=== PATIENT | female | born 1980 | race Caucasian/White ===

== ENCOUNTER 2024-12-02 13:37 | Emergency (ER) | payer MEDICARE, MEDICAID, SELFPAY ==
--- OUTSIDE RECORDS SUMMARY | 2023-08-17 04:15 | XMS_ITS ---
Author Organization [facility] vices Address [address] [place], [place] [id number] Care Team Providers Care Sales Office Administrator Name Role Phone Shi King Primary Care Provider [phone] Cezar Ayoub Unavailable [phone] REASON FOR VISIT labs / surgical referral Social History Sex Assigned At : Social History Observation Description Sex Assigned At Female Encounters Encounter Location Date Provider Diagnosis Main [address] [place], [place] [id number] 08/17/2023 Cezar Ayoub Plan Of Treatment No Information Progress Notes * Truong RIVEARelle LDOB: [birth year] (44 yo F)Acc No.[id number]:08/17/2023 Medical Note Patient: Ida CHILEL :?LEILA Eddy-CDOB:1980???Age:42 Y???Sex: FemaleDate:4Phone:[phone]:[address] [facility], [address], [id number]:Shi King Subjective: * Chief Complaints: * 1 . Labs / surgical referral. * Medical History: Objective: * Vitals: Assessment: Plan: * Treatment: * Billing Information: * Visit Code: * Procedure Codes: * Electronic signature of LEILA Eddy on 12/02/2024 at 02:39 PM EDTSign off status: Pending * Provider: Rekha Ayoub PA-C Date: 0 08/17/2023 Generated for Printing/Faxing/eTransmitting on:?12/02/2024 02:39 PM EDT
--- OUTSIDE RECORDS SUMMARY | 2023-08-19 12:00 | XMS_ITS ---
Author Organization [facility] vices Address [address] [place], [place] [id number] Care Team Providers Care Customer Engineering Specialist Name Role Phone Shi King Primary Care Provider [phone] Meli Tao Unavailable [phone] REASON FOR VISIT f/u Rash -Feet Social History Sex Assigned At : Social History Observation Description Sex Assigned At Female Encounters Encounter Location Date Provider Diagnosis Main [address] [place] [id number] 08/19/2023 Meli Tao Plan Of Treatment No Information Progress Notes * MIGUEL Ida LDOB: [birth year] (44 yo F)Acc No.[id number]:08/19/2023 Medical Note Patient: Ida CHILEL :?Meli So, MSN, INSTRUMENT REPAIRER HELPER, MANAGER IMPLEMENTATION-CDOB: 1980???Age:42 Y???Sex:FemaleDate:08/19/2023hone:[phone]:[address], [address], [place], [id number]:Shi King Subjective: * Chief Complaints: * 1 . f/u Rash -Feet. * Medical History: Objective: * Vitals: Assessment: Plan: * Treatment: * Billing Information: * Visit Code: * Procedure Codes: * Electronic signature of NAOMI Borja on 12/02/2024 at 02:38 PM EDTSign off status: Pending * Provider: Pawel So, MSN, INSTRUMENT REPAIRER HELPER, MANAGER IMPLEMENTATION-C Date: 0 08/19/2023 Generated for Printing/Faxing/eTransmitting on:?12/02/2024 02:38 PM EDT
--- OUTSIDE RECORDS SUMMARY | 2024-11-28 11:02 | XMS_ITS | Encounter Summary ---
Author Organization [facility] Address [address] [place] [address] Care Team Providers Care Internet Sourcer Name Role Phone Unavailable Primary Care Provider Unavailabl e Source Comments In the event this information is protected by the Federal Confidentiality of Alcohol and Drug AbusePatient Records regulations: The Federal rules restrict any use of the information to criminally investigate or prosecute any alcohol or drug abuse patient.[facility] Reason for Visit * Auth/Cert (Routine)SpecialtyDiagnoses / ProceduresReferred By ContactReferred To ContactHOSP INPATIENT Diagnoses Epilepsy, unspecified, not intractable, without status epilepticus (HCC) Procedures EEG PHYS/QHP EA INCR>12HR<26HR AFTER 24HR W/VEEG HOSP MAIN [address] [place] [address] Phone: tel: Referral IDStatusReasonStart DateExpiration DateVisits RequestedVisits [id number] Encounter Details DateTypeDepartmentCare Team (Latest Contact Info)Wgujbnpyrbs59/20/2025 11:02 AM EDT - 12/01/2024 4:17 PM EDTHospital Encounter HOSP MAIN [address] [place] [id number] Jesus Alberto Uriostegui V, MD [address] [place] [address] Erica Morrison MD [address] [place] [address] Epilepsy, unspecified, not intractable, without status epilepticus (HCC) [G40.909] Discharge Disposition: Home Social History Tobacco UseTypesPacks/DayYears UsedDateSmoking Tobacco: NeverSmokeless Tobacco: NeverAlcohol UseStandard Drinks/WeekCommentsNot Currently0 (1 standard drink = 0.6 oz pure alcohol)PHQ-2AnswerDate RecordedPHQ-2 upmnd717Hunger Vital SignAnswerDate RecordedWithin the past 12 months, you worried that your food would run out before you got the money to buymore.Never true11/29/2024Within the past 12 months, the food you bought just didn't last and you didn't have money to get more.Never true11/29/2024PRAPARE - TransportationAnswerDate RecordedIn the past 12 months, has lack of transportation kept you from medical appointments or from getting medications?No11/29/2024In the past 12 months, has lack of transportation kept you from meetings, work, or from getting things needed for daily living?No11/29/2024Housing Stability Vital SignAnswerDate RecordedIn the last 12 months, was there a time when you were not able to pay the mortgage or rent on time?No11/29/2024In the past 12 months, how many times have you moved where you were living?t any time in the past 12 months, were you homeless or living in a penitentiary (including now)?No11/29/2024HC UtilitiesAnswerDate RecordedIn the past 12 months has the electric, gas, oil, or water [employer] threatened to shut off services in your home?No11/29/2024rea Deprivation IndexAnswerDate RecordedNational Score (1-100), lower number is lower rpdx912107/02/2023State Score (1-10), lower number is lower elbd95907/02/2023 Data from: https://www.neighborhoodatlas.[facility].edu/. Last address used for [address]lette MEHTA07/02/[birth year]23CommentsNoSex and Gender InformationValueDate RecordedSex Assigned at BirthNot on fileLegal SexFemale 01/11/2012 8:35 AM ESTGender CyzycxgxYgdqdocng52/20/2025 11:41 AM EDTSexual OrientationLesbian or Gay09/14/2023 10:48 AM EDTdocumented as of this encounter Last Filed Vital Signs Vital SignReadingTime TakenCommentsBlood Oxhpzzdh653/7910 11:29 AM EDT Gguhl0638/23/2025 11:29 AM FSJPuudneqbwkd81.7 ??C (98.1 ??F)12/01/2024 11:29 AM EDTRespiratory Rpcm8306 11:29 AM EDTOxygen Nhsmfcdezq659%12/01/2024 11:29 AM EDTInhaled Oxygen Concentration--Utnvby36.2 kg (148 lb 2.4 oz) 11/28/2024 11:18 AM MGWQlndca397.6 cm (5' 4 )11/28/2024 11:23 AM EDTBody Mass Index25.431 11:18 AM EDTdocumented in this encounter Functional Status * Are you deaf or do you have serious difficulty hearing?AnswerDate of FmeljkiciaRarbwdQo46/01/2024 11:06 AM Angelica Gibson RN * Are you blind or do you have serious difficulty seeing, even when wearing glasses?AnswerDate of IrgdriepnkXwxnvrNs18/01/2024 11:06 AM Angelica Gibson RN * Do you have serious difficulty walking or climbing stairs?AnswerDate of TosiwtgdchNfrkbaPy33/01/2024 11:06 AM Angelica Gibson RN * Because of a physical, mental, or emotional condition, do you have difficulty doing errands alone such as visiting a doctor's office or shopping?AnswerDate of LbqhujoqzfHmfzdvCb58/01/2024 11:06 AM Angelica Gibson RN documented as of this encounter Mental Status * Because of a physical, mental, or emotional condition, do you have serious difficulty concentrating, remembering, or making decisions?AnswerEntry Date ImrqrcGa43/01/2024 11:06 AM Angelica Gibson RN documented in this encounter Discharge Summaries * Lesli Gasca PA-C - 12/01/2024 11:44 AM EDT Images from the original note were not included. DISCHARGE SUMMARY PATIENT NAME: Ida Jacome ADMISSION DATE: 11/28/2024 DISCHARGE DATE: 12/01/2024 ADMITTING SERVICE: Epilepsy ATTENDING PHYSICIAN: Erica Morrison MD Code Status: Not on file Referring/Secondary Physician: NA Highest Readmission Risk Score: 5 The 30 day readmissions risk score is derived from an internally validated risk model which evaluates patient level characteristics, utilization history, medication orders and lab results up until the day of discharge. Patients with a score of 39 or above are considered highest risk for readmission. Specific patient level drivers will be listed at the bottom of the summary. The 30 day readmissions risk score is derived from an internally validated risk model which evaluates patient level characteristics, utilization history, medication orders and lab results up until the day of discharge. Patients with a score of 40 or above are considered highest risk for readmission. Specific patient level drivers will be listed at the bottom of the summary. REASON FOR HOSPITALIZATION: Breakthrough Seizures IMPORTANT TESTS AND PROCEDURES: Continuous Video EEG and EKG HOSPITAL COURSE: This is 43 yo RH nonbinary patient (female at , they/them) with history of focal epilepsy who presented for continued auras/seizures multiple times per week despite up titration of anti-seizure medication. Current events of concern started around 3 years ago, however also had prior different events of passing out/LOC dating back to 19 yo. EEG in June 2023 captured one seizure characterized asarousal from sleep with tachycardia and feeling hot, EEG onset from left temporal region, and completed MRI Brain that was non-focal. They were started on Oxcarbazepine 450 mg BID, has since been increased to total of 1500 mg/day. Despite increase patient has continued to have auras/seizures multiple times per week, sometimes in clusters up to 20 per day. Now admitted for seizure burden assessment. Of note, patient also expressed other medical concerns on admission including vision changes, episodes of right facial droop, ear ringing, and concern about possible thyroid dysfunction. They were monitored on continuous video-EEG from 11/28-12/01/2024, Oxcarbazepine was continued at home dose. Patient had ten epileptic seizures on medications, semiology consistent with home description and seizure captured in June 2023, feeling hot, palpitations, nausea, and can progress to unresponsiveness (occurred from sleep and wakefulness). See separate EEG report for further details. Duringadmission patient required Midazolam IV for seizure cluster, and then was loaded with Lacosamide 200 mg IV. EKG completed before LCM load, VT interval WNL. Then started on Lacosamide 100 mg BID PO, with plan to increase to 150 mg BID in one week. Will continue Oxcarbazepine at dose of 600 mg BID x1 week then STOP. Patient also given Clonazepam 0.5 mg ODT for seizure clusters. Seizure precautions advised. Lab form provided to go to local lab to check trough Lacosamide level after being on goal dose x1 week. FINAL DIAGNOSIS: Active Hospital Problems Diagnosis POA Focal epilepsy (HCC) Yes Hyponatremia Yes Adult ADHD Yes Anxiety Yes PTSD (post-traumatic stress disorder) Yes GERD (gastroesophageal reflux disease) Yes Interstitial cystitis Yes Resolved Hospital Problems No resolved problems to display. Transitions of Care Critical Issues: SPECIALIST FOLLOW-UP: Epilepsy BAKER MEDICATION CHANGES: Oxcarbazepine 600 mg BID x1 week then STOP START Lacosamide 100 mg BID, then increase to 150 mg BID in one week LABS AND PROCEDURES PENDING AT DISCHARGE: Finalized Video EEG Report CONSULTING TEAMS DURING HOSPITALIZATION: None Treatment Team: Attending Provider: Erica Morrison MD Physician Records Analysis Manager: Lesli Gasca PA-C PATIENT CONDITION AT DISCHARGE: Stable DISCHARGE DISPOSITION: Home with Self Care Discharge Physical Exam: VITAL SIGNS: BP 130/79 Pulse 90 Temp 36.7 ??C (98.1 ??F) (Oral) Resp 16 Ht 162.6 cm (5' 4 ) Wt 67.2 kg (148 lb 2.4 oz) SpO2 100% BMI 25.43 kg/m?? GENERAL: Alert, no distress, cooperative LUNGS: Lungs clear to auscultation, Good diaphragmatic excursion CARDIAC: Normal S1 and S2; no rubs, murmurs, or gallops NEURO: A&Ox3, able to follow 1 and 2 step commands, fluent speech Facial movements symmetric, EOMI, no nystagmus Moves all extremities equally, no focal weakness INFORMATION PROVIDED TO PATIENT: Rescue medication Seizure first aid Seizure tracking- DIET: Resume your pre-hospital diet ACTIVITY: Seizure Precautions: no bathing or swimming unsupervised, no driving, no use of heavy machinery, no use of sharp moving objects (i.e. power tools), avoid heights. If active epilepsy, driving will need to be cleared by an Epileptologist. Driving laws vary state to state, refer to state lawfor restrictions. ALLERGIES Allergen Reactions Bactrim [Sulfametho* Shortness of Breath swelling Codeine Shortness of Breath swelling Compazine [Prochlor* Shortness of Breath swelling Imitrex [Sumatripta* Shortness of Breath swelling Penicillins Shortness of Breath swelling Zomig [Zolmitriptan] Shortness of Breath swelling DISCHARGE MEDICATION: Medication List START taking these medications * lacosamide 100 mg Tab Commonly known as: VIMPAT Take 1 tablet by mouth two times a day for 7 days. * lacosamide 150 mg Tab Commonly known as: VIMPAT Take 1 tablet by mouth two times a day for 180 days. Patient should start on December 05, 2024. Start taking on: December 05, 2024 * This list has 2 medication(s) that are the same as other medications prescribed for you. Read thedirections carefully, and ask your doctor or other care provider to review them with you. CHANGE how you take these medications clonazePAM orally disintegrating 0.5 mg disintegrating tablet Commonly known as: KlonoPIN WAFER Take one tablet as needed for 3 or more seizure/auras in 8 hours. Do not exceed 2 tablets in 24 hours. What changed: additional instructions CONTINUE taking these medications AdderalL 10 mg tablet Generic drug: dextroamphetamine-amphetamine busPIRone 5 mg tablet Commonly known as: BUSPAR guanFACINE 1 mg tablet Commonly known as: TENEX LINZESS 145 mcg capsule Generic drug: linaclotide loratadine 10 mg tablet Commonly known as: CLARITIN melatonin 10 mg Cap MYRBETRIQ 50 mg Tb24 Generic drug: mirabegron omeprazole 40 mg capsule Commonly known as: PriLOSEC PRELIEF PO tiZANidine 4 mg tablet Commonly known as: ZANAFLEX STOP taking these medications albuterol HFA 90 mcg/actuation inhaler Commonly known as: PROVENTIL HFA, VENTOLIN HFA ondansetron 4 mg tablet Commonly known as: ZOFRAN OXcarbazepine 600 mg tablet Commonly known as: TRILEPTAL VITAMIN D3 PO Where to Get Your Medications These medications were sent to [facility] [address] Hours: Thursday-Thursday, 8am-6pm lacosamide 100 mg Tab These medications were sent to [facility] #[id number] [place] [address] - [address] [facility] [phone] [place] [id number] [address] [facility] [address] clonazePAM orally disintegrating 0.5 mg disintegrating tablet lacosamide 150 mg Tab PLAN OF CARE: Plan of care discussed with Provider, RN, Patient FUTURE APPOINTMENTS: Future Appointments Date Time Provider Department Center 12/14/2024 3:00 PM Monse Johnson APRN.DOCK CLERK [facility]50[facility] Main S Bld Please follow up with your Epileptologist. Dr. [place] [address] The patient's risk for 30-day readmission is determined using the following contributing factors: The patient's risk for 30-day readmission is determined using the following contributing factors: Predictive Model Details 5% (Low) Factor Value Calculated 2024 05:20 -72% Hospital Unit HOSP MAIN M[facility] READMISSION RISK Model -16% Admission Provider Speciality NEUROLOGY -11% Zip Code [address] -9% ED visits (365d) 0 -6% Facility [facility] 6% Joanne Penny 27 -5% Admissions (365d) 1 -5% Length of Stay (d) 2 -5% Observations (365d) 0 5% Current Age 44 I have performed the tubj-fw-pdic and relevant services for a total of >30 minutes. SIGNATURE: Lesli Gasca PA-C DATE: December 01, 2024 TIME: 11:45 AM Cosigned by Erica Morrison MD at 12/01/2024 1:04 PM EDT Associated attestation - Erica Morrison MD - 12/01/2024 1:04 PM EDT EPILEPSY CENTER STAFF NOTE [facility] STAFF PHYSICIAN NOTE OF PERSONAL INVOLVEMENT IN CARE I have reviewed the discharge instructions and discharge summary obtained and documented by the nurse practitioner and I personally participated in the baker components. I have discussed the case and management of the patient's care. Erica Frank M.D documented in this encounter Discharge Instructions * Discharge Instr - Other Orders* Lesli Gasca PA-C - 2024 12:15 PM EDT My Hospital Stay and Summary This is a summary of your hospital stay. Please read it carefully and share it with your family andhealthcare providers. Date of Admission: 11/28/2024 Date of Discharge: 12/01/2024 Where I Will be Going after Discharge: Home with Self Care My Condition at Discharge: Stable My Doctors and Medical Team: My Main Hospital Doctor: Erica Morrison MD My Primary Care Physician (Family Doctor): No primary care provider on file. Other Medical Team Members: None The Reason I was in the Hospital/Main Diagnosis: Breakthrough Seizures Other Problem(s)/Diagnosis: Principal Problem: Focal epilepsy (HCC) Active Problems: GERD (gastroesophageal reflux disease) Interstitial cystitis PTSD (post-traumatic stress disorder) Anxiety Adult ADHD Hyponatremia Resolved Problems: * No resolved hospital problems. * Summary of What Happened When in the Hospital: You were admitted to the Epilepsy Monitoring Unit (EMU) on 11/28/2024 and were monitored with continuous video EEG. We captured 5 of your typical seizures, with discharges coming from left temporal. This was consistent with your prior evaluation and supports diagnosis of focal epilepsy. A couple ofthese seizures occurred out of sleep, concern you may be having more seizures at home that you are not aware of as well. To treat your epilepsy, medication changes were made as follows: Week 1: - Take Oxcarbazepine (Trileptal) to ONE tablets (600 mg) twice daily - START Lacosamide (Vimpat) 100 mg twice daily. Week 2 (and moving forward) - STOP Oxcarbazepine (Trileptal) - INCREASE Lacosamide (Vimpat) to 150 mg twice daily, prescription sent to your local pharmacy for 150 mg strength tablets so you will take one tablet twice daily Week 3: Please go to local lab and check Lacosamide level, best to go in lead press operator before you take your AM dose or in the alter afternoon. Lab form was provided to you to bring with you We have also sent new rescue medication prescription to your local pharmacy, taking Clonazepam 0.5 mg oral disintegrating tablets as needed for 3 or more seizures/auras in 8 hours. Max TWO doses in 24 hours. If you have any questions about your stay in the Epilepsy Monitoring Unit (EMU), please contact theoffice of: Dr. Erica Frank at . Please see appointment dates and times below. Operations Performed While in the Hospital: None Important Tests/Procedures: Continuous Video EEG and EKG Instructions for My Care at Home or Healthcare Facility These instructions explain what you or your childcare administrator need to do to continue your care at home or at another healthcare facility Please go over these instructions with your nurse and childcare administrator. If you are not sure about something, please ask. Additional Health Information I Need to Know After I Leave the Hospital: RESCUE MEDICATION A new seizure rescue medication was provided. Your family or close friends should know where you keep the rescue medication, and how to adminiser this during or after a seizure. They should never tryto give the medication if there is risk of harm to you or your family (ex. fingers bit). Please usethis medication as follows: Clonazepam 0.5 mg oral disintegrating tablets (ODT), take 1 tablet as needed for 3 or more seizures/auras in 8 hours. Max TWO tablets in 24 hours GENERAL SEIZURE PRECAUTIONS AND DRIVING SAFETY Please continue to practice seizure precautions and first aid. Please do not climb to high places, such as rooftops, up trees or mountain climbing. When near water, you should be supervised by an adult or person who is aware of risk of seizures, for example during tub baths, swimming, boating or fishing. A helmet should be worn when riding a bike. Driving laws vary state to state, so please referto your state law for restrictions. You must be cleared to drive by your seizure doctor. First Aid for a Grand Mal Seizure Time the seizure from start to finish so you know how long it lasted (most grand mal seizures are no more than 1 or 2 minutes long). Remain calm and do not panic, call for assistance if needed. Lower the person safely to the ground and loosen any tight clothing. Place the person in a side-lying position so that any saliva or vomit will easily drain out of the mouth. Actively seizing people are at a increased risk of choking on their saliva or vomit. Do not put any objects such as a tongue depressor or fingers into the mouth. Protect the persons head from injury while they are on their side. If the seizure is continuing longer than 5 minutes, use rescue medications (if any prescribed) and or call the ambulance at 911 for transportation to the nearest Emergency Room. After a grand mal seizure, people are very sleepy and tired for several minutes or even a couple ofhours. They may also complain of headache, nausea and may vomit. Please Remember Call your doctor if you feel that the severity or number of seizures has changed from baseline. If you have several grand mal seizures without waking up in-between, call 911 or go to nearest ER and please notify your doctor. Seizure Safety During Sleep Objects near the bed may cause injury if someone that has a seizure is prone to falling out of bed.Move heavy furniture, floor lamps, night stands and other dangerous objects away from the bed. Mattresses and pillows should be firm and not soft. All stuffed animals, toys and other objects should be removed from the bed. Blankets can be layered but should be thin, down comforters may be too soft. Keep the bed as low to the ground as possible. Some patients with night time seizures may sleep with their mattress on the floor. Others may pad the floor with mats (such as exercise mats used in workout facilities). During sleep, keep the bedroom door cracked open so someone can hear if you are having a seizure. Locking the bedroom door is not recommended. Some people choose to use baby monitors to observe forseizures at night. SEIZURE TRACKING We ask that you keep a record of the seizures that are occurring. Please do this in the way that works the best for you. We would like to know the number of seizures per day including the date of theseizures, the length of time the seizure lasts, and the intensity of the seizure. If this is a different type of seizure than what is normal, please document a description and call your doctor. Also, videos are always helpful. If the seizures are changing in any way, please try to record themon video if possible. This can be done on your cell phone or via a video recorder. This will help when you meet with your doctor. For some information of keeping track of the seizures, you can visit the web site: https://www.seizuretracker.com/ Pain Management: No active pain issues that require management. Wound Care/Surgical Site Care: None Supplies or Equipment I Need: None Diet (What I Can Eat): Resume your pre-hospital diet Activity and Exercise: (When I can drive, return to work) Seizure Precautions: no bathing or swimming unsupervised, no driving, no use of heavy machinery, nouse of sharp moving objects (i.e. power tools), avoid heights. If you have active epilepsy, drivingwill need to be cleared by an Epileptologist. Do not drive at this time. Driving laws vary state tostate, so please refer to your state law for restrictions. Follow-Up Appointment Reminders: Future Appointments Date Time Provider Department Center 12/14/2024 3:00 PM Monse Johnson APRN.DOCK CLERK [facility] Please follow up with your Epileptologist. Dr. Erica Frank [address] [place] [address] Test Results Not Available at this Time: Finalized Video EEG Report documented in this encounter Medications at Time of Discharge MedicationSigDispense QuantityRefillsLast FilledStart DateEnd Date lacosamide (VIMPAT) 100 mg tab Indications:Focal epilepsy (HCC)Take 1 tablet by mouth two times a day for 7 days. 14 tablet 12/01/2024 11:35 AM EDT1 lacosamide (VIMPAT) 150 mg tab Indications:Focal epilepsy (HCC)Take 1 tablet by mouth two times a day for 180 days. Patient should start on December 05, 2024. 180 tablet / clonazePAM orally disintegrating (KLONOPIN WAFER) 0.5 mg disintegrating tablet Indications:Focal epilepsy (HCC)Take one tablet as needed for 3 or more seizure/auras in 8 hours. Do not exceed 2 tablets in 24 hours. 10 tablet dextroamphetamine-amphetamine (ADDERALL) 10 mg tablet Take 10 mg by mouth once daily.0 linaclotide (LINZESS) 145 mcg capsule Take 145 mcg by mouth once daily. Take capsule on an empty stomach at least 30 minutes before a meal at the same time each day. Capsule should be swallowed whole. DO NOT chew or crush guanFACINE (TENEX) 1 mg tablet Take 1 mg by mouth once daily. busPIRone (BUSPAR) 5 mg tablet Take 5 mg by mouth two times a day. melatonin 10 mg cap Take 10 mg by mouth daily at bedtime. omeprazole (PRILOSEC) 40 mg capsule Take 40 mg by mouth two times a day. tiZANidine (ZANAFLEX) 4 mg tablet Take 8 mg by mouth two times a day as needed. Takes at bedtime nightly MYRBETRIQ 50 mg Tb24 Take 50 mg by mouth daily at bedtime. CALCIUM GLYCEROPHOSPHATE (PRELIEF ORAL) Take 2 tablets by mouth daily at bedtime. loratadine 10 mg tablet Take 10 mg by mouth once daily. Takes every daydocumented as of this encounter Progress Notes * [place] Mario LISW - 11/29/2024 4:01 PM EDT CARE MANAGEMENT: ASSESSMENT AND DISCHARGE PLAN SERVICE DATE: November 29, 2024 SERVICE TIME: 3:30 PCP: No primary care provider on file. Primary Contact: Extended Emergency Contact Information Primary Emergency Contact: ENRIQUETA FOSTER Mobile Relation: Significant other Admission Status: Inpatient Insurance Provider: MEDICARE A AND B Discharge Planning requested by: Per Department Practice Potential Transition Plans Home Advance Directives Current Advance Directive: None Mortgage Analyst Attempted to Assist with AD Completion: No Current Living Arrangements and Support Lives with: Spouse/significant other Type of Residence: Private Residence (Apartment or Condo) Support: Children, Spouse/significant other, Therapist How do you manage to accomplish the following: Independent: Ambulation, Bathe/Shower, Dress, Meals/Meal Prep, Going to the bathroom, Medication Management Needs Assistance: Transportation to appointments/community Current Services/Equipment Current Post-Acute Service(s): None Discharge Planning Patient Goal(s): General wellness [place] Explained: [place] Given: No Reason Not Given: No placements necessary Are you interested in bedside delivery of your medications? Yes Discharge Planning Participant(s): Patient Patient/Family Comments: Caregiver Assessment: Caregiver is ready, willing and able to meet the patient's needs as recommended by the inter-professional team: No Caregiver needed Transport at Discharge: Transportation Arrangements: Car Needs Prior to Discharge: Needs Prior to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 temporal Ictal findings: none PLAN: d/c trileptal veeg seizure precaution sleep deprivation Continued inpatient admission is required due to ongoing need for continuous monitoring, immediate medical intervention capability, and potential medication changes under controlled conditions as supported by the following: Continuous video-EEG monitoring for 4 days will allow for an adequate sample of data to help determine diagnosis Erica Frank M.D [1] Social History Tobacco Use Smoking status: Never Smokeless tobacco: Never Substance Use Topics Alcohol use: Not Currently Drug use: Yes Comment: Medical Marijuana documented in this encounter Nursing Notes * Jessica Garcia RN - 12/01/2024 4:17 PM EDT RN reviewed d/c instructions with pt. Pt verbalized understanding of all d/c instructions includingf/u care, sz precautions, and medications. Pt assisted off floor via DOUGIE Joshi. * Shannan Tolbert RN - 2024 1:24 AM EDT Patient slept deprove until 0100 * Austin Briceno RN - 11/28/2024 12:14 PM EDT Other: Pt admitted to unit in stable condition. Oriented to room, call light, sz button, partners in safety. IV placed. LIP and platform power technician notified. documented in this encounter Miscellaneous Notes * Plan of Care - More Gonsalez - 12/01/2024 4:17 PM EDT Images from the original note were not included. PHARMACY BEDSIDE DELIVERY SERVICE Patient Name: Ida Jacome The marked outpatient medications were Filled at: [facility] and delivered to the patient's bedside to PATIENT Medication List START taking these medications * lacosamide 100 mg Tab Commonly known as: VIMPAT Take 1 tablet by mouth two times a day for 7 days. DELIVERED * lacosamide 150 mg Tab Commonly known as: VIMPAT Take 1 tablet by mouth two times a day for 180 days. Patient should start on December 05, 2024. Start taking on: December 05, 2024 Sent to home pharmacy for future use- patient aware * This list has 2 medication(s) that are the same as other medications prescribed for you. Read thedirections carefully, and ask your doctor or other care provider to review them with you. CHANGE how you take these medications clonazePAM orally disintegrating 0.5 mg disintegrating tablet Commonly known as: KlonoPIN WAFER Take one tablet as needed for 3 or more seizure/auras in 8 hours. Do not exceed 2 tablets in 24 hours. What changed: additional instructions Patient already has- confirmed CONTINUE taking these medications AdderalL 10 mg tablet Generic drug: dextroamphetamine-amphetamine busPIRone 5 mg tablet Commonly known as: BUSPAR guanFACINE 1 mg tablet Commonly known as: TENEX LINZESS 145 mcg capsule Generic drug: linaclotide loratadine 10 mg tablet Commonly known as: CLARITIN melatonin 10 mg Cap MYRBETRIQ 50 mg Tb24 Generic drug: mirabegron omeprazole 40 mg capsule Commonly known as: PriLOSEC PRELIEF PO tiZANidine 4 mg tablet Commonly known as: ZANAFLEX You might also be taking other medications not listed above. If you have questions about any of your other medications, talk to the person who prescribed them or your Primary Care Provider. STOP taking these medications albuterol HFA 90 mcg/actuation inhaler Commonly known as: PROVENTIL HFA, VENTOLIN HFA ondansetron 4 mg tablet Commonly known as: ZOFRAN OXcarbazepine 600 mg tablet Commonly known as: TRILEPTAL VITAMIN D3 PO More Gonsalez December 01, 2024 6:08 PM * Hospital Course - Lesli Gasca PA-C - 2024 2:48 PM EDT This is 43 yo RH nonbinary patient (female at , they/them) with history of focal epilepsy who presented for continued auras/seizures multiple times per week despite up titration of anti-seizure medication. Current events of concern started around 3 years ago, however also had prior different events of passing out/LOC dating back to 19 yo. EEG in June 2023 captured one seizure characterized asarousal from sleep with tachycardia and feeling hot, EEG onset from left temporal region, and completed MRI Brain that was non-focal. She was started on Oxcarbazepine 450 mg BID, has since been increased to total of 1500 mg/day. Despite increase she has continued to have auras/seizures multiple times per week, sometimes in clusters up to 20 per day. She was admitted for seizure burden assessment.Of note, patient also expressed other medical concerns on admission including vision changes, episodes of right facial droop, ear ringing, and concern about possible thyroid dysfunction. They were monitored on continuous video-EEG from 10/20-12/01/2024, Oxcarbazepine was continued at home dose. Patient had five epileptic seizures, semiology consistent with home description and seizure captured in June 2023, feeling hot, palpitations, nausea, and can progress to unresponsiveness (occurred from sleep and wakefulness). See separate EEG report for further details. During admission patient required Midazolam IV for seizure cluster, and then later was loaded with Lacosamide 200 mg IV.EKG completed before LCM load, VT interval WNL. She was then started on Lacosamide 100 mg BID, withplan to increase to 150 mg BID in one week. Will continue Oxcarbazepine at dose of 600 mg BID x1 week then stop. She was also given Clonazepam 0.5 mg ODT for seizure clusters. Seizure precautions advised. Lab form provided to go to local lab to check trough Lacosamide level after being on goal dose x1 week. * Allied [facility] - Christianne Kidd Art Therapist - 2024 9:35 AM EDT ART THERAPY NOTE SERVICE DATE: 2024 SERVICE TIME: 9:35AM Referred By: ANAYA Reason for Referral: Coping Skills Session Type: Initial COMMENTS: Consult received and appreciated. Pt observed asleep with lights out and blankets pulled up. Did not disturb. Will follow up as able. SIGNATURE: Tereso Sutton PATIENT NAME: Ida Jacome DATE: 2024 TIME: 10:02 AM PAGER/CONTACT #: [phone] documented in this encounter Plan of Treatment DateTypeDepartmentCare Team (Latest Contact Info)Snrqqyceztz28/05/2025 3:[address] [facility] Neurology [address] [place] [address] Mnose Johnson APRN.DOCK CLERK [address] [facility] [address] [place] [address] EMU Follow-up Visit04/14/2025 9:[address] [facility] Neurology [address] [place] [address] Erica Morrison MD [address] [place] [address] EMU Follow upNameTypePriorityAssociated DiagnosesDate/TimeEEG MONITORING ADULT EMU (24 HOUR WITH VIDEO)UHCQKCXCFVrehubd46/21/2025EEG MONITORING ADULT EMU (24 HOUR WITH VIDEO)GSVZKMWYMCobsaan88/20/2025EEG MONITORING ADULT EMU (24 HOUR WITH VIDEO)VETAOKOWKVoqilgi82/21/2025EEG MONITORING ADULT EMU (24 HOUR WITH VIDEO) QGRPEPJRHToubphm55/22/2025EEG MONITORING ADULT EMU (24 HOUR WITH VIDEO)NEUROLOGY Ryjubfn4412/01/2024ECG WXPPEGMGPIAUhlprjn90/22/2025 11:15 AM EDTdocumented as of this encounter Procedures Procedure NamePriorityDate/TimeAssociated DiagnosisCommentsEPIL VEEG MONITORING ADULT OTRRwothra50/23/2025ECG RAQRKNLGRlhatwv85/22/2025 11:15 AM EDTEPIL VEEG MONITORING ADULT NABOtuqcwg60/22/2025EPIL VEEG MONITORING ADULT EMURoutine 11/29/2024MAGNESIUM SOOLljeyxo29/20/2025 7:25 PM EDT OXCARBAZEPINE JSBAviwb39/20/2025 7:25 PM EDT TSH ZUSMjgvlek19/ 7:25 PM EDT PROTHROMBIN WZEVSjmrgki10/20/2025 7:25 PM EDT PHOSPHORUS ATAFAPUHFKgqlqxs34/20/2025 7:25 PM EDT COMPREHENSIVE METABOLIC VSONPHsaxczt36/20/2025 7:25 PM EDT CBC + JMQMHatqtfv18/20/2025 7:25 PM EDT ACTIVATED NCNPlwiolh11/20/2025 7:25 PM EDT TOX SCREEN ROUT NGJawqhjl21/20/2025 3:02 PM EDT HCG QUAL VAWNRJ84 3:02 PM EDT EPIL VEEG MONITORING ADULT CVRBkaxaib70/20/2025documented in this encounter Results * (ABNORMAL) OXCARBAZEPINE BLD (11/28/2024 7:25 PM EDT)ComponentValueRef Range Test MethodAnalysis TimePerformed AtPathologist Sjosuwsza56Haumuuqqixawoguhcf 38.8(H)3.0 - 35.0 ug/mL2024 5:40 AM EDTCSELECT MEDICAL [facility] LABComment: This test was developed, and its performance characteristics determined by the [facility] Department of Pathology and Laboratory Medicine. It has not been cleared or approved by the FDA. The [facility] Department of Pathology and Laboratory Medicine is regulated under CLIA as qualified to perform high-complexity testing. This test is used for clinical purposes. It should not be regarded as investigational or for research.Specimen (Source) Anatomical Location / LateralityCollection Method / VolumeCollection Time Received TimeBloodBLOOD SPECIMEN / UnknownVenipuncture / Vptmofk0111/28/2024 7:25 PM EDT1 7:33 PM EDT Narrative Authorizing ProviderResult TypeResult StatusElizabeth Campos DEE-CLABORATORYFinal ResultPerforming OrganizationAddressCity/State/ZIP CodePhone Number [facility] [address] [place] [address], * THYROID STIMULATING HORMONE (11/28/2024 7:25 PM EDT)ComponentValueRef Range Test MethodAnalysis TimePerformed AtPathologist SignatureTSH2.4100.270 - 4.200 mIU/L1 8:53 PM EDTCSELECT MEDICAL [facility] LABSpecimen (Source) Anatomical Location / LateralityCollection Method / VolumeCollection Time Received TimeBloodBLOOD SPECIMEN / UnknownVenipuncture / Flzstps4811/28/2024 7:25 PM EDT1 7:33 PM EDT Narrative Authorizing ProviderResult TypeResult StatusElinehal CERNACLABORATORYFinal ResultPerforming OrganizationAddressCity/State/ZIP CodePhone Number [facility] [address] * ACTIVATED PARTIAL THROMBOPLASTIN TIME (11/28/2024 7:25 PM EDT)ComponentValue Ref RangeTest MethodAnalysis TimePerformed AtPathologist IkimejoemMFAY48.823.0 - 32.4 sec11/28/2024 7:50 PM EDTCTUSCARAWAS HOSPITAL MAIN LABSpecimen (Source) Anatomical Location / LateralityCollection Method / VolumeCollection Time Received TimeBloodBLOOD SPECIMEN / UnknownVenipuncture / Nmpjrpb3411/28/2024 7:25 PM EDT1 7:33 PM EDT Narrative [facility] - 11/28/2024 7:50 PM EDT Unfractionated Heparin Therapeutic Ranges: Standard Heparin Nomogram: 53 to 78 seconds (anti-Xa level of 0.3 to 0.7 U/ml) Low Dose/ACS Nomogram: 49 to 67 seconds (anti-Xa level of 0.2 to 0.5 U/ml) Stroke Treatment Nomogram: 49 to 67 seconds (anti-Xa level of 0.2 to 0.5 U/ml) Note: The APTT therapeutic range has been determined for the current lot of laboratory APTT reagentin use throughout the [facility]. Authorizing ProviderResult TypeResult StatusLesli CERNACLABORATORYFinal ResultPerforming OrganizationAddressCity/State/ZIP CodePhone Number [facility] [address] [place] [phone], * PROTHROMBIN TIME (11/28/2024 7:25 PM EDT)ComponentValueRef RangeTest Method Analysis TimePerformed AtPathologist SignaturePT Sec10.49.7 - 13.0 sec 11/28/2024 7:50 PM EDTCO[facility] MAIN LABINR1.00.9 - 1.310/ 7:50 PM EDTCPROMEDICA [facility] MAIN LABComment: Vitamin K Antagonist (VKA) Therapeutic Range: INR 2 to 3 (Target INR of 2.5) Note: For patients treated with VKA drugs, such as warfarin, the [place] [employer] 2012 Guideline recommends a therapeutic INR range of 2 to 3 (target INR of 2.5). This recommendation includes high-risk patients with antiphospholipid syndrome with previous arterial or venous thromboembolism, current-generation mechanical or bioprosthetic aortic heart valve replacement. Note: Patients with mechanical aortic valve replacement and additional risk factors for thromboembolic events (atrial fibrillation, previous thromboembolism, LV dysfunction, hypercoagulable conditions) or an older generation mechanical AVR (i.e., ball in-Cage) or any mechanical MVR should have a INR therapeutic range of 2.5 to 3.5 (target INR of 3). Guyatt GH, et al. Chest 2012, 141:7S-47S Sen RA, et al. JAC 2017, 70: 252-289 Specimen (Source)Anatomical Location / LateralityCollection Method / Volume Collection TimeReceived TimeBloodBLOOD SPECIMEN / UnknownVenipuncture / Unknown 11/28/2024 7:25 PM EDT1 7:33 PM EDT Narrative Authorizing ProviderResult TypeResult StatusElizabedali DEE-CLABORATORYFinal ResultPerforming OrganizationAddressCity/State/ZIP CodePhone Number [facility] [address] [place] [address], * PHOSPHORUS INORGANIC (11/28/2024 7:25 PM EDT)ComponentValueRef RangeTest MethodAnalysis TimePerformed AtPathologist SignaturePhosphorus2.8mg/dL 11/28/2024 8:46 PM EDTCTUSCARAWAS HOSPITAL MAIN LABSpecimen (Source)Anatomical Location / LateralityCollection Method / VolumeCollection TimeReceived Time BloodBLOOD SPECIMEN / UnknownVenipuncture / Nwbfyny9611/28/2024 7:25 PM EDT 11/28/2024 7:33 PM EDT Narrative Authorizing ProviderResult TypeResult StatusElizamichael CERNACLABORATORYFinal ResultPerforming OrganizationAddressCity/State/ZIP CodePhone Number [facility] [address] [place] [address], * MAGNESIUM (11/28/2024 7:25 PM EDT)ComponentValueRef RangeTest MethodAnalysis TimePerformed AtPathologist SignatureMagnesium2.11.7 - 2.3 mg/dL11/28/2024 8:46 PM EDTCTUSCARAWAS HOSPITAL MAIN LABSpecimen (Source)Anatomical Location / LateralityCollection Method / VolumeCollection TimeReceived TimeBloodBLOOD SPECIMEN / UnknownVenipuncture / Hrphguk8211/28/2024 7:25 PM EDT1 7:33 PM EDT Narrative Authorizing ProviderResult TypeResult StatusLesli PAREDESBORATORYFinal ResultPerforming OrganizationAddressCity/State/ZIP CodePhone Number [facility] [address] [place] [address], * (ABNORMAL) COMPREHENSIVE METABOLIC PANEL (11/28/2024 7:25 PM EDT)Component ValueRef RangeTest MethodAnalysis TimePerformed AtPathologist Signature Protein, Total7.16.3 - 8.0 g/dL11/28/2024 8:46 PM EDTCLEVELAND [facility]INIC [facility] LAB Albumin4.53.9 - 4.9 g/dL11/28/2024 8:46 PM EDTCO[facility] LAB Calcium, Total9.28.5 - 10.2 mg/dL11/28/2024 8:46 PM EDTCOH[facility] MAIN LABBilirubin, Total0.30.2 - 1.3 mg/dL11/28/2024 8:46 PM EDTCOH[facility] MAIN LABAlkaline Eoxqobttpjj3172 - 113 U/L1 8:46 PM EDTCOH[facility]IN LTLKJQ51(L)14 - 40 U/L1 8:46 PM EDTCOH[facility]IN TYDUKZ5591 - 54 U/L1 8:46 PM [facility] EGKNmfrxcn671 (H)74 - 99 mg/dL11/28/2024 8:46 PM [facility] LABComment: The [place] Diabetes Association (ADA) provides guidance for cutoff values for fasting glucose andrandom glucose. The ADA defines fasting as no caloric intake for at least 8 hours. Fasting plasma glucose results between 100 to 125 mg/dL indicate increased risk for diabetes (prediabetes). Fasting plasma glucose results greater than or equal to 126 mg/dL meet the criteria for diagnosis of diabetes. In the absence of unequivocal hyperglycemia, results should be confirmed by repeat testing. In a patient with classic symptoms of hyperglycemia or hyperglycemic crisis, random plasma glucose results greater than or equal to 200 mg/dL meet the criteria for diagnosis of diabetes. Reference: Standards of Medical Care in Diabetes 2016, [place] [employer] Association. Diabetes Care. 2016.39(Suppl 1). BUN87 - 21 mg/dL11/28/2024 8:46 PM [facility] MA[facility] LABCreatinine0.67(L) 0.73 - 1.22 mg/dL11/28/2024 8:46 PM [facility] GOUZhgndu424(L)136 - 144 mmol/L1 8:46 PM [facility] LABPotassium4.63.7 - 5.1 mmol/L1 8:46 PM [facility] VDHXzhleaoy6651 - 107 mmol/L 11/28/2024 8:46 PM [facility] QRUBK39355 - 30 mmol/L1 8:46 PM [facility] LABAnion Ixs306 - 15 mmol/L1 8:46 PM [facility] MA[facility] LABEstimated Glomerular Filtration Ygvb130>=60 mL/min/1.73m 11/28/2024 8:46 PM [facility] LABComment:Estimated Glomerular Filtration Rate (eGFR) is calculated using the 2020 CKD-EPI creatinine equation. This equation utilizes serum creatinine, sex, and age as parameters. The creatinine assay has traceable calibration to isotope dilution-mass spectrometry. Refer to KDIGO guidelines for clinical interpretation. In patients with unstable renal function, e.g. those with acute kidney injury, the eGFRmay not accurately reflect actual GFR.Specimen (Source)Anatomical Location / LateralityCollection Method / VolumeCollection TimeReceived TimeBloodBLOOD SPECIMEN / UnknownVenipuncture / Fdzsxuf9111/28/2024 7:25 PM EDT1 7:33 PM EDT Narrative Authorizing ProviderResult TypeResult StatusElizabe Campos DEE-CLABORATORYFinal ResultPerforming OrganizationAddressCity/State/ZIP CodePhone Number [facility] [address] * (ABNORMAL) COMPLETE BLOOD COUNT AND DIFFERENTIAL (11/28/2024 7:25 PM EDT) ComponentValueRef RangeTest MethodAnalysis TimePerformed AtPathologist SignatureWBC7.983.70 - 11.00 k/uL11/28/2024 7:54 PM EDTCTUSCARAWAS HOSPITAL MAIN LABRBC4.08(L)4.20 - 6.00 m/uL11/28/2024 7:54 PM EDTHE [facility] Akookarnsa56.313.0 - 17.0 g/dL11/28/2024 7:54 PM EDTHE [facility] Ashhhvffnu77.2(L)39.0 - 51.0 %11/28/2024 7:54 PM EDTHE [facility] MCV93.680.0 - 100.0 fL11/28/2024 7:54 PM EDTHE [facility] BRLABY58.6 26.0 - 34.0 pg11/28/2024 7:54 PM EDTCTUSCARAWAS [facility] MAIN XIQOJPO39.830.5 - 36.0 g/dL11/28/2024 7:54 PM EDTHE [facility] MAIN LABRDW-CV12.311.5 - 15.0 %11/28/2024 7:54 PM EDTHE [facility] MAIN LABPlatelet Tuosa684(H)150 - 400 k/uL11/28/2024 7:54 PM EDTHE [facility] MAIN LABMPV8.8(L)9.0 - 12.7 fL 11/28/2024 7:54 PM EDTCTUSCARAW[facility] MAIN LABNeutrophils %66.1%11/28/2024 7:54 PM EDTCLEVELAND CLINIC MAIN LABAbs Neut5.281.45 - 7.50 k/uL11/28/2024 7:54 PM EDTCO[facility] MAIN LABLymphocytes %27.3%11/28/2024 7:54 PM EDT [facility] LABAbs Lymph2.181.00 - 4.00 k/uL11/28/2024 7:54 PM EDT [facility] LABMonocytes %5.8%11/28/2024 7:54 PM EDTCO[facility]IN LABAbs Mono0.46<0.87 k/uL11/28/2024 7:54 PM EDTCO[facility] LAB Eosinophils %0.1%11/28/2024 7:54 PM EDTCO[facility] MAIN LABAbs Eosin<0.03 <0.46 k/uL11/28/2024 7:54 PM EDTCPROM[facility] MAIN LABBasophils %0.4% 11/28/2024 7:54 PM EDTCO[facility] MAIN LABAbs Baso0.03<0.11 k/uL 11/28/2024 7:54 PM EDTCO[facility] MAIN LABImmature Granulocytes %0.3% 11/28/2024 7:54 PM EDTCO[facility] MAIN LABAbs Immature Gran<0.03<0.10 k/uL11/28/2024 7:54 PM EDTCO[facility] MAIN LABNRBC0.0/100 WBC11/28/2024 7:54 PM EDTCPROM[facility] MAIN LABAbsolute nRBC<0.01<0.01 k/uL11/28/2024 7:54 PM EDTCO[facility] MAIN LABDiff QqweRgvn81/20/2025 7:54 PM EDT [facility] LABSpecimen (Source)Anatomical Location / Laterality Collection Method / VolumeCollection TimeReceived TimeBloodBLOOD SPECIMEN / UnknownVenipuncture / Iggzaet7311/28/2024 7:25 PM EDT1 7:33 PM EDT Narrative Authorizing ProviderResult TypeResult StatusElizabedali DEE-CLABORATORYFinal ResultPerforming OrganizationAddressCity/State/ZIP CodePhone Number [facility] [address] [place] [address], [place] * HCG, QUALITATIVE, URINE (11/28/2024 3:02 PM EDT)ComponentValueRef RangeTest MethodAnalysis TimePerformed AtPathologist SignatureHCG Qualitative, AuhidNlqmgpbyMaqngoen22/20/2025 3:54 PM EDTCTUSCARAWAS HOSPITAL MAIN LABComment: This test is intended to aid in the early detection of . Very dilute urine samples, as indicated by a low specific gravity, may not contain marketing sales representative levels of hCG. This test detects intact hCG only. This test does not reliably detect hCG degradation products, including free-beta subunit and beta-core fragment. Therefore, this test may show reduced reactivity in urine after 8 weeks gestation. A number of conditions other than , including trophoblastic disease and certain non-trophoblastic neoplasms cause elevated levels of hCG. As with any assay employing mouse antibodies, the possibility exists for interference by human anti-mouse antibodies (HAMA) in the specimen. The test provides a presumptive diagnosis for .Specimen (Source)Anatomical Location / LateralityCollection Method / VolumeCollection TimeReceived TimeUrineURINE SPECIMEN / UnknownNon Blood / Mosbefv0711/28/2024 3:02 PM EDT1 3:12 PM EDT Narrative Authorizing ProviderResult TypeResult StatusElizabeth Campos DEE-CLABORATORYFinal ResultPerforming OrganizationAddressCity/State/ZIP CodePhone Number [facility] [address] [place] [address], [place] * (ABNORMAL) TOXICOLOGY SCREEN, ROUTINE URINE (11/28/2024 3:02 PM EDT)Component ValueRef RangeTest MethodAnalysis TimePerformed AtPathologist Signature Amphetamines, KnhxgRvanebhwBydbvoer34/20/2025 4:55 PM EDTCTUSCARAWAS HOSPITAL MAIN LABComment:Cutoff threshold at 1000 ng/mL.Barbiturates, UrineNegativeNegative 11/28/2024 4:55 PM EDTCTUSCARAWAS HOSPITAL MAIN LABComment:Cutoff threshold at 200 ng/mL.Benzodiazepines, WlazzYkydzgfpOijnbnib94/20/2025 4:55 PM EDTCTUSCARAWAS HOSPITAL MAIN LABComment:Cutoff threshold at 200 ng/mL.Cannabinoids, Urine Preliminary positive(A)Ssysnryi74/20/2025 4:55 PM EDTCT[facility]CARAW[facility] LAB Comment:Cutoff threshold at 50 ng/mL.Cocaine, RryrpXyhjikftJjixftyn16/20/2025 4:55 PM EDTHE [facility] MAIN LABComment:Cutoff threshold at 300 ng/mL. Ethanol, Urine<11<11 mg/dL11/28/2024 4:55 PM EDTHE [facility] Fentanyl, QmjxfLtpygllnFjrlelfz04/20/2025 4:55 PM EDTHE [facility] Comment:Cutoff threshold at 5 ng/mL.Opiates, YwxlgZymzkfxdWrcdnscz46/20/2025 4:55 PM EDTCTUSCARAWAS [facility]OSP[facility] MAIN LABComment:Cutoff threshold at 300 ng/mL. Oxycodone, ExkmqCnertivyGssfigku08/20/2025 4:55 PM EDTHE [facility] MAIN LABComment:Cutoff threshold at 100 ng/mL.Phencyclidine, UrineNegativeNegative 11/28/2024 4:55 PM EDTHE [facility] MAIN LABComment:Cutoff threshold at 25 ng/mL.Specimen (Source)Anatomical Location / LateralityCollection Method / VolumeCollection TimeReceived TimeUrineURINE SPECIMEN / UnknownNon Blood / Fcpxokq2611/28/2024 3:02 PM EDT1 3:11 PM EDT Narrative [facility] - 11/28/2024 4:55 PM EDT Immunoassay screen only. Cross reactivity with other substances can occur with immunoassay screening. Detection of any drug(s) in this urine toxicology panel is presumptive only. These tests are for medical purposes only and should not be used for compliance monitoring, legal, or forensic use. Samples should be within normal physiological conditions (e.g. pH). This assay does not include adulteration/specimen validity testing. In clinical settings, confirmatory testing is at the practitioner's discretion [1]. ??If clinicallyindicated, confirmation by high specificity, quantitative methodology, which includes adulteration/specimen validity testing, may be requested on the same specimen through Client Services ([phone]) if contacted within 48 hours of initial testing. [1]Substance Abuse and Mental Health Services Administration (2012). Clinical Drug Testing in Primary Care Technical Assistance Publication Series 32. Department of Health and Human Services, [place], p.10. Authorizing ProviderResult TypeResult StatusElizabeth Campos DEE-CLABORATORYFinal ResultPerforming OrganizationAddressCity/State/ZIP CodePhone Number [facility] [address] [place] [phone], documented in this encounter Visit Diagnoses Diagnosis Focal epilepsy (HCC)- Primary Localization-related (focal) (partial) epilepsy and epileptic syndromes with simple partial seizures, without mention of intractable epilepsy Focal epilepsy (HCC) Localization-related (focal) (partial) epilepsy and epileptic syndromes with simple partial seizures, without mention of intractable epilepsy Anxiety Anxiety state, unspecified GERD (gastroesophageal reflux disease) Esophageal reflux PTSD (post-traumatic stress disorder) Posttraumatic stress disorder Adult ADHD Attention deficit disorder with hyperactivity Hyponatremia Hyposmolality and/or hyponatremia Interstitial cystitis Chronic interstitial cystitis * Assessment & Plan Note - Lesli Gasca PA-C - 12/01/2024 11:49 AM EDT Associated Problem(s): Focal epilepsy (HCC) ASSESSMENT: 43 yo RH nonbinary (female at , they/them) with history of focal epilepsy who presents for continued seizures multiple times per week despite up titration of medication. Current events of concern started around 3 years ago, however also had prior different events of passing out/LOCdating back to 19 yo. EEG in June 2023 captured one seizure characterized as arousal from sleep withtachycardia and feeling hot, EEG onset from left temporal region, and completed MRI Brain that was non-focal. They were started on Oxcarbazepine 450 mg BID, has since been increased to total of 1500 mg/day. Now being admitted for seizure burden assessment. Of note, patient expressed other medical concerns on admission including vision changes, episodes of right facial droop, ear ringing, and concern about possible thyroid dysfunction. PLAN: - Continuous VEEG for seizure monitoring - ASM plan: Home dose of Oxcarbazepine 600/900 mg continued thus far on admission Will discuss alternative ASMs with staff this AM - Seizure rescue plan: Midazolam 4 mg IV for seizure >3 minutes or 3 or more seizures in 8 hours(if NO IV access give Midazolam 5 mg intramuscular) - Seizure and fall precautions - Neurochecks and vitals Q4H - Continuous telemetry and pulse ox monitoring - Admission labs pending - DVT ppx: ICPs bilaterally, Lovenox 40 mg subcutaneously every 24 hours * Assessment & Plan Note - Lesli Gasca PA-C - 12/01/2024 11:48 AM EDT Associated Problem(s): Focal epilepsy (HCC) ASSESSMENT: 43 yo RH nonbinary (female at , they/them) with history of focal epilepsy who presents for continued seizures multiple times per week despite up titration of medication. Current events of concern started around 3 years ago, however also had prior different events of passing out/LOCdating back to 19 yo. EEG in June 2023 captured one seizure characterized as arousal from sleep withtachycardia and feeling hot, EEG onset from left temporal region, and completed MRI Brain that was non-focal. They were started on Oxcarbazepine 450 mg BID, has since been increased to total of 1500 mg/day. Now being admitted for seizure burden assessment. Of note, patient expressed other medical concerns on admission including vision changes, episodes of right facial droop, ear ringing, and concern about possible thyroid dysfunction. PLAN: - Continuous VEEG for seizure monitoring - ASM plan: Oxcarbazepine 600/900 mg 11/30 -> STOP this AM Lacosamide 100 mg BID started 11/30 - Seizure rescue plan: Midazolam 4 mg IV for seizure >3 minutes or 3 or more seizures in 8 hours(if NO IV access give Midazolam 5 mg intramuscular) - Seizure and fall precautions - Neurochecks and vitals Q4H - Continuous telemetry and pulse ox monitoring - DVT ppx: ICPs bilaterally, Lovenox 40 mg subcutaneously every 24 hours - Possible discharge later today * Assessment & Plan Note - Lesli Gasca PA-C - 12/01/2024 7:31 AM EDT Associated Problem(s): Anxiety - Continue home Buspar 5 mg BID * Assessment & Plan Note - Lesli Gasca PA-C - 12/01/2024 7:31 AM EDT Associated Problem(s): GERD (gastroesophageal reflux disease) - Home Omeprazole substituted with Pantoprazole based on pharmacy formulary * Assessment & Plan Note - Lesli Gasca PA-C - 12/01/2024 7:31 AM EDT Associated Problem(s): PTSD (post-traumatic stress disorder) - SW assessment during admission * Assessment & Plan Note - Lesli Gasca PA-C - 12/01/2024 7:31 AM EDT Associated Problem(s): Adult ADHD - Continue home Adderall ER 10 mg once daily - Do not carry home Guanfacine * Assessment & Plan Note - Lesli Gasca PA-C - 12/01/2024 7:31 AM EDT Associated Problem(s): Hyponatremia Na 134 on admission lab work, can be side effect of Oxcarbazepine Results reviewed with patient - Will NOT resume Oxcarbazepine at discharge * Assessment & Plan Note - Lesli Gasca PA-C - 12/01/2024 7:31 AM EDT Associated Problem(s): Interstitial cystitis History noted on admission Takes Mybetriq at home for OAB, substituted with Sanctura per formulary Reports dark urine, no other symptoms, lab work showed BUN and Cr WNL Continue to monitor symptoms * Assessment & Plan Note - Lesli Gasca PA-C - 2024 7:55 AM EDT Associated Problem(s): GERD (gastroesophageal reflux disease) - Home Omeprazole substituted with Pantoprazole based on pharmacy formulary * Assessment & Plan Note - Lesli Gasca PA-C - 2024 7:55 AM EDT Associated Problem(s): PTSD (post-traumatic stress disorder) - SW assessment during admission * Assessment & Plan Note - Lesli Gasca PA-C - 2024 7:55 AM EDT Associated Problem(s): Adult ADHD - Continue home Adderall ER 10 mg once daily - Do not carry home Guanfacine * Assessment & Plan Note - Lesli Gasca PA-C - 2024 7:55 AM EDT Associated Problem(s): Hyponatremia Na 134 on admission lab work, can be side effect of Oxcarbazepine Results reviewed with patient * Assessment & Plan Note - Lesli Gasca PA-C - 2024 7:55 AM EDT Associated Problem(s): Interstitial cystitis History noted on admission Takes Mybetriq at home for OAB, substituted with Sanctura per formulary Reports dark urine, no other symptoms, lab work showed BUN and Cr WNL Continue to monitor symptoms * Assessment & Plan Note - Lesli Gasca PA-C - 2024 7:55 AM EDT Associated Problem(s): Anxiety - Continue home Buspar 5 mg BID * Assessment & Plan Note - Erica Morrison MD - 11/29/2024 7:34 AM EDT Associated Problem(s): Focal epilepsy (HCC) ASSESSMENT: 43 yo RH nonbinary (female at , they/them) with PMH of NSTEMI (2022), POTS, asthma, goiter and thyroid concerns in , dysautonomia, migraines, osteoarthritis, Arden Danlos syndrome, MTHFR mutation, anxiety, depression, PTSD, and focal epilepsy who presents for continued seizures multiple times per week despite up titration of medication. Current events of concern startedaround 3 years ago, however also had prior different events of passing out/LOC dating back to 19 yo. EEG in June 2023 captured one seizure characterized as arousal from sleep with tachycardia and feeling hot, EEG onset from left temporal region, and completed MRI Brain that was non-focal. She was started on Oxcarbazepine 450 mg BID. She is being admitted for seizure burden assessment. Of note, patient expressed other medical concerns on admission including vision changes, episodes of right facial droop, ear ringing, and concern about possible thyroid dysfunction. PLAN: - Continuous VEEG for seizure monitoring - ASM plan: Oxcarbazepine 600/900 mg -> HOLD - Seizure rescue plan: Midazolam 4 mg IV for seizure >3 minutes or 3 or more seizures in 8 hours(if NO IV access give Midazolam 5 mg intramuscular) - Seizure and fall precautions - Neurochecks and vitals Q4H - Continuous telemetry and pulse ox monitoring - Admission labs pending - DVT ppx: ICPs bilaterally, Lovenox 40 mg subcutaneously every 24 hours * Assessment & Plan Note - Erica Morrison MD - 11/29/2024 7:34 AM EDT Associated Problem(s): Anxiety - Continue home Buspar 5 mg BID * Assessment & Plan Note - Erica Morrison MD - 11/29/2024 7:34 AM EDT Associated Problem(s): GERD (gastroesophageal reflux disease) - Home Omeprazole substituted with Pantoprazole based on pharmacy formulary * Assessment & Plan Note - Erica Morrison MD - 11/29/2024 7:34 AM EDT Associated Problem(s): PTSD (post-traumatic stress disorder) - SW assessment during admission * Assessment & Plan Note - Erica Morrison MD - 11/29/2024 7:34 AM EDT Associated Problem(s): Adult ADHD - Continue home Adderall ER 10 mg once daily - Do not carry home Guanfacine * Assessment & Plan Note - Erica Morrison MD - 11/29/2024 7:34 AM EDT Associated Problem(s): Hyponatremia Na 134 on admission lab work, can be side effect of Oxcarbazepine Results reviewed with patient * Assessment & Plan Note - Erica Morrison MD - 11/29/2024 7:34 AM EDT Associated Problem(s): Interstitial cystitis History noted on admission Takes Mybetriq at home for OAB, substituted with Sanctura per formulary Reports dark urine, no other symptoms, lab work showed BUN and Cr WNL Continue to monitor symptoms * Assessment & Plan Note - Erica Morrison MD - 11/28/2024 4:46 PM EDT Associated Problem(s): Focal epilepsy (HCC) ASSESSMENT: 43 yo RH nonbinary (female at , they/them) with PMH of NSTEMI (2022), POTS, asthma, goiter and thyroid concerns in , dysautonomia, migraines, osteoarthritis, Arden Danlos syndrome, MTHFR mutation, anxiety, depression, PTSD, and focal epilepsy who presents for continued seizures multiple times per week despite up titration of medication. Current events of concern startedaround 3 years ago, however also had prior different events of passing out/LOC dating back to 19 yo. EEG in June 2023 captured one seizure characterized as arousal from sleep with tachycardia and feeling hot, EEG onset from left temporal region, and completed MRI Brain that was non-focal. She was started on Oxcarbazepine 450 mg BID. She is being admitted for seizure burden assessment. Of note, patient expressed other medical concerns on admission including vision changes, episodes of right facial droop, ear ringing, and concern about possible thyroid dysfunction. PLAN: - Continuous VEEG for seizure monitoring - ASM plan: Continue Oxcarbazepine 600/900 mg - Seizure rescue plan: Midazolam 4 mg IV for seizure >3 minutes or 3 or more seizures in 8 hours(if NO IV access give Midazolam 5 mg intramuscular) - Seizure and fall precautions - Neurochecks and vitals Q4H - Continuous telemetry and pulse ox monitoring - Admission labs pending - DVT ppx: ICPs bilaterally, Lovenox 40 mg subcutaneously every 24 hours * Assessment & Plan Note - Erica Morrison MD - 11/28/2024 4:46 PM EDT Associated Problem(s): Anxiety - Continue home Buspar 5 mg BID * Assessment & Plan Note - Erica Morrison MD - 11/28/2024 4:46 PM EDT Associated Problem(s): GERD (gastroesophageal reflux disease) - Home Omeprazole substituted with Pantoprazole based on pharmacy formulary * Assessment & Plan Note - Erica Morrison MD - 11/28/2024 4:46 PM EDT Associated Problem(s): PTSD (post-traumatic stress disorder) - SW assessment during admission * Assessment & Plan Note - Erica Morrison MD - 11/28/2024 4:46 PM EDT Associated Problem(s): Adult ADHD - Continue home Adderall ER 10 mg once daily - Do not carry home Guanfacine documented in this encounter Admitting Diagnoses Diagnosis Focal epilepsy (HCC) Localization-related (focal) (partial) epilepsy and epileptic syndromes with simple partial seizures, without mention of intractable epilepsy documented in this encounter Administered Medications Medication OrderMAR ActionAction DateDoseRateSite acetaminophen 325-650 mg tab(s) (TYLENOL) 325-650 mg, ORAL, EVERY 4 HOURS NEEDED, Starting on 11/28/24 at 1133, Until 11/28/24 at 2137, Mild Pain (1-3) - Enteral, Moderate Pain (4-6) - Enteral, Severe Pain (>/=7) - Enteral, Give 325 mg for mild main (1-3), Fever Give 650 mg for moderate pain (4-6), severe pain (>/=7) Maximum acetaminophen dose in all forms combined = 4,000 mg/24 hrs, Patient/guardian may elect to receivethis medication for higher pain levels INSTEAD of the opioid, if preferred: Yes Given11/28/2024 7:55 PM [id number] mg acetaminophen 500-1,000 mg tab(s) (TYLENOL) 500-1,000 mg, ORAL, EVERY 6 HOURS NEEDED, Starting on 11/28/24 at 2137, Until Yessy 12/01/24 at 1819, Mild Pain (1-3) - Enteral, Moderate Pain (4-6) - Enteral, Severe Pain (>/=7) - Enteral, Give 325 mg for mild main (1-3), Fever Give 650 mg for moderate pain (4-6), severe pain (>/=7) Maximum acetaminophen dose in all forms combined = 4,000 mg/24 hrs, Patient/guardian may elect to receive this medication for higher pain levels INSTEAD of the opioid, if preferred: Yes Given12/01/2024 2:56 AM EDT1,000 ezZgkbr5111/29/2024 8:14 PM EDT1,000 mgGiven 11/29/2024 12:43 PM EDT1,000 mg amphetamine-dextroamphetamine XR 10 mg cap(s) (ADDERALL XR) 10 mg, ORAL, DAILY, First dose on Thu11/29/24 at 0900, Until Discontinued, Capsule can be opened, but contents should be swallowed whole; DO NOT crush or chew. Given12/01/2024 8:56 AM EDT10 zbRsfwx0411/30/2024 8:43 AM EDT10 itRexco7111/29/2024 9:06 AM EDT10 mg busPIRone 5 mg tab(s) (BUSPAR) 5 mg, ORAL, 2 TIMES DAILY, First dose on Thu11/28/24 at 2100, Until Discontinued Given12/01/2024 8:56 AM EDT5 rcNvuqm0511/30/2024 8:14 PM EDT5 rhVkgep3111/30/2024 8:43 AM EDT5 mg cetirizine 10 mg tab(s) (ZYRTEC) 10 mg, ORAL, DAILY, First dose on Thu11/29/24 at 0900, Until Discontinued, Pharmacist may modify dose per [facility] dose optimization consult agreement: Yes Given12/01/2024 8:57 AM EDT10 reLppib1811/30/2024 8:43 AM EDT10 saObsjr2111/29/2024 9:06 AM EDT10 mg clonazePAM 0.5 mg tab(s) (KlonoPIN) 0.5 mg, ORAL/FEEDING TUBE, ONCE, 1 dose, On Thu11/30/24 at 1300, Hazardous Potential Reproductive Risk Drug: Use appropriate PPE. Given2024 12:51 PM EDT0.5 mgOral enoxaparin 40 mg injection (LOVENOX) 40 mg, SUBCUTANEOUS, EVERY 24 HOURS, First dose on Thu11/29/24 at 0900, Until Discontinued Given12/01/2024 8:56 AM EDT40 mgAbdomen, JGAKhsos62/22/2025 8:43 AM EDT40 mg Abdomen, TVCUkhnc54/21/2025 9:06 AM EDT40 mgAbdomen, LLQ ibuprofen 600 mg tab(s) (MOTRIN) 600 mg, ORAL, EVERY 6 HOURS NEEDED, Starting on Thu11/28/24 at 2137, Until Thu12/01/24 at 1819, breakthrough pain, ADMINISTER WITH FOOD, Patient/guardian may elect to receive this medication forhigher pain levels INSTEAD of the opioid, if preferred: Yes Given12/01/2024 2:56 AM GSB265 wyZrvti1811/29/2024 3:27 PM [id number] mgGiven 11/28/2024 9:46 PM [id number] mg keTORolac 15 mg injection (Toradol) 15 mg, INTRAVENOUS, ONCE, 1 dose, On Thu11/29/24 at 2200, Ketorolac (Toradol) is indicated for theshort-term (up to 5 days) management of moderately severe acute pain. Continuation of ketorolac (Toradol) beyond 5 days increases the risk of developing serious adverse events. Please verify the duration of therapy for ketorolac (Toradol)., Pharmacist may modify dose per [facility] dose optimization consult agreement: Yes Given11/29/2024 10:05 PM EDT15 mg lacosamide 100 mg tab(s) (VIMPAT) 100 mg, ORAL/FEEDING TUBE, 2 TIMES DAILY, First dose (after last modification) on Thu11/30/24 at 1930, Until Discontinued Given12/01/2024 8:57 AM BRJ598 mgFeeding KxdwJpmle70/22/2025 8:13 PM LTR702 mg Oral lacosamide 200 mg injection (VIMPAT) 200 mg, INTRAVENOUS, ONCE, 1 dose, On Thu11/30/24 at 1130, Administer over 5 minutes. Given2024 11:28 AM [id number] mg levETIRAcetam 1,500 mg injection (KEPPRA) 1,500 mg, INTRAVENOUS, EVERY 5 MINUTES NEEDED, 3 doses, Starting on Thu11/28/24 at 1133, Until Thu12/01/24 at 1819, see admin instructions, Upon LIP instruction, use for continued seizure activity as 2nd line after benzodiazepine administration. Maximum 3 doses. Administer IV push over 2-5 minutes. melatonin 9 mg tab(s) 9 mg, ORAL, DAILY AT 8 PM, First dose on Thu11/28/24 at 2000, Until Discontinued Given11/28/2024 11:05 PM EDT9 mg midazolam (PF) 10 mg injection (VERSED) 10 mg, INTRAMUSCULAR, EVERY 24 HOURS NEEDED, Starting on Thu11/28/24 at 1133, Until Thu12/01/24 at 1819, Seizures, if no IV access, For seizure duration greater than or equal to 3 minutes or seizure frequency of 3 or more seizures per 8 hours. If seizure continues for 2 minutes after dose is given contact LIP. midazolam (PF) 4 mg injection (VERSED) 4 mg, INTRAVENOUS, EVERY 5 MINUTES NEEDED, Starting on Thu11/28/24 at 1133, Until Yessy 12/01/24 at 1819, See admin instructions, seizures, For seizure duration greater than or equal to 3 minutes or seizure frequency of 3 or more seizures per 8 hours. Notify staff physician with any seizure lasting more than 2 minutes beyond the first dose. Maximum of 2 doses per 6 hours. Given2024 4:08 AM EDT4 mg NaCl 0.9% 1,000 mL iv bolus 1,000 mL, INTRAVENOUS, at 999 mL/hr, Administer over 1 Hours, ONCE, 1 dose, On Thu11/29/24 at 2200 New Bag/Syringe/Jdlylj3911/29/2024 10:14 PM EDT1,000 mL999 mL/hr NaCl 0.9% iv flush bag 20 mL, INTRAVENOUS, NEEDED, Starting on Thu11/28/24 at 1133, Until Thu12/01/24 at 1819, See admin instructions, If no compatible primary is already running, infuse NaCl 0.9% as primary to flush tubing after non-chemotherapy, non-immunotherapy intermittent infusions. Administer at the same rateas intermittent infusion. Select the Flush Bag file on smart pump. ondansetron (PF) 4 mg injection (ZOFRAN) 4 mg, INTRAVENOUS, ONCE, 1 dose, On Thu11/29/24 at 2200, Give IV push over 2 minutes Given11/29/2024 10:05 PM EDT4 mg ondansetron 4 mg tab(s) (ZOFRAN) 4 mg, ORAL/FEEDING TUBE, EVERY 6 HOURS NEEDED, Starting on Thu11/30/24 at 1007, Until Thu12/01/24 at 1819, Nausea/Vomiting - First Line - Enteral OXcarbazepine 600 mg tab(s) (TRILEPTAL) 600 mg, ORAL, DAILY, First dose on Thu11/29/24 at 0900, Until Discontinued, Hazardous Potential Reproductive Risk Drug: Use appropriate PPE. Given2024 8:48 AM SPW710 mhJrqhr3511/29/2024 9:12 AM VHE665 mg OXcarbazepine 600 mg tab(s) (TRILEPTAL) 600 mg, ORAL/FEEDING TUBE, 2 TIMES DAILY, First dose on Thu12/01/24 at 1030, Until Discontinued, Hazardous Potential Reproductive Risk Drug: Use appropriate PPE. Given12/01/2024 10:40 AM [id number] mgOral OXcarbazepine 900 mg tab(s) (TRILEPTAL) 900 mg, ORAL, AT BEDTIME, First dose on Thu11/28/24 at 2100, Until Discontinued, Hazardous Potential Reproductive Risk Drug: Use appropriate PPE. Given11/29/2024 8:14 PM HIV236 knMhrtc1611/28/2024 7:55 PM CZE332 mg OXcarbazepine 900 mg tab(s) (TRILEPTAL) 900 mg, ORAL, AT BEDTIME, 1 dose, First dose (after last modification) on Thu11/30/24 at 2100, Hazardous Potential Reproductive Risk Drug: Use appropriate PPE. Given2024 8:14 PM [id number] 40 mg tab(s) (PROTONIX) 40 mg, ORAL, 2 TIMES DAILY BEFORE MEALS (0600/1600), First dose on Thu11/28/24 at 1600, Until Discontinued, Swallow whole; DO NOT crush or chew. Given12/01/2024 5:42 AM EDT40 tyVhvsv9611/30/2024 5:04 PM EDT40 dlSdpoc1411/30/2024 8:43 AM EDT40 mg trospium 20 mg tab(s) (SANCTURA) 20 mg, ORAL, 2 TIMES DAILY BEFORE MEALS, First dose on Thu11/28/24 at 1600, Until Discontinued, mirabegron tab(s) (MYRBETRIQ) substituted to trospium IR tab(s) (SANCTURA) per Pharmacy & Therapeutics Committee Given12/01/2024 5:42 AM EDT20 loLjtig1011/30/2024 5:04 PM EDT20 viPiypf3611/30/2024 8:44 AM EDT20 mgdocumented in this encounter Active and Recently Administered Medications Times are shown in EDT.Medication Order amphetamine-dextroamphetamine XR 10 mg cap(s) (ADDERALL XR) 10 mg, ORAL, DAILY, First dose on Thu11/29/24 at 0900, Until Discontinued, Capsule can be opened, but contents should be swallowed whole; DO NOT crush or chew. * 0906 (Given - Provider: Austin Briceno RN) * 0843 (Given - Provider: Austin Briceno RN) * 0856 (Given - Provider: Kimberlee Mann, ANSELMO) busPIRone 5 mg tab(s) (BUSPAR) 5 mg, ORAL, 2 TIMES DAILY, First dose on Thu11/28/24 at 2100, Until Discontinued * 0906 (Given - Provider: Austin Briceno RN) * 2014 (Given - Provider: Shannan Tolbert, ANSELMO) * 0843 (Given - Provider: Austin Briceno RN) * 2013 (Given - Provider: Shannan Tolbert, RN) * 0856 (Given - Provider: Kimberlee Mann, RN) cetirizine 10 mg tab(s) (ZYRTEC) 10 mg, ORAL, DAILY, First dose on Thu11/29/24 at 0900, Until Discontinued, Pharmacist may modify dose per [facility] dose optimization consult agreement: Yes * 0906 (Given - Provider: Austin Briceno RN) * 0843 (Given - Provider: Austin Briceno RN) * 0857 (Given - Provider: Kimberlee Mann RN) clonazePAM 0.5 mg tab(s) (KlonoPIN) (COMPLETED) 0.5 mg, ORAL/FEEDING TUBE, ONCE, 1 dose, On Thu11/30/24 at 1300, Hazardous Potential Reproductive Risk Drug: Use appropriate PPE. * 1251 (Given - Provider: Austin Briceno RN) enoxaparin 40 mg injection (LOVENOX) 40 mg, SUBCUTANEOUS, EVERY 24 HOURS, First dose on Thu11/29/24 at 0900, Until Discontinued * 0906 (Given - Provider: Austin Briceno RN) * 0843 (Given - Provider: Austin Briceno RN) * 0856 (Given - Provider: Kimberlee Mann RN) keTORolac 15 mg injection (Toradol) (COMPLETED) 15 mg, INTRAVENOUS, ONCE, 1 dose, On Thu11/29/24 at 2200, Ketorolac (Toradol) is indicated for theshort-term (up to 5 days) management of moderately severe acute pain. Continuation of ketorolac (Toradol) beyond 5 days increases the risk of developing serious adverse events. Please verify the duration of therapy for ketorolac (Toradol)., Pharmacist may modify dose per [facility] dose optimization consult agreement: Yes * 2204 (Given - Provider: Shannan Tolbert RN) lacosamide 100 mg tab(s) (VIMPAT) 100 mg, ORAL/FEEDING TUBE, 2 TIMES DAILY, First dose (after last modification) on Thu11/30/24 at 1930, Until Discontinued * 2012 (Given - Provider: Shannan Tolbert RN) * 0857 (Given - Provider: Kimberlee Mann, ANSELMO) lacosamide 200 mg injection (VIMPAT) (COMPLETED) 200 mg, INTRAVENOUS, ONCE, 1 dose, On Thu11/30/24 at 1130, Administer over 5 minutes. * 1128 (Given - Provider: Austin Briceno RN) melatonin 9 mg tab(s) 9 mg, ORAL, DAILY AT 8 PM, First dose on Thu11/28/24 at 2000, Until Discontinued * 2300 (Not Given - Provider: Shannan Tolbert RN - Reason: Patient Declined. LIP Notified) * 2012 (Not Given - Provider: Shannan Tolbert RN - Reason: Patient Declined. LIP Notified) NaCl 0.9% 1,000 mL iv bolus (COMPLETED) 1,000 mL, INTRAVENOUS, at 999 mL/hr, Administer over 1 Hours, ONCE, 1 dose, On Thu11/29/24 at 2200 * 2214 (New Bag/Syringe/Bottle - Provider: Shannan Tolbert, ANSELMO) * 2314 (Infusion Complete - Provider: Shannan Tolbert, RN) ondansetron (PF) 4 mg injection (ZOFRAN) (COMPLETED) 4 mg, INTRAVENOUS, ONCE, 1 dose, On Thu11/29/24 at 2200, Give IV push over 2 minutes * 2204 (Given - Provider: Shannan Tolbert, ANSELMO) OXcarbazepine 600 mg tab(s) (TRILEPTAL) (CANCELED) 600 mg, ORAL, DAILY, First dose on Thu11/29/24 at 0900, Until Discontinued, Hazardous Potential Reproductive Risk Drug: Use appropriate PPE. * 0912 (Given - Provider: Austin Briceno RN) * 0848 (Given - Provider: Austin Briceno RN) OXcarbazepine 600 mg tab(s) (TRILEPTAL) 600 mg, ORAL/FEEDING TUBE, 2 TIMES DAILY, First dose on Thu12/01/24 at 1030, Until Discontinued, Hazardous Potential Reproductive Risk Drug: Use appropriate PPE. * 1040 (Given - Provider: Kimberlee Mann RN) OXcarbazepine 900 mg tab(s) (TRILEPTAL) (CANCELED) 900 mg, ORAL, AT BEDTIME, First dose on Thu11/28/24 at 2100, Until Discontinued, Hazardous Potential Reproductive Risk Drug: Use appropriate PPE. * 2013 (Given - Provider: Shannan Tolbert RN) OXcarbazepine 900 mg tab(s) (TRILEPTAL) (COMPLETED)(Linked Group 1) 900 mg, ORAL, AT BEDTIME, 1 dose, First dose (after last modification) on Thu11/30/24 at 2100, Hazardous Potential Reproductive Risk Drug: Use appropriate PPE. * 2013 (Given - Provider: Shannan Tolbert, ANSELMO) pantoprazole DR 40 mg tab(s) (PROTONIX) 40 mg, ORAL, 2 TIMES DAILY BEFORE MEALS (0600/1600), First dose on Thu11/28/24 at 1600, Until Discontinued, Swallow whole; DO NOT crush or chew. * 0603 (Given - Provider: Betty Lomax RN) * 1655 (Given - Provider: Austin Briceno RN) * 0843 (Given - Provider: Austin Briceno RN) * 1704 (Given - Provider: Austin Briceno RN) * 0542 (Given - Provider: Shannan Tolbert, ANSELMO) * 1600 (Not Given - Provider: Jessica Garcia, RN - Reason: Patient Declined. LIP Notified - Comment: pt state she prefers to take when she gets home.) trospium 20 mg tab(s) (SANCTURA) 20 mg, ORAL, 2 TIMES DAILY BEFORE MEALS, First dose on Thu11/28/24 at 1600, Until Discontinued, mirabegron tab(s) (MYRBETRIQ) substituted to trospium IR tab(s) (SANCTURA) per Pharmacy & Therapeutics Committee * 0603 (Given - Provider: Betty Lomax RN) * 1655 (Given - Provider: Austin Briceno RN) * 0844 (Given - Provider: Austin Briceno RN) * 1704 (Given - Provider: Austin Briceno RN) * 0542 (Given - Provider: Shannan Tolbert, ANSELMO) * 1600 (Not Given - Provider: Jessica Garcia RN - Reason: Patient Declined. LIP Notified - Comment: pt state she prefers to take when she gets home.) Medication Order// acetaminophen 500-1,000 mg tab(s) (TYLENOL) 500-1,000 mg, ORAL, EVERY 6 HOURS NEEDED, Starting on Thu11/28/24 at 2137, Until Yessy 12/01/24 at 1819, Mild Pain (1-3) - Enteral, Moderate Pain (4-6) - Enteral, Severe Pain (>/=7) - Enteral, Give 325 mg for mild main (1-3), Fever Give 650 mg for moderate pain (4-6), severe pain (>/=7) Maximum acetaminophen dose in all forms combined = 4,000 mg/24 hrs, Patient/guardian may elect to receive this medication for higher pain levels INSTEAD of the opioid, if preferred: Yes * 1243 (Given - Provider: Amy Ellison RN) * 2013 (Given - Provider: Shannan Tolbert RN) * 0256 (Given - Provider: Shannan Tolbert, ANSELMO) ibuprofen 600 mg tab(s) (MOTRIN) 600 mg, ORAL, EVERY 6 HOURS NEEDED, Starting on Thu11/28/24 at 2137, Until Yessy 12/01/24 at 1819, breakthrough pain, ADMINISTER WITH FOOD, Patient/guardian may elect to receive this medication forhigher pain levels INSTEAD of the opioid, if preferred: Yes * 1527 (Given - Provider: Austin Briceno RN) * 0256 (Given - Provider: Shannan Tolbert, ANSELMO) levETIRAcetam 1,500 mg injection (KEPPRA) 1,500 mg, INTRAVENOUS, EVERY 5 MINUTES NEEDED, 3 doses, Starting on Thu11/28/24 at 1133, Until Yessy 12/01/24 at 1819, see admin instructions, Upon LIP instruction, use for continued seizure activity as 2nd line after benzodiazepine administration. Maximum 3 doses. Administer IV push over 2-5 minutes. midazolam (PF) 10 mg injection (VERSED) 10 mg, INTRAMUSCULAR, EVERY 24 HOURS NEEDED, Starting on Thu11/28/24 at 1133, Until Yessy 12/01/24 at 1819, Seizures, if no IV access, For seizure duration greater than or equal to 3 minutes or seizure frequency of 3 or more seizures per 8 hours. If seizure continues for 2 minutes after dose is given contact LIP. midazolam (PF) 4 mg injection (VERSED) 4 mg, INTRAVENOUS, EVERY 5 MINUTES NEEDED, Starting on Thu11/28/24 at 1133, Until Yessy 12/01/24 at 1819, See admin instructions, seizures, For seizure duration greater than or equal to 3 minutes or seizure frequency of 3 or more seizures per 8 hours. Notify staff physician with any seizure lasting more than 2 minutes beyond the first dose. Maximum of 2 doses per 6 hours. * 0408 (Given - Provider: Shannan Tolbert RN) NaCl 0.9% iv flush bag 20 mL, INTRAVENOUS, NEEDED, Starting on Thu11/28/24 at 1133, Until Yessy 12/01/24 at 1819, See admin instructions, If no compatible primary is already running, infuse NaCl 0.9% as primary to flush tubing after non-chemotherapy, non-immunotherapy intermittent infusions. Administer at the same rateas intermittent infusion. Select the Flush Bag file on smart pump. ondansetron 4 mg tab(s) (ZOFRAN) 4 mg, ORAL/FEEDING TUBE, EVERY 6 HOURS NEEDED, Starting on Thu11/30/24 at 1007, Until Thu12/01/24 at 1819, Nausea/Vomiting - First Line - Enteral tiZANidine 8 mg tab(s) (ZANAFLEX) 8 mg, ORAL, 2 TIMES DAILY NEEDED, Starting on Thu11/28/24 at 1219, Until Thu12/01/24 at 1819, Muscle Spasm - First Line - Enteral Order Group 1: OXcarbazepine 900 mg tab(s) (TRILEPTAL) (COMPLETED)Jump to med 900 mg, ORAL, AT BEDTIME, 1 dose, First dose (after last modification) on Thu11/30/24 at 2100, Hazardous Potential Reproductive Risk Drug: Use appropriate PPE. documented in this encounter
--- OUTSIDE RECORDS SUMMARY | 2024-12-01 23:43 | XMS_ITS | Encounter Summary ---
Author Organization [facility] tem Address [id number] [address] [place] [address] Care Team Providers Care Scrap Handler Name Role Phone Margie Jajaisabel Yepez APRN-CUSTOMS AND BORDER PROTECTION INSPECTOR Primary Care Provider + Reason for Referral * Vascular (Emergency) - AuthorizedSpecialtyDiagnoses / ProceduresReferred By ContactReferred To Contact Diagnoses Chest pain, unspecified type Procedures Vas venous duplex upr single right Liza Hernandez MD [address] [place] [address] Phone: tel: fax: Referral IDStatusReasonStart DateExpiration DateVisits RequestedVisits [id number]/24/202510/24/202611 Reason for Visit * ReasonCommentsAbdominal Pain Encounter Details DateTypeDepartmentCare Team (Latest Contact Info)Bqraonutkbb66/23/2025 11:43 PM EDT - 12/02/2024 4:05 AM EDTEmergency [facility] [address] [place] [address] Liza Hernandez MD [address] [place] [address] Chest pain, unspecified type (Primary Dx) Discharge Disposition: Home Social History Tobacco UseTypesPacks/DayYears UsedDateSmoking Tobacco: NeverSmokeless Tobacco: NeverAlcohol UseStandard Drinks/WeekCommentsNot Currently0 (1 standard drink = 0.6 oz pure alcohol)ChildcareAnswerDate MehhtygtGqtmhwghmCamvksn81/04/2019 EmploymentAnswerDate YdxnucilZpljlbsbvdHrjxzoo32/04/2019Hunger ScreeningAnswer Date RecordedWithin the past 12 months we worried whether our food would run out before we got money to buy more.Never True12/01/2024Within the past 12 months the food we bought just didn't last and we didn't have money to get more.Never True12/01/2024Purpose - LifeAnswerDate RecordedPurpose and direction in life Suclzmq62/13/2021CommentsNoSex and Gender InformationValueDate Recorded Sex Assigned at IjrtsVoutje08/22/2023 12:54 PM EDTLegal SjjLoqzse00/06/2015 11:32 AM EDTGender IdentityNON-GJAAPP0912/25/2021 12:52 PM ESTSexual Orientation Choose not to whrjdqua32/22/2023 10:50 AM EDTdocumented as of this encounter Last Filed Vital Signs Vital SignReadingTime TakenCommentsBlood Plfgogei839/8412/02/2024 3:15 AM EDT Fwygu2814/24/2025 3:15 AM RGZKrsnwzusdfr03.9 ??C (98.5 ??F)12/01/2024 11:46 PM EDTRespiratory Ectm083412/02/2024 3:15 AM EDTOxygen Mftpqynkfq48%12/02/2024 3:15 AM EDTInhaled Oxygen Concentration--Jbidjs38.8 kg (145 lb)12/01/2024 11:46 PM TTHBairhc374.6 cm (5' 4 )12/01/2024 11:46 PM EDTBody Mass Index24.8912/01/2024 11:46 PM EDTdocumented in this encounter Discharge Instructions * Discharge Instructions* Liza Hernandez MD - 12/02/2024 3:59 AM EDT You were seen here for chest pain and back pain. CT imaging was done to evaluate for blood clot as well as aortic dissection. Your imaging was negative for a blood clot as well as aortic dissection. You were cardiac workup was also unremarkable. Unfortunately, during the imaging study the catheter in your right arm broke and there is potential that a foreign body was left in your arm. If you are able to feel the foreign body once a swelling goes down, you were given the information for a vascular surgeon which is the same when we spoke to louann Perkins. You can call her office andschedule an appointment for evaluation if you are able to feel the foreign body. The imaging done was not able to see a foreign body. It is recommended that you get a repeat ultrasound or CT scan done of your right upper extremity in 48 hours once the contrast dissipates as at that time, they may be able to see a foreign body. Right now the contrast is obstructing view of the area. I did order you an outpatient ultrasound done of your right upper extremity to be obtained in 48 hours to evaluatefor foreign body. You can get this ultrasound done and then follow up with vascular surgery with the results if a foreign body is able to be identified. You need to call and schedule follow-up appointment with the primary care provider for a soon as possible. Return to the emergency department immediately if you experience worsening symptoms including but not limited to chest pain, shortness of breath, worsening swelling to the arm, decreased sensation tothe arm, discoloration to the arm, fevers, or if you develop any other symptoms or have any other concerns. documented in this encounter Medications at Time of Discharge MedicationSigDispense QuantityRefillsLast FilledStart DateEnd Date albuterol (PROVENTIL HFA;VENTOLIN HFA) 90 mcg/actuation inhaler Indications:History of asthmaInhale 2 puffs every 6 (six) hours as needed for wheezing. 18 g amphetamine-dextroamphetamine XR (ADDERALL XR) 30 mg 24 hr capsule Take 1 capsule (30 mg total) by mouth every morning. busPIRone (BUSPAR) 5 mg tablet Take 1 tablet (5 mg total) by mouth in the morning and 1 tablet (5 mg total) before bedtime. calcium glycerophosphate (PRELIEF ORAL) Take by mouth in the morning. guanfacine HCl (GUANFACINE ORAL) Take by mouth. lacosamide (VIMPAT) 100 mg tablet Take 1 tablet (100 mg total) by mouth in the morning and 1 tablet (100 mg total) before bedtime. LINZESS 145 mcg capsule Take 1 capsule (145 mcg total) by mouth every morning before breakfast. 08/30/2024 LORATADINE ORAL Take by mouth in the morning. MELATONIN ORAL Take by mouth nightly. MYRBETRIQ 50 mg tablet extended release 24 hr TAKE 1 TABLET(50 MG) BY MOUTH IN THE MORNING 90 tablet NON FORMULARY Medical iplltxdlx97/06/2020 omeprazole (PriLOSEC) 40 mg capsule Take 1 capsule (40 mg total) by mouth every morning before breakfast. oxcarbazepine (TRILEPTAL ORAL) Take 600 mg by mouth in the morning and 600 mg before bedtime. tiZANidine (ZANAFLEX) 4 mg tablet Take 1 tablet (4 mg total) by mouth 2 (two) times a day as needed for muscle spasms. 60 tablet 2documented as of this encounter ED Notes * Cely Mendez RN - 12/02/2024 2:53 AM EDT 0120 selling underwriter advised by medical transcription radiology that IV to R AC infiltrated while in exam. Haulage Boss to bedside,appreciates area of swelling to IV site. Haulage Boss removed tegaderm et when extracting IV, hub breaks off from cathlon while cathlon remains in arm. Haulage Boss immediately attempt to remove cathlon but is imbedded in skin. Pressure applied to site, call for MD to bedside. Dr Hernandez prompt to bedside, attempt to palpate, then visualize c bedside ultrasound but unable to verify cathlon placement. Reassurances provided to tearful patient, being monitored on office services manager et vital signs. Coban wrap et ice pack to area of contrast infiltration. Bedside xray performed, physician does not see foreign bodyin image. Physician speaks c vascular surgery parts counter salesperson c TTH, CT without contrast ordered. When pt return from CT ambulates to bathroom. Hyaluroidase admin per selling underwriter c second RN Deandra at bedside to assist c admin. Pt AO x4 c minimal complaints of discomfort to infiltration site. Coban wrap et ice to s ite. Physician reports plan to reassess once swelling to site has decreased to attempt to visualizefor foreign body. * Liza Hernandez MD - 12/02/2024 12:41 AM EDT Images from the original note were not included. [facility] - EMERGENCY Pt Name: Ida Jacome Birthdate: 1980 Chief Complaint: Chief Complaint Patient presents with Abdominal Pain History of Present Illness: 44-year-old female, presents to the emergency department due to left-sided lower chest pain, epigastric abdominal pain, back pain. Patient stated that her symptoms started tonight around 4:00 p[address] when she was driving home from the hospital. Patient stated that she was recently admitted to [facility] for management of her epilepsy. Patient stated that she had some medications for her seizures adjusted. Patient stated that she was admitted for 3 days and was receiving subcutaneous Lovenox injections. Patient denies fever, vomiting, nausea, shortness of breath. Patient states that she hada normal bowel movement prior to her hospitalization without blood or black tarry stool. Patient denies taking anything tonight for her pain. 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[facility] Anginal pain Ankle fracture broke 3 bones in my left ankle Ankle pain Asthma Back pain Bipolar disorder ([facility] Carpal tunnel syndrome Cervical cancer ([facility]) Charcot's joint Chest pain Chronic constipation Chronic musculoskeletal pain Depression Dysautonomia ([facility]) Eczema EDS (Arden-Danlos syndrome) Endometritis Epilepsy ([facility]) 06/2023 Zoey Schmid infection Heart attack ([facility]) 06/2022 Hip dysplasia Migraine headache MTHFR mutation Myocardial infarction ([facility]) Osteoarthritis Palpitations Pleurisy POTS (postural orthostatic tachycardia syndrome) Prolonged emergence from general anesthesia PTSD (post-traumatic stress disorder) Sinus tachycardia Syncope Syncope Past Surgical History: Past Surgical History: Procedure Laterality Date ABLATION RADIOFREQUENCY SPINAL: right L 4/5 5/1 rfa Right 05/18/2020 Performed by Bruce Coburn MD at [facility] ANKLE FRACTURE SURGERY Left BREAST EXCISIONAL BIOPSY Right 2003 BENIGN BREAST SURGERY 11/2015 CARPAL TUNNEL RELEASE SECTION lumpectomy Coronary angiogram only N/A 04/30/2022 Performed by Yadiel Raygoza MD at [facility] CARDIAC CATH LABS CYST REMOVAL CYSTOSCOPY CYSTOSCOPY N/A 02/22/2019 Performed by Richar Henderson MD at [facility] CYSTOSCOPY WITH [facility] BLADDER SOLUTION N/A 11/25/2022 Performed by Richar Henderson MD at [facility] EGD N/A 08/18/2019 Performed by Austin Smtyh DO at [facility] HIP SURGERY HYSTERECTOMY 2008 INJECTION BLOCK NERVE MEDIAL BRANCH: bilat C 6/7, 7/1 Bilateral 12/19/2022 Performed by Bruce Coburn MD at [facility] INJECTION BLOCK SACROILIAC JOINT Bilateral 10/31/2022 Performed by Bruce Coburn MD at [facility] LUMBAR SYMPATHETIC BLOCK: left Left 06/08/2017 Performed by Bruce Coburn MD at [facility] INJECTION LUMBAR SYMPATHETIC BLOCK: left lumb sympathetic plexus blk Left 07/17/2017 Performed by Bruce Coburn MD at [facility] INJECTION MEDIAL BRANCH NERVE BLOCK Bilateral C 6/7, 7/1 Bilateral 03/25/2019 Performed by Bruce Coburn MD at [facility] INJECTION MEDIAL BRANCH NERVE BLOCK Bilateral C 6/7,7/1 Bilateral 07/15/2019 Performed by Bruce Coburn MD at [facility] INJECTION MEDIAL BRANCH NERVE BLOCK L4/5,5/S1 Bilateral 06/20/2016 Performed by Bruce Coburn MD at [facility] INJECTION MEDIAL BRANCH NERVE BLOCK Left L4/5, 5/1 x 1 Left 12/17/2018 Performed by Bruce Coburn MD at [facility] INJECTION SI JOINT Left SI Joint Left 01/24/2019 Performed by Bruce Coburn MD at [facility] OOPHORECTOMY Right RADIO FREQUENCY ABLATION LEft L 4/5,5/1 Left 02/18/2019 Performed by Bruce Coburn MD at [facility] RADIO FREQUENCY ABLATION Right L4/5, 5/1 Right 11/19/2018 Performed by Bruce Coburn MD at [facility] RADIOFREQUENCY ABLATION SPINAL: R then L L45 51 RFA Right 08/01/2016 Performed by Bruce Coburn MD at [facility] TONSILLECTOMY Family History: Family History Problem Relation Age of Onset Heart disease Mother Diabetes Mother Coronary artery disease Father Cancer Paternal Grandmother Breast cancer Neg Hx Social History: Social History Socioeconomic History Marital status: Single Tobacco Use Smoking status: Never Smokeless tobacco: Never Vaping Use Vaping status: Former Quit date: 11/06/2020 Substances: THC Substance and Sexual Activity Alcohol use: Not Currently Drug use: Yes Types: Marijuana, Medical Marijuana Sexual activity: Not Currently Other Topics Concern Caffeine Use Yes Social Drivers of Health Food Insecurity: No Food Insecurity (12/01/2024) Hunger Screening Food Insecurity - Worry: Never True Food Insecurity - Inability: Never True Transportation Needs: No Transportation Needs (11/29/2024) Received from [facility] Transportation In the past 12 months, has lack of transportation kept you from medical appointments or from getting medications?: No In the past 12 months, has lack of transportation kept you from meetings, work, or from getting things needed for daily living?: No Interpersonal Safety: Unknown (04/02/2023) Received from [facility] [place] Safety & Environment Fear of Current or Ex-Partner: Not on file Emotionally Abused: Not on file Physically Abused: Not on file Sexually Abused: Not on file Physically or Sexually Abused: Not on file Housing Instability: Low Risk (11/29/2024) Received from [facility] Housing Stability Vital Sign In the last 12 months, was there a time when you were not able to pay the mortgage or rent on time?: No In the past 12 months, how many times have you moved where you were living?: 0 At any time in the past 12 months, were you homeless or living in a residential (including now)?: No Review of Systems: Review of Systems Physical Exam: ED Triage Vitals [12/01/24 2346] Temp Heart Rate Resp BP SpO2 36.9 ??C (98.5 ??F) (!) 131 24 (!) 152/100 97 % Temp Source Heart Rate Source Patient Position BP Location FiO2 (%) Oral Pulse Ox Semi-fowlers Left arm -- Vitals: 12/02/24 0215 12/02/24 0245 12/02/24 0300 12/02/24 0315 BP: (!) 120/103 115/84 Temp: TempSrc: Pulse: 96 89 95 90 Resp: 19 24 16 21 SpO2: 97% 97% 99% MAP (mmHg): 95 Height: Weight: Physical Exam Cardiovascular: Rate and Rhythm: Normal rate and regular rhythm. Pulses: Normal pulses. Comments: Equal pulses bilaterally. Equal blood pressures on each arm. Pulmonary: Effort: Pulmonary effort is normal. Breath sounds: Normal breath sounds. Abdominal: General: There is no distension. Palpations: Abdomen is soft. Tenderness: There is abdominal tenderness. There is no guarding or rebound. Comments: Tenderness in the epigastric region but no pulsatile mass. Skin: General: Skin is warm. Neurological: Mental Status: Ida is alert and oriented to person, place, and time. Psychiatric: Mood and Affect: Mood normal. Procedure: Procedures Re-evaluation: Re-Evaluation Medical Decision Making 44-year-old female, HPI and physical exam documented above. Differentials include ACS, NSTEMI, STEMI, PE, aortic dissection. Discussed with patient that given her recent hospitalization as well as history of Arden-Danlos syndrome, there is concern for potential PE versus aortic dissection as a cause for her abdominal, chest, and back pain. Discussed with patient that we would like to obtain a CTA chest abdomen and pelvis to rule out these emergencies. Would also like to obtain cardiac workup including EKG, CBC, CMP, lipase, troponin x2, urinalysis. Patient denies stating that she has a hysterectomy. Discussed with patient that we will provide symptomatic management with fluid bolus and Zofran as well as morphine and Pepcid for her symptoms. Patient agreeable with plan. Amount and/or Complexity of Data Reviewed Labs: ordered. Radiology: ordered. Decision-making details documented in ED Course. ECG/medicine tests: ordered. Risk Prescription drug management. ED Course: ED Course as of 12/02/24440Dec 02, 2024 015 Called to bedside due to IV catheter infiltration after contrast. On evaluation, the patient'sright AC was edematous. RN stated that when she went to remove the IV the IV had removed but the catheter stayed in her skin. RN stated that she was able to see the external portion of the catheter and went to immediately grab it however it migrated into the patient. This was when I was called to bedside. I attempted to palpate for a foreign body however was unable to palpate a foreign body. Bedside ultrasound was utilized to look for a foreign body however was unable to visualized foreign bodyon ultrasound. X-ray of the right upper extremity was obtained which showed infiltration of contrast. Jeison bandage was applied in IV tourniquet was applied as proximal as possible to the right upper extremity. Hyluronidase was ordered. Spoke with general surgery Dr. Smyth for their recommendationshowever general surgery had no further input. If vascular surgery at [facility] was consulted.I spoke with Dr. Corin Perkins who stated to apply the Jeison bandage and re-evaluate an hour later once the swelling has time to go down and see if we could find the foreign body the. If unable to findthe foreign body vascular surgery stated that there would be no further intervention at this time as they also will not go after a foreign body that they are unable to feel or identify. Per vascular surgery very low likelihood of catheter migrating to heart, brain, or lungs. [SD] [address] scan without contrast of right upper extremity to try and identify foreign body. [SD] 0227 CT angiogram abdomen and pelvis IMPRESSION: * No abdominal aortic aneurysm or dissection. No other evidence for an acute process in the abdomenor pelvis. * Chronic changes detailed above. [SD] 0228 CT angiogram chest IMPRESSION: 1. No evidence of large central, main or lobar pulmonary thromboembolism. Evaluation of the distal medial smaller vessels is compromised by bolus timing [SD] 0228 X-ray forearm right 2 views Impression: There is a large amount of high attenuation material seen within the antecubital fossa compatible with contrast extravasation. This compromises assessment for foreign body. Follow-up imaging is recommended. [SD] 0348 CT humerus right without contrast IMPRESSION: * No discrete retained foreign body identified. However, evaluation for a foreign body is compromised of the presence of high attenuation contrast material from contrast infiltration centered at the antecubital fossa. Given the patient's history, recommend a follow-up ultrasound of this region to evaluate for foreign body. Alternatively, follow-up CT in 48 hours could be considered after reinsertion of contrast material to better assess for a radiopaque foreign body. * Recommend placing warm or cold compresses as well as elevation of the arm, and assessing for capillary refill and checking for development of blistering in this region due to the infiltration. [SD] 0348 Reassess patient is arm, the swelling is improving. Attempted to feel for foreign body as wellas look for foreign body again under ultrasound guidance. Still was unable to identify foreign body. [SD] 0349 Discussed imaging and lab results with patient. Only 1 troponin was received however patient did not want an IV poke again after having the IV catheter break off. First troponin was negative inpatient refusing 2nd troponin. [SD] 0350 Patient was advised to follow up with PCP for a soon as possible. Patient was also given information for vascular surgeon. Compression bandage was replaced over the a part of the arm where the contrast infiltrated. Discussed with patient to leave the compression bandage on tonight and she can take it off later in the day. Discussed with patient that if the swelling goes down and she is able to feel the foreign body she can call the vascular surgeon and make an appointment with them to potentially have the foreign body removed. Also discussed with patient that she could get reimaging donein [address] scan or ultrasound to further look for a foreign body. Patient was advised to follow up with PCP for a soon as possible. Return precautions were discussed with patient. Patient medically stable for discharge. [SD] ED Course User Index [SD] Liza Hernandez MD Clinical Impressions as of 12/02/24 0441 Chest pain, unspecified type . ED Disposition ED Disposition Discharge Date/Time ThuDec 02, 2024 3:55 AM Comment At the time of discharge, the plan has been discussed with the patient regarding the diagnosis and prognosis. All questions have been answered. Verbal discharge instructions were discussed with the patient. The patient has been advised to follow up w ith their Primary Care Provider within 1-2 days.The patient was also instructed to return to the ED if their symptoms change, worsen, new symptoms a rise or if they have any additional concerns. . Please note that portions of this note were completed with a voice recognition program. Efforts were made to edit the dictations but occasionally words are mis-transcribed. Liza Hernandez MD 12/02/24 004 Liza Hernandez MD 12/02/2448 Liza Hernandez MD 12/02/24 0429 Liza Hernandez MD 12/02/24 0441 * Cely Mendez RN - 12/02/2024 12:09 AM EDT Pt states was d/c from [facility] today for an admission to address epilepsy medications. At d/c started to have LUQ abd pain that has worsened. Tried anti-gas medication at home c no improvement. documented in this encounter Plan of Treatment DateTypeDepartmentCare Team (Latest Contact Info)Ccehobltvof24/14/2026 1:15 PM EDTOffice Visit [facility] [address] [place] [address] [place] [address] [place] [address] Ida Casanova I, PA [facility] [place] [address] NameTypePriorityAssociated DiagnosesOrder ScheduleVas venous duplex upr single rightVascular UltrasoundSTAT Chest pain, unspecified type Expected: 12/04/2024, Expires: 12/02/2025documented as of this encounter Goals GoalPatient Goal TypeAssociated ProblemsRecent ProgressPatient-Stated?Author <enter goal here> Ling Del Toro RN Note: Evaluation of progress towards goal: home self care and family support documented as of this encounter Procedures Procedure NamePriorityDate/TimeAssociated DiagnosisCommentsPOCT NURSING URINE MACROSCOPIC IHXfnmfam58/24/2025 2:[address] HUMERUS RT WO IAYHZWBE06/24/2025 2:36 AM EDT ER EXTRA URINE ICPGOHWCCCG55/24/2025 2:36 AM EDT ER EXTRA MCKAPZKAC06/24/2025 2:36 AM EDT XR HUMERUS RT MIN 2 QBALDXU29/24/2025 1:48 AM EDT XR FOREARM RT 2 IXOVUWS64/24/2025 1:[address] CTA ZDDMNLFPI61/24/2025 1:[address] CTA ABD AND ULOPOQYPVM68/24/2025 1:43 AM EDT TROPONIN I, HIGH SENSITIVITY 0 HOURAdd-On12/02/2024 12:00 AM EDT EXTRA TUBES BLUE IQMSfuolea03/24/2025 12:00 AM EDT TROPONIN I, HIGH SENSITIVITY 0 HOURAdd-On12/02/2024 12:00 AM EDT EXTRA KWJWVBtkitdc97/24/2025 12:00 AM EDT CBC WITH AUTO BHVNVJJTEAFDKSHI29/24/2025 12:00 AM EDT FCLMZOFVIW63/24/2025 12:00 AM EDT COMPREHENSIVE METABOLIC AXWETMLPX01/24/2025 12:00 AM EDT documented in this encounter Results * (ABNORMAL) POCT Nursing Urine Macroscopic UA (12/02/2024 2:39 AM EDT)Component ValueRef RangeTest MethodAnalysis TimePerformed AtPathologist [facility] Urine Specific Gravity1.0101.010, 1.015, 1.020, 1.9172912/02/2024 2:40 AM EDT [facility] Urine Leukocyte EsteraseNegative Owfkazqp54/24/2025 2:40 AM EDT[facility] Urine GqyasciVpvsbdcpUbrcvuha08/24/2025 2:40 [facility] Urine pH7.05.0, 6.0, 6.5, 7.0, 7.5, 8.0, 8.5, 5.510/ 2:40 AM [facility] Urine ProteinNegativeNegative 12/02/2024 2:40 AM [facility] Urine Glucose VwyholhzSawtiuow96/24/2025 2:40 AM [facility] Urine Kqaslqc24 mg/dL(A)Vgjnknnd06/24/2025 2:40 AM [facility] Urine Urobilinogen0.2 E.U./dL12/02/2024 2:40 AM EDT [facility] Urine BilirubinNegativeNegative 12/02/2024 2:40 AM [facility] Urine Blood/HGB Moderate(A)Vdcvoljy74/24/2025 2:40 AM [facility] Specimen (Source)Anatomical Location / LateralityCollection Method / Volume Collection TimeReceived EknfWypnj18/24/2025 2:39 AM EDT1 2:40 AM EDT Narrative Authorizing ProviderResult TypeResult StatusStacy Dybas MDPOINT OF CARE TEST ORDERABLESFinal ResultPerforming OrganizationAddressCity/State/ZIP CodePhone Number [facility] [address] [place] [address], * CT humerus right without contrast (12/02/2024 2:36 AM EDT)Anatomical Region LateralityModalityMSK, Upper Extremities, Humerus, MSK CoveraRightComputed TomographySpecimen (Source)Anatomical Location / LateralityCollection Method / VolumeCollection TimeReceived Time12/02/2024 3:04 AM EDT Narrative 12/02/2024 3:[address] RIGHT HUMERUS WITHOUT CONTRAST COMPARISON: ??None. HISTORY: ??IV catheter broke off inside vasculature, evaluate for foreign body. TECHNIQUE: Unenhanced axial images of the right humerus obtained with sagittal and coronal 2-D reformatted images. ??Automatic exposure control (AEC) was utilized. FINDINGS: There is contrast infiltration with extravasation of contrast centered in the antecubital fossa tracking superiorly and inferiorly. There is no discrete retained foreign body. However, evaluation fora foreign body is compromised by the presence of high attenuation contrast material. No acute fracture or destructive lesion. IMPRESSION: * ??No discrete retained foreign body identified. However, evaluation for a foreign body is compromised of the presence of high attenuation contrast material from contrast infiltration centered at the antecubital fossa. Given the patient's history, recommend a follow-up ultrasound of this region to evaluate for foreign body. Alternatively, follow-up CT in 48 hours could be considered after reinsertion of contrast material to better assess for a radiopaque foreign body. * ??Recommend placing warm or cold compresses as well as elevation of the arm, and assessing for capillary refill and checking for development of blistering in this region due to the infiltration. All CT scans at this facility use dose modulation, iterative reconstruction, and/or weight based dosing when appropriate to reduce radiation dose to as low as reasonably achievable. Finalized by Galen Nagy MD on 12/02/2024 3:13 AM Procedure Note Galen Nagy MD - 12/02/2024 CT RIGHT HUMERUS WITHOUT CONTRAST COMPARISON: None. HISTORY: IV catheter broke off inside vasculature, evaluate for foreignbody. TECHNIQUE: Unenhanced axial images of the right humerus obtained withsagittal and coronal 2-D reformatted images. Automatic exposure control(AEC) was utilized. FINDINGS: There is contrast infiltration with extravasation of contrast centered inthe antecubital fossa tracking superiorly and inferiorly. There is nodiscrete retained foreign body. However, evaluation for a foreign body iscompromised by the presence of high attenuation contrast material. Noacute fracture or destructive lesion. IMPRESSION: * No discrete retained foreign body identified. However, evaluation for aforeign body is compromised of the presence of high attenuation contrastmaterial from contrast infiltration centered at the antecubital fossa.Given the patient's history, recommend a follow-up ultrasound of thisregion to evaluate for foreign body. Alternatively, follow-up CT in 48 hours couldbe considered after reinsertion of contrast material to better assess fora radiopaque foreign body. * Recommend placing warm or cold compresses as well as elevation of thearm, and assessing for capillary refill and checking for development ofblistering in this region due to the infiltration. All CT scans at this facility use dose modulation, iterativereconstruction, and/or weight based dosing when appropriate to reduceradiation dose to as low as reasonably achievable. Finalized by Galen Nagy MD on 12/02/2024 3:13 AM Authorizing ProviderResult TypeResult Nohemi KAY CT ORDERABLESFinal Result * Extra Urine Culture (12/02/2024 2:36 AM EDT)ComponentValueRef RangeTest Method Analysis TimePerformed AtPathologist SignatureExtra TubeAuto Resulted 12/02/2024 4:02 AM [facility] (Source) Anatomical Location / LateralityCollection Method / VolumeCollection Time Received TimeUrineUrine specimen collection, clean catch / Hcooobe1712/02/2024 2:36 AM EDT1 2:57 AM EDT Narrative Authorizing ProviderResult TypeResult Nohemi ALBARADO ORDERABLESFinal ResultPerforming OrganizationAddressCity/State/ZIP CodePhone Number [address] [place] [address], [place] * Extra Urine (12/02/2024 2:36 AM EDT)ComponentValueRef RangeTest MethodAnalysis TimePerformed AtPathologist SignatureExtra TubeAuto Cczztfok31/24/2025 4:02 AM [facility] (Source)Anatomical Location / LateralityCollection Method / VolumeCollection TimeReceived TimeUrineUrine specimen collection, clean catch / Ktnnhct2512/02/2024 2:36 AM EDT1 2:57 AM EDT Narrative Authorizing ProviderResult TypeResult Nohemi ALBARADO ORDERABLESFinal ResultPerforming OrganizationAddressty/State/ZIP CodePhone Number [address] [address], [place] * X-ray humerus right minimum 2 views (12/02/2024 1:48 AM EDT)Anatomical Region LateralityModalityUpper Extremities, MSK, HumerusRightComputed Radiography Specimen (Source)Anatomical Location / LateralityCollection Method / Volume Collection TimeReceived Time12/02/2024 1:50 AM EDT Narrative 12/02/2024 1:51 AM EDT XR HUMERUS RT MIN 2 VWS Clinical history:FOREIGN BODY ??pain Comparison: None. Impression: Large amount of high attenuation material overlying the anterior fossa compatible contrast extravasation was compromises assessment for radiopaque foreign body. Follow-up imaging is recommended. Finalized by Austin Fofana MD on 12/02/2024 1:51 AM Procedure Note Austin Fofana MD - 12/02/2024 XR HUMERUS RT MIN 2 VWS Clinical history:FOREIGN BODY pain Comparison: None. Impression: Large amount of high attenuation material overlying the anterior fossacompatible contrast extravasation was compromises assessment forradiopaque foreign body. Follow-up imaging is recommended. Finalized by Austin Fofana MD on 12/02/2024 1:51 AM Authorizing ProviderResult TypeResult StatusStacy [facility] DIAGNOSTIC IMAGING ORDERABLESFinal Result * X-ray forearm right 2 views (12/02/2024 1:48 AM EDT)Anatomical Region LateralityModalityUpper Extremities, MSK, ForearmRightComputed Radiography Specimen (Source)Anatomical Location / LateralityCollection Method / Volume Collection TimeReceived Time12/02/2024 1:48 AM EDT Narrative 12/02/2024 1:50 AM EDT XR FOREARM RT 2 VWS Clinical history:FOREIGN BODY ??pain Comparison: None. Impression: There is a large amount of high attenuation material seen within the antecubital fossa compatible with contrast extravasation. This compromises assessment for foreign body. Follow-up imaging is recommended. Finalized by Austin Fofana MD on 12/02/2024 1:50 AM Procedure Note Austin Fofana MD - 12/02/2024 XR FOREARM RT 2 VWS Clinical history:FOREIGN BODY pain Comparison: None. Impression: There is a large amount of high attenuation material seen within theantecubital fossa compatible with contrast extravasation. This compromisesassessment for foreign body. Follow-up imaging is recommended. Finalized by Austin Fofana MD on 12/02/2024 1:50 AM Authorizing ProviderResult TypeResult StatusStdanita Hernandez IMG DIAGNOSTIC IMAGING ORDERABLESFinal Result * CT angiogram abdomen and pelvis (12/02/2024 1:43 AM EDT)Anatomical Region LateralityModalityBody, Abdomen, Body CoveraN/AComputed TomographySpecimen (Source)Anatomical Location / LateralityCollection Method / VolumeCollection TimeReceived Time12/02/2024 1:53 AM EDT Narrative 12/02/2024 2:01 AM EDT CTA ABDOMEN AND PELVIS WITH CONTRAST COMPARISON: ??06/03/2024 HISTORY: ??Tachycardia, chest pain radiating to back, history of Arden-Danlos syndrome, rule out aortic dissection. TECHNIQUE: Omnipaque 350 nonionic contrast injected intravenously without reported complication. Thin section axial images of the abdomen and pelvis obtained. Multiplanar reformatted 3-D maximum intensity projection images of the abdominal aorta and the iliac vessels generated under concurrent physician supervision and reviewed. ??Automatic exposure control (AEC) was utilized. FINDINGS: Gallbladder is present. Liver, spleen, pancreas, kidneys, and adrenal glands demonstrate no acute findings, for technique. No free intraperitoneal fluid or free intraperitoneal air. No bowel obstruction. Evaluation of the splenic flexure and descending colon is compromised by underdistention, likely caliber apparent mildwall thickening. No definite evidence for acute colitis. No pneumatosis or portal venous gas. Appendix is in the right lower quadrant and is normal. No abdominal aortic aneurysm or dissection. Patent mesenteric and renal arteries. Accessory left renal artery. Small fat-containing periumbilical hernia. No acute osseous abnormality. Bilateral hypertrophic andright subcortical cystic change at the femoral head neck junctions, which can be seen with femoral acetabular impingement. Uterus is surgically absent. IMPRESSION: * ??No abdominal aortic aneurysm or dissection. No other evidence for an acute process in the abdomen or pelvis. * ??Chronic changes detailed above. All CT scans at this facility use dose modulation, iterative reconstruction, and/or weight based dosing when appropriate to reduce radiation dose to as low as reasonably achievable. Finalized by Galen Nagy MD on 12/02/2024 2:01 AM Procedure Note Galen Nagy MD - 12/02/2024 CTA ABDOMEN AND PELVIS WITH CONTRAST COMPARISON: 06/03/2024 HISTORY: Tachycardia, chest pain radiating to back, history ofEhlers-Danlos syndrome, rule out aortic dissection. TECHNIQUE: Omnipaque 350 nonionic contrast injected intravenously without reported complication. Thin section axial images of the abdomen and pelvis obtained. Multiplanar reformatted 3-D maximum intensity projection imagesof the abdominal aorta and the iliac vessels generated under concurrent physician supervision and reviewed. Automatic exposure control (AEC) was utilized. FINDINGS: Gallbladder is present. Liver, spleen, pancreas, kidneys, and adrenalglands demonstrate no acute findings, for technique. No free intraperitoneal fluid or free intraperitoneal air. No bowelobstruction. Evaluation of the splenic flexure and descending colon iscompromised by underdistention, likely caliber apparent mild wallthickening. No definite evidence for acute colitis. No pneumatosis orportal venous gas. Appendix is in the right lower quadrant and is normal. No abdominal aortic aneurysm or dissection. Patent mesenteric and renalarteries. Accessory left renal artery. Small fat-containing periumbilical hernia. No acute osseous abnormality. Bilateral hypertrophic and right subcortical cystic change at the femoralhead neck junctions, which can be seen with femoral acetabularimpingement. Uterus is surgically absent. IMPRESSION: * No abdominal aortic aneurysm or dissection. No other evidence for anacute process in the abdomen or pelvis. * Chronic changes detailed above. All CT scans at this facility use dose modulation, iterativereconstruction, and/or weight based dosing when appropriate to reduceradiation dose to as low as reasonably achievable. Finalized by Galen Nagy MD on 12/02/2024 2:01 AM Authorizing ProviderResult TypeResult StatusStacy Daniellinus GRANADOSG CT ORDERABLESFinal Result * CT angiogram chest (12/02/2024 1:43 AM EDT)Anatomical RegionLateralityModality Lung, Body, Chest, Vascular, Body CoveraN/AComputed TomographySpecimen (Source)Anatomical Location / LateralityCollection Method / VolumeCollection TimeReceived Time12/02/2024 1:53 AM EDT Narrative 12/02/2024 1:55 AM EDT STUDY: CT angiography of the chest with contrast CLINICAL HISTORY: Pulmonary embolism. Left chest pain, recent hospitalization, tachycardiac, r/o PE COMPARISON: 06/03/2024 TECHNIQUE: CT angiography of the chest was performed utilizing thin section axial images with coronal and sagittal reformatted images generated. 3-D maximum intensity projection coronal and sagittal reformatted images generated and reviewed. Images acquired following the uneventful administration of 100 cc Omnipaque 350 nonionic intravenous contrast. Automated exposure control was utilized. FINDINGS: Pulmonary arterial opacification is adequate fairly large central, main and lobar vessels. There isno large central, main or lobar pulmonary thromboembolism identified. Evaluation of the distal mainand smaller vessels is compromised by bolus timing and motion artifact. No pneumothorax. The central airways patent. Lung apices are not included in the provided field of view. Degenerative changes of the thoracic spine. No vertebral body height loss. IMPRESSION: 1. No evidence of large central, main or lobar pulmonary thromboembolism. Evaluation of the distal medial smaller vessels is compromised by bolus timing. All CT scans at this facility use dose modulation, iterative reconstruction, and/or weight based dosing when appropriate to reduce radiation dose to as low as reasonably achievable. Finalized by Austin Fofana MD on 12/02/2024 1:55 AM Procedure Note Austin Fofana MD - 12/02/2024 STUDY: CT angiography of the chest with contrast CLINICAL HISTORY: Pulmonary embolism. Left chest pain, recenthospitalization, tachycardiac, r/o PE COMPARISON: 06/03/2024 TECHNIQUE: CT angiography of the chest was performed utilizing thinsection axial images with coronal and sagittal reformatted imagesgenerated. 3-D maximum intensity projection coronal and sagittalreformatted images generated and reviewed. Images acquired following theuneventful administration of 100 cc Omnipaque 350 nonionic intravenous contrast. Automated exposurecontrol was utilized. FINDINGS: Pulmonary arterial opacification is adequate fairly large central, mainand lobar vessels. There is no large central, main or lobar pulmonarythromboembolism identified. Evaluation of the distal main and smallervessels is compromised by bolus timing and motion artifact. No pneumothorax. The central airways patent. Lung apices are not includedin the provided field of view. Degenerative changes of the thoracic spine. No vertebral body heightloss. IMPRESSION: 1. No evidence of large central, main or lobar pulmonary thromboembolism. Evaluation of the distal medial smaller vessels is compromised by bolustiming. All CT scans at this facility use dose modulation, iterativereconstruction, and/or weight based dosing when appropriate to reduceradiation dose to as low as reasonably achievable. Finalized by Austin Fofana MD on 12/02/2024 1:55 AM Authorizing ProviderResult TypeResult StatusStdanita Hernandez MDIMG CT ORDERABLESFinal Result * Troponin I, High Sensitivity 0 Hour (12/02/2024 12:00 AM EDT)ComponentValueRef RangeTest MethodAnalysis TimePerformed AtPathologist SignatureTROPONIN I, HIGH SENSITIVITY5<16 ng/L1 1:24 AM [facility] (Source)Anatomical Location / LateralityCollection Method / VolumeCollection TimeReceived TimeBloodVenous blood / UnknownVenipuncture / [id number] 12:04 AM EDT Narrative Authorizing ProviderResult TypeResult StatusLiza Hernandez MDLAB BLOOD ORDERABLES Final ResultPerforming OrganizationAddressCity/State/ZIP CodePhone Number [address] [place] [address], [place] * Light Blue Top (12/02/2024 12:00 AM EDT)ComponentValueRef RangeTest Method Analysis TimePerformed AtPathologist SignatureExtra TubeAuto Resulted 12/02/2024 1:01 AM [facility] (Source) Anatomical Location / LateralityCollection Method / VolumeCollection Time Received TimeBloodVenous blood / Wvycjyb13 12:07 AM EDT Narrative Authorizing ProviderResult TypeResult StatusDunia Colón DOLAB BLOOD ORDERABLESFinal ResultPerforming OrganizationAddressCity/State/ZIP CodePhone Number [address] [address], [place] * Lipase (12/02/2024 12:00 AM EDT)ComponentValueRef RangeTest MethodAnalysis TimePerformed AtPathologist [id number] - 40 U/L1 12:20 AM EDTR[facility]ENTERpecimen (Source)Anatomical Location / LateralityCollection Method / VolumeCollection TimeReceived TimeBloodVenous blood / UnknownVenipuncture / [id number] 12:04 AM EDT Narrative Authorizing ProviderResult TypeResult StatusStacy David KRISHNA BLOOD ORDERABLES Final ResultPerforming OrganizationAddressCity/State/ZIP CodePhone Number [facility] [address] [place] [address], * (ABNORMAL) Comprehensive metabolic panel (12/02/2024 12:00 AM EDT)Component ValueRef RangeTest MethodAnalysis TimePerformed AtPathologist SignatureSODIUM 132(L)134 - 146 mmol/L1 12:22 AM [facility]ENTERPOTASSIUM3.73.5 - 5.0 mmol/L1 12:22 AM [facility]ENTERCHLORIDE93(L)98 - 109 mmol/L1 12:22 AM EDOH[facility]PITALCARBON RGGBMCH1532 - 32 mmol/L1 12:22 AM EDT [facility]ENTERANION OCE08zxev/L1 12:22 AM EDT [facility]ENTERBLOOD UREA CXSJVAIV012 - 23 mg/dL12/02/2024 12:22 AM EDOH[facility]HE[facility]IN [facility] HOSPITALCREATININE0.720.70 - 1.00 mg/dL12/02/2024 12:22 AM [facility] CENTERComment:METHOD TRACEABLE TO IDMS [id number](H)65 - 99 mg/dL12/02/2024 12:22 AM EDT [facility] CENTERCALCIUM10.08.5 - 10.5 mg/dL12/02/2024 12:22 AM [facility] CENTERTOTAL PROTEIN8.7(H)6.0 - 8.0 g/dL 12/02/2024 12:22 AM [facility]ENTERALBUMIN5.13.2 - 5.3 g/dL12/02/2024 12:22 AM [facility]ENTERALKALINE [id number] - 130 U/L1 12:22 AM [facility]ENTERAST28<=41 U/L1 12:22 AM [facility]ENTERALT25<=31 U/L1 12:22 AM [facility] CENTERBILIRUBIN,TOTAL0.60.3 - 1.2 mg/dL12/02/2024 12:22 AM [facility] CENTEREGFR Non-Race Dependent>90>=60 ml/min/1.73sq.m 12/02/2024 12:22 AM [facility] CENTERComment: eGFR not reported due to non-numeric value for Creatinine. Reported eGFR is based on the CKD-EPI 2020 equation that does not use a race coefficient. Specimen (Source)Anatomical Location / LateralityCollection Method / Volume Collection TimeReceived TimeBloodVenous blood / UnknownVenipuncture / Unknown 12:04 AM EDT Narrative Authorizing ProviderResult TypeResult StatusStacy David KRISHNA BLOOD ORDERABLES Final ResultPerforming OrganizationAddressCity/State/ZIP CodePhone Number [facility] [address] [place] [address], * (ABNORMAL) CBC auto differential (12/02/2024 12:00 AM EDT)ComponentValueRef RangeTest MethodAnalysis TimePerformed AtPathologist JuoscgqrzLPW58.1(H)4 - 11 x10E9/L1 12:09 AM [facility] CENTERRBC Count 4.654.1 - 5.2 X10E12/L1 12:09 AM [facility] CENTERHemoglobin15.112 - 15.5 g/dL12/02/2024 12:09 AM [facility] CENTERHematocrit42.735 - 47 %12/02/2024 12:09 AM [facility]ENTERMCV92fL12/02/2024 12:09 AM [facility] CENTERMCH32.5pg1 12:09 AM [facility] CENTERMCHC35.4g/dL12/02/2024 12:09 AM [facility] RDW13.0%12/02/2024 12:09 AM [facility] CENTERPlatelet Cswww021(H)150 - 450 X10E9/L1 12:09 AM [facility] CENTERMPV7.4fL1 12:09 AM [facility] Neutrophils %76.4%12/02/2024 12:09 AM [facility] Lymphocytes %16.8%12/02/2024 12:09 AM [facility] Monocytes %6.2%12/02/2024 12:09 AM [facility] Eosinophils %0.1%12/02/2024 12:09 AM [facility] Basophils %0.5%12/02/2024 12:09 AM [facility] Neutrophils Absolute (A)10.0(H)1.5 - 6.6 10*3/uL12/02/2024 12:09 AM [facility]ymphocytes Absolute2.21.0 - 3.5 10*3/uL 12/02/2024 12:09 AM [facility] CENTERMonocytes Absolute 0.80.0 - 0.9 10*3/uL12/02/2024 12:09 AM [facility] Eosinophils Absolute0.00.0 - 0.4 10*3/uL12/02/2024 12:09 AM [facility] CENTERBasophils Absolute0.10.0 - 0.2 10*3/uL12/02/2024 12:09 AM [facility] CENTERDifferential TypeAUTOMATED LJQWWMGASVCV29/24/2025 12:09 AM EDTPROMEDCENTRAL VALLEY GENERAL HOSPITALpecimen (Source)Anatomical Location / LateralityCollection Method / VolumeCollection TimeReceived TimeBloodVenous blood / UnknownVenipuncture / Ovktlya8612/02/2024 12/02/2024 12:04 AM EDT Narrative Authorizing ProviderResult TypeResult StatusStacy David KRISHNA BLOOD ORDERABLES Final ResultPerforming OrganizationAddressCity/State/ZIP CodePhone Number [facility] [address] [place] [address], documented in this encounter Visit Diagnoses Diagnosis Chest pain, unspecified type- Primary documented in this encounter Administered Medications Medication OrderMAR ActionAction DateDoseRateSite famotidine (PF) (PEPCID) injection 20 mg 20 mg, intravenous, Once, On Thu12/02/24 at 0041, For 1 dose, Dilute to total volume of 5 mL with 0.9% sod chl and administer IVP over 2 minutes. Given12/02/2024 12:47 AM EDT20 mg hyaluronidase, human recomb. (HYLENEX) 150 unit/mL injection 150 Units 150 Units, subcutaneous, Once, On Thu12/02/24 at 0154, For 1 dose, Inject 0.1 to 0.2 mL of the 150units/mL solution in 5 to 10 doses for a total dose of 150 units (1 mL) into the affected area at the leading edge in a clockwise manner. Use a new 25-gauge needle for each injection. Look-alike/sound-alike medication - verify indication for use., Indication: Extravasation management, What medication experienced extravasation? IV contrast Given12/02/2024 2:31 AM NJA698 UnitsRight Arm iohexoL (OMNIPAQUE) 350 mg iodine/mL injection 100 mL 100 mL, intravenous, Once in imaging, contrast, Starting on Thu12/02/24 at 0052, For 1 dose, VESICANT (RED) Given12/02/2024 1:45 AM PSM249 mL morphine injection 4 mg 4 mg, intravenous, Once, On Thu12/02/24 at 0041, For 1 dose, Look-alike/sound-alike medication - verify indication for use. Given12/02/2024 12:45 AM EDT4 mg ondansetron (PF) (ZOFRAN) 4 mg/2 mL injection - Pyxis Override Pull Starting on Thu12/02/24 at 0054, For 1 dose, CELY MENDEZ: cabinet override Intravenous administration preferred to be given over 2-5 minutes. ondansetron (PF) (ZOFRAN) injection 4 mg 4 mg, intravenous, Once, On Thu12/02/24 at 0057, For 1 dose, Intravenous administration preferred to be given over 2-5 minutes. Given12/02/2024 12:56 AM EDT4 mg sodium chloride 0.9 % bolus 1,000 mL, intravenous, at 984 mL/hr, Administer over 61 Minutes, Once, On Thu12/02/24 at 0041, For1 dose New Bag12/02/2024 12:45 AM EDT1,000 mL984 mL/hr sodium chloride 0.9 % flush 10 mL 10 mL, intravenous, As needed, line care, Starting on Thu12/02/24 at 0052 Given12/02/2024 1:45 AM EDT10 mL sodium chloride 0.9 % radiology injection 80 mL, intravenous, Once in imaging, pre/post contrast, Starting on Thu12/02/24 at 0052, For 1 dose Given12/02/2024 1:43 AM EDT80 mLdocumented in this encounter Active and Recently Administered Medications Times are shown in EDT.Medication Order/ famotidine (PF) (PEPCID) injection 20 mg (COMPLETED) 20 mg, intravenous, Once, On Thu12/02/24 at 0041, For 1 dose, Dilute to total volume of 5 mL with 0.9% sod chl and administer IVP over 2 minutes. * 0047 (Given - Provider: Cely Mendez RN) hyaluronidase, human recomb. (HYLENEX) 150 unit/mL injection 150 Units (COMPLETED) 150 Units, subcutaneous, Once, On Thu12/02/24 at 0154, For 1 dose, Inject 0.1 to 0.2 mL of the 150units/mL solution in 5 to 10 doses for a total dose of 150 units (1 mL) into the affected area at the leading edge in a clockwise manner. Use a new 25-gauge needle for each injection. Look-alike/sound-alike medication - verify indication for use., Indication: Extravasation management, What medication experienced extravasation? IV contrast * 0231 (Given - Provider: Cely Mendez, ANSELMO) morphine injection 4 mg (COMPLETED) 4 mg, intravenous, Once, On Thu12/02/24 at 0041, For 1 dose, Look-alike/sound-alike medication - verify indication for use. * 0045 (Given - Provider: Cely Mendez, ANSELMO) ondansetron (PF) (ZOFRAN) injection 4 mg (COMPLETED) 4 mg, intravenous, Once, On Thu12/02/24 at 0057, For 1 dose, Intravenous administration preferred to be given over 2-5 minutes. * 0056 (Given - Provider: Cely Mendez, RN) * 0057 (Due) sodium chloride 0.9 % bolus (COMPLETED) 1,000 mL, intravenous, at 984 mL/hr, Administer over 61 Minutes, Once, On Thu12/02/24 at 0041, For1 dose * 0045 (New Bag - Provider: Cely Mendez, RN) * 0104 (Stop Bag - Provider: Cely Mendez, ANSELMO) Medication Order// iohexoL (OMNIPAQUE) 350 mg iodine/mL injection 100 mL (COMPLETED) 100 mL, intravenous, Once in imaging, contrast, Starting on Thu12/02/24 at 0052, For 1 dose, VESICANT (RED) * 0145 (Given - Provider: KRUNAL James - Comment: [id number]) sodium chloride 0.9 % flush 10 mL 10 mL, intravenous, As needed, line care, Starting on Thu12/02/24 at 0052 * 0145 (Given - Provider: KRUNAL James) sodium chloride 0.9 % radiology injection (COMPLETED) 80 mL, intravenous, Once in imaging, pre/post contrast, Starting on Thu12/02/24 at 0052, For 1 dose * 0143 (Given - Provider: KRUNAL James) documented in this encounter Care Teams Team MemberRelationshipSpecialtyStart DateEnd Date Jaja Hanson, DENTAL TECHNICIAN-[employer] AND [employer] PROTECTION INSPECTOR [address] [place] [address] PCP - GeneralNurse Practitioner09/07/23documented as of this encounter
[2024-12-02 13:42] VITALS: BP 151/92; PULSE 100; TEMP 36.7; O2SAT 99; BMI 24.9
--- NOTE | 2024-12-02 13:57 | US_ITS ---
[address] [address] Patient Name: PRUDENCE RIVERA MRN: [id number] date: 1980 Sex: F Assigned Patient Location: ER Current Patient Location: ED.MAIN Accession/Order Number: [id number] Exam Date: 12/02/2024 14:49 Report Date: 12/02/2024 16:43 At the request of: ORI DEE Procedure: US extremity nonvascular RT US extremity nonvascular RT 12/02/2024 3:50 PM SIGNS AND SYMPTOMS: angiocatheter possibly broken in RUE PROTOCOL: Grayscale and color sonographic images of the antecubital fossa of the right upper extremity COMPARISON: None FINDINGS: There is normal subcutaneous soft tissues. There is no evidence of linear echogenic structure to suggest the presence of a catheter fragment along the vasculature. If there is ongoing clinical concern, follow-up with radiographs may be helpful. US/US extremity nonvascular RT IMPRESSION: There is no evidence of linear echogenic structure to suggest the presence of a catheter fragment along the vasculature. If there is ongoing clinical concern, follow-up with radiographs may be helpful. Impression dictated by: Tevin Choudhary M.D. 12/02/2024 4:43 PM Dictation Location: [place] [address] Electronically authenticated by: [id number] Y Date: 12/02/2024 16:43
--- NOTE | 2024-12-02 14:02 | ED_ITS ---
HPI HPI - General Adult General Chief complaint: Extremity Problem, Nontraumatic Stated complaint: UPPER EXTREMITY PAIN - CHECK A PREVIOUS IV SITE Time Seen by Provider: 12/02/24 13:41 Source: patient Mode of arrival: walk-in History of Present Illness HPI narrative: Patient presents to the emergency department for evaluation of a possible angiocatheter foreign body remaining in the right upper extremity. Patient had IV inserted in the right antecubital fossa yesterday and was undergoing CTA and had contrast extravasation into the right upper extremity. Per patient report, patient states that when she went back to the room to have the IV removed catheter broke off of hub. Patient states that they were unable to find the catheter on bedside ultrasound advised her to use warm compresses and follow-up. Patient states that she woke up today very anxious concerned that this could possibly embolize and cause significant morbidity and decided to come in. Patient denies any chest pain or shortness of breath. Patient does state that the reason she was undergoing CTA was for chest and abdominal pain however after flatulence the pain had subsequently completely resolved on its own and has had no recurrence. She denies any chest pain, palpitations or shortness of breath. Patient denies any numbness or tingling to the upper extremity distal to area of concern. Location: Reports upper extremity (right) Associated symptoms: Reports denies other symptoms Treatments prior to arrival: Reports none Related Data Allergies Allergy/AdvReac Type Severity Reaction Status Date / Time codeine Allergy Severe Difficulty Verified 12/02/24 13:50 Breathing Penicillins Allergy Severe Difficulty Verified 12/02/24 13:50 Breathing prochlorperazine (From Allergy Severe Difficulty Verified 12/02/24 13:50 Compazine) Breathing sulfamethoxazole (From Allergy Severe Difficulty Verified 12/02/24 13:50 Bactrim) Breathing sumatriptan (From Imitrex) Allergy Severe Difficulty Verified 12/02/24 13:50 Breathing trimethoprim (From Bactrim) Allergy Severe Difficulty Verified 12/02/24 13:50 Breathing zolmitriptan (From Zomig) Allergy Severe Difficulty Verified 12/02/24 13:50 Breathing Opioid HPI Opioid Management Most Recent Opioid Data: Last Pain Scale 3 Today, 13:48 Review of Systems ROS Status of ROS 10 or more systems reviewed and unremark able except as noted in history and below Constitutional Denies: fever or chills Cardiovascular Denies: chest pain, palpitations, shortness of breath with exertion or shortness of breath when lying down Respiratory Denies: shortness of breath, wheezing or pain on inspiration Gastrointestinal Denies: abdominal pain Musculoskeletal Denies: extremity swelling Psychiatric Reports: anxiety and panic attacks Exam Constitutional Vital Signs, click to edit/add: Last Vital Signs Temp 98.0 F 12/02/24 13:42 Pulse 90 12/02/24 17:11 Resp 18 12/02/24 17:11 BP 134/95 H 12/02/24 17:11 Pulse Ox 100 12/02/24 17:11 O2 Del Method Room Air 12/02/24 13:42 Documenting provider has reviewed patient's vital signs: yes Common normals: no apparent distress, alert and well nourished Exam limitations: no altered mental status General appearance: cooperative and anxious Chest Common normals: inspection of chest normal Respiratory Common normals: normal respiratory effort, no use of accessory muscles and clear to auscultation bilaterally Effort & inspection: able to speak in complete sentences Cardio Common normals: regular rate, regular rhythm, S1 normal heart sound and S2 normal heart sound Extremity Common normals: full ROM Other: Examination of right upper extremity shows no erythema, induration, edema, palpable foreign body or signs of compartment syndrome. Patient is neurovascularly intact distal to area of concern with full range of motion Course Vital Signs Vital signs: Vital Signs Temperature 98.0 F 12/02/24 13:42 Pulse Rate 100 H 12/02/24 13:42 Respiratory Rate 18 12/02/24 13:42 Blood Pressure 151/92 H 12/02/24 13:42 Pulse Oximetry 99 12/02/24 13:42 Oxygen Delivery Method Room Air 12/02/24 13:42 Temperature 98.0 F 12/02/24 13:42 Pulse Rate 90 12/02/24 17:11 Respiratory Rate 18 12/02/24 17:11 Blood Pressure 134/95 H 12/02/24 17:11 Pulse Oximetry 100 12/02/24 17:11 Oxygen Delivery Method Room Air 12/02/24 13:42 Medical Decision Making MDM Narrative Medical decision making narrative: Patient presented the emergency department with concerns of possible foreign body to the right upper extremity after reported angiocatheter broke off of hub. Patient denied any chest pain, palpitations or shortness of breath, within the confines of her chronic anxiety. Patient denied any numbness or tingling to the upper extremity and no new or changing pain. There was no signs of cellulitis on exam and patient was neurovascularly intact. Vascular and nonvascular ultrasound obtained of the right upper extremity with no identified foreign body. I explained at length with the patient that she will need to follow-up with the previous provided vascular surgery and primary doctor for them to determine if they need to repeat further imaging at 48 hours once contrast has been fully resorbed. Infection warning signs as well as warning signs of a migr atory catheter discussed at length with patient and her and fianc? are comfortable with discharge and follow-up plan Medical Records Medical records reviewed: Yes I reviewed the patient's medical records Medical records narrative: Medical records from [facility] reviewed and does show that that patient underwent imaging that showed no obvious foreign bodies at time of the incident. Imaging Data Venous US: Radiologist's impression: ITS Impressions Extremity Ultrasound 12/02/24 13:57 IMPRESSION: There is no evidence of linear echogenic structure to suggest the presence of a catheter fragment along the vasculature. If there is ongoing clinical concern, follow-up with radiographs may be helpful. Impression dictated by: Tevin Choudhary M.D. 12/02/2024 4:43 PM Dictation Location: [place] [address] Electronically authenticated by: [id number] Y Date: 12/02/2024 16:43 Discharge Plan Discharge Chief Complaint: Extremity Problem, Nontraumatic Clinical Impression: Foreign body Patient Disposition: Home, Self-Care Time of Disposition Decision: 16:59 Condition: Good Mode of Transportation: Private Vehicle Print Language: Maltese Instructions: Normal Exam (ED) Additional Instructions: Call the vascular surgeon and your primary doctor that you were referred to at the other emergency department. They can determine if they need to repeat imaging at 48 hours. As we discussed in the emergency department, the reasons I would want you to return to the emergency department/closest ER as for significant chest pain with breathing, coughing up blood or other symptoms that are not normal to your anxiety. Referrals: [facility] [Outside, Vascular Surgery] - As needed Jaja Hanson, JIM [Primary Care Provider] - 1 week Discharge Date/Time: 12/02/24 17:13
--- OUTSIDE RECORDS SUMMARY | 2024-12-02 14:38 | XMS_ITS | Patient Health Record ---
Author Organization [facility] vices Address [address] [place], [place] [id number] Care Team Providers Care Tax Senior Associate Name Role Phone Shi King Primary Care Provider Yamile Willis Unavailable [phone] Allergies Allergen (clinical drug ingredient) Drug/Non Drug Allergy documented on EMR Reaction Allergy Type Onset Date Status SEASONAL ALLERGIES (uncoded)UnknownAllergyActivesulfamethoxazole / trimethoprim BactrimUnknownDrug AllergyActiveCodeine PhosphateUnknownDrug AllergyActive sumatriptanImitrexUnknownDrug AllergyActiveprochlorperazineProchlorperazine UnknownDrug AllergyActivezolmitriptanZomigUnknownDrug AllergyActiveSubstance with penicillin structure and antibacterial mechanism of action (substance) PenicillinsUnknownDrug AllergyActive Reason For Referral No Information Medications Medication SIG (Take, Route, Frequency, Duration) Notes Start Date End Date Status Metoprolol Succinate ER 25 MG 1 tablet Orally On ce a day ActivetiZANidine HCl 4 MG1 tablet as needed Orally Three times a dayActive Clotrimazole Athletes Foot 1 %1 application Externally Twice a day; Duration: 14 days45 grams4ActivePrelief 340 (65-50) MG (CA-P)as directed Orally ActiveLoratadine 10 MG1 tablet Orally Once a dayActiveOmeprazole 40 MG1 capsule 30 minutes before morning meal Orally Once a dayActiveOXcarbazepine 300 MG1 tablet Oral Twice a day; Duration: 30 daysActiveMirabegron ER 50 MG1 tablet Orally Once a dayActiveMelatonin 10 MGas directed OrallyActive Social History Tobacco Use: Social History Observation Description Date Details (start date - stop date) Never Smoker NA - NA Sex Assigned At : Social History Observation Description Sex Assigned At Female Tobacco Use/Smoking Question Answer Notes Tobacco use: nonsmoker patient enter ed data CAGE-AID Questionnaire (2018 Edition) Question Answer Notes Have you ever felt that you ought to cut down on your drinking or drug use? No patient entered data Have people annoyed you by c riticizing your drinking or drug use? No patient entered data Have you ever felt bad or gu ilty about your drinking or drug use? No patient entered data Have you ever had a drink or used drugs first thing in the morning to steady your nerves or to get rid of a hangover? No patient entered data CAGE-AID Score 0 InterpretationNegativePRAPARE Question Answer Notes Date Completed/Updated: 03/11/2023 han nt entered data What is your current housing situation? I have housing patient entered data Are you worried about losing your housing? No patient entered data What is the highest level of school that you have finished? More than high school patient entered data What is your current work situation? Otherwise unemployed but not seeking work (ex. student, retired, disabled, unpaid primary caregiver assisted living) patient entered data In the past year, have you o r any family members you live with been unable to get any of the following when it was really needed? Check all that apply I do not have problems meeting my needs Has lack of transportation kept you from medical appointments, meetings, work or from getting things needed for daily living?NoHow often do you see or talk to people that you care about and feel close to? (For example: talkingto friends on the phone, visiting friends or family, going to adventism or club meetings)Less than once a weekpatient entered dataHow stressed are you? Stress is when someone feels tense, nervous, anxious, or can't sleep at nightbecause their mind is troubledSomewhatpatient entered dataIn the past year have you spent more than 2 nights in a row in a intermediate, penitentiary, group home center, orjuvenile correctional facility?Nopatient entered dataAre you a refugee?Nopatient entered dataWhat country are you from?[place] Statespatient entered dataDo you feel physically and emotionally safe where you currently live?Unsurepatient entered dataIn the past year, have you been afraid of your partner or ex-partner?Yespatient entered dataPRAPARE Score:6 Problems Problem Type SNOMED Code ICD Code Onset Dates Problem Status W/U Status Risk Notes Problem Tobacco user (810611314) Cigaret te nicotine dependence without complication (F17.210) ActiveconfirmedProblemEpilepsy (45477121)Seizure disorder (345.90) (G40.909) Activeconfirmed -started noticing seizure like sxs in the past 2 years, once a month with intermittent recurrance for 2-3 days -per pt other people tell her that she was starring in the space and zooned out for few seconds to a minute -discussed and made Neurology referral for further evaluation and therapy, [facility] ProblemCarpal tunnel syndrome (62022226)Right carpal tunnel syndrome (G56.01) Activeconfirmed -pt counseled on use of wrist splint, MOISE protocol -no relief with NSAID and PO Prednisone -discussed and made referral to Gen Surgery for further evaluation and treatment, [facility] ProblemAttention deficit disorder (17223661)ADD (attention deficit disorder) (F98.8)Activeconfirmed -discussed and started on trial of Atomoxetine 40mg -f/u in 4 weeks or sooner with any concerns ProblemChondromalacia of patella (79747441)Chondromalacia, 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 Will give BZD,Description:Bipolar disorderProblemMajor depression, single episode (54010341)Depression motion (F32.9)08/02/2008ctiveconfirmed Description:Depressive disorderProblemDisorder, attention deficit (314.0) (314.0)08/02/2008ctiveconfirmedProblemAddison disease (792680041)[place] disease (E27.1)Activeconfirmed Comment:continue for now.,Story:dxn at OSH on Fludricortisoen . klor ., ProblemFunctional bowel disease (66479574)Functional bowel disease (K58.9) 11/20/2008ctiveconfirmedDescription:Irritable bowel syndromeProblemHemorrhoid (06522841)Hemorrhoid (K64.9)ActiveconfirmedDescription:HemorrhoidsProblemLow back pain (307357350)Lumbago (724.2) (724.2)08/23/2008ctiveconfirmedProblem Disorder of muscle, ligament, and fascia (728.89) (728.89)11/20/2008ctive confirmedProblemAbsence of bladder continence (900250799)Absence of bladder continence (R32)ActiveconfirmedComment:unclear etiology, pt has classic symptoms of UI, will start on oxybutynin trial,Description:Urinary incontinenceProblem Narcolepsy (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 could giv eher all her systematic sxs,,Story:she had extensive labs work up ,benedicto ,anti isbell ,electropforesisis she was started on Vit D and savella by rheum. she is supposed to start on a new meds and she does not want to take it for now, she has a recent dxn with Gentry Calvillo., ProblemBipolar affective disorder, mixed (296.6) (296.6)05/30/2008ctive confirmedProblemMixed anxiety and depressive disorder (213046862)Anxiety and depression (F41.8)Activeconfirmed Comment:she is on lamictal for mood stabilisation, works well for her she is also on savella for fibro rec ssri such as citalopram/ fluoxetine/ buspar- pt declined she did not want to try a med that she needs to take daily awaiting to get in to see Dr Contreras at [facility], ProblemArthralgia of the pelvic region and thigh (472267470)Pain in joint, pelvic region and thigh (459.45) (M25.551)Activeconfirmed Comment:needs to f/u at the [facility]- Dr Zuniga and Dr Ortiz for now, symptomatic control with pain meds, encouraged to f/u with them and she will consider sux option again.,Story[facility] worried about [facility] outcome. i talked to pt and convinced her to try to go for it bec she has yes commplication but her medical negative predicment is worth studying her options., ProblemDegeneration of lumbar intervertebral disc (32561217)Degeneration of lumbar or lumbosacral intervertebral disc (722.52) (722.52)Activeconfirmed Comment:continue pain mgmt . told pt to swim and treat herself with water. prioritise her medicla needs . she agreed. f/u in two weeks.,Story:she is on pain management . on multiple meds. she does not have fibromylagia due to her organic reasons to be in pain. she will continue wiht pain meds . but will try to taper savella and other drugs., ProblemChronic interstitial cystitis (424123598)Cystitis, chronic interstitial (595.1) (595.1)05/30/2008ctiveconfirmedProblemSolitary sacroiliitis (480862749) Sacroiliitis NEC (720.2) (720.2)ActiveconfirmedComment:check pelvis X-Ray, ProblemGeneralized anxiety disorder (20268062)Anxiety, generalized (F41.1) Inactiveconfirmed Comment:going for a holiday- [place]- nervous about crossing a bridge, also usually gets anxious/ stressed over the holidays she takes ativan prn, will prescribe 30 - to last throught he holidays,Description:Generalized anxiety disorder ProblemPrescription renewal (704866494)Medication refill (Z76.0)Inactive confirmedProblemObese (921825395)Obese (E66.9)InactiveconfirmedComment:Continue on TOpamax as initiated by Dr Pawel Lutz, pt already noticing weight loss with same and helping her migraine headaches at the same time.,Description:ObesityProblem Feces contents abnormal (295918484)Stool guaiac positive (792.1) (792.1)Inactive confirmedComment:refer for colonoscopy,ProblemGastroduodenitis (584595871) Gastritis and gastroduodenitis (K29.70)07/11/2008Problem resolvedconfirmed ProblemDizziness (901397270)Dizziness (R42)Problem resolvedconfirmed Comment:she had been seen by cardiology normal ECHO and stress test-no further workup per cardiolgy meds were adjusted as noted fludro was incr and atenolol was decreased, ProblemGastrointestinal hemorrhage (04979434)Bleeding gastrointestinal (578.9) (578.9)Problem resolvedconfirmedComment:likely d/t diverticulosis,Problem Infective otitis externa (78865386)Infectious otitis externa (H60.399)Problem resolvedconfirmedComment:Instructed to use all medications as prescribed, return if symptoms worsen or do not get better. Patient verbalizes and agrees with plan of care.,Description:OTITIS EXTERNA, INFECTIVEProblemAlopecia (30667372)Hair loss (704.00) (704.00)Problem resolvedconfirmed Comment:seborrhea vs psoriasis vs stress vs physiological telogen effluvium try ketoconazole f/u 6-8w, ProblemAnkle sprain (05212396)Ankle sprain (S93.409A)Problem resolvedconfirmed Comment:Lace up boot; no squatting, no prolonged standing in one position, no high heel footwear for 2-3 months. Re-assured patient about her benign condition,Description:Ankle sprain and strain ProblemPain in wrist (97877810)Pain in joint, forearm (719.43) (M25.539) 09/06/2008Problem resolvedconfirmed Comment:Conitnue NSaid Preventive patch and pain to the wrist to support. if it odes not work ofr two weeks whe need Wrist brace. f/u in two weeks,Story:wrisr b/l she has been stirriung more than usual and driving. she feels pain in her Lat aspect of wrist sharp and she i sgetting weaker that she can not twist her Jars. she is seeinf pain cliic for pain issues. timur is already on nsaid and she is here to see fi she has carpal tunnel. onPE she hac neg Tinnel and phalen .meenu tinglin or numbness and b/l wrist pain., ProblemChest pain (06102105)Chest pain (R07.9)07/11/2008Problem resolved confirmedProblemSpasm (25363115)Spasm, muscle (728.85) (728.85)Problem resolved confirmedComment:discussed stretches, heat and muscle relaxant to be used to help with spasm,ProblemAllergic rhinitis (36293232)Allergic rhinitis (J30.9) Problem resolvedconfirmedComment:continue on loratadine.,ProblemPalpitations (07490859)Awareness of heartbeats (R00.2)06/13/2008Problem resolvedconfirmed Description:PalpitationsProblemAbdominal pain (52920866)Abdominal pain (R10.9) Problem resolvedconfirmedComment:improved, was likely viral.,ProblemLateral epicondylitis (669512944)Epicondylitis, lateral (726.32) (726.32)09/06/2008 Problem resolvedconfirmedProblemExcessive sweating (84748821)Sweating increase (R61)Problem resolvedconfirmed Comment:?stress related for now, will monitor reassured, ProblemInsomnia (386082909)Cannot sleep (G47.00)09/06/2008Problem resolved confirmedDescription:InsomniaProblemBenign paroxysmal positional vertigo (282141516)BPPV (benign paroxysmal positional vertigo) (386.11) (386.11)Problem resolvedconfirmed Comment:dizziiness maybe due to vertigo try meclizine, ProblemPain in joint, lower leg (719.46) (719.46)10/19/2008Problem resolved confirmedProblemChronic allergic conjunctivitis (00655139)Chronic allergic conjunctivitis (H10.45)08/22/2009Problem resolvedconfirmedProblemLocal superficial swelling, mass or lump (R22.9)Problem resolvedconfirmed Description:Localized superficial swelling, mass, or lumpProblemConstipation (00476114)CN (constipation) (K59.00)Problem resolvedconfirmedComment:chronic (since childhood), refer to Dr Jimenez for colonoscopy. Start on miralax, fiber supplement and stool softener daily. F/U in 2 weeks, if BM's not daily, then t/c linzess vs amitiza.,Description:ConstipationProblemThoracic and lumbosacral neuritis (128195459)Thoracic or lumbosacral neuritis or radiculitis (724.4) (724.4)05/30/2008Problem resolvedconfirmedProblemContusion (109073883)Bruising (924.9) (924.9)Problem resolvedconfirmedComment:re-assured patient, she is sensitive to ASA, if has delbert bleeding via GI or epistaxis in addition to current scenario - will order PFA,Story:no hx of liver disease either - unlikely clottingdef or platelet dysfunction,ProblemMigraine (346.) (346)05/30/2008 Problem resolvedconfirmedProblemDiarrhea (03707263)D (diarrhea) (R19.7)Problem resolvedconfirmedComment:Check stool studies.,Description:DiarrheaProblem Bursitis (98998993)Bursitis disorder (727.3) (727.3)08/02/2008Problem resolved confirmedComment:improving,ProblemAcute bronchitis (disorder) (89738943) Bronchitis, acute (466.0) (466.0)Problem resolvedconfirmedProblemSinusitis, acute (461.) (461)09/20/2008Problem resolvedconfirmedProblemConjunctivitis, acute (372.0) (372.0)07/26/2009Problem resolvedconfirmedProblemNeck swelling (386130171)Neck swelling (R22.1)Problem resolvedconfirmedComment:recent labs in dec were normal for thyroid,ProblemArthralgia (20113225)Arthralgia (M25.50) Problem resolvedconfirmed Comment:rec chronic arthralgia of hands, knees, ankles, back, hips she is already f/u with ortho concerned about possibility of immune arthritis would like to be ref to rheum no repeat labs ordered today as she tested normal for RF, BENEDICTO, in 2008 no evidence of acute arthritis today so no imaging ordered, ProblemRight upper quadrant pain (739434764)Abdominal pain, right upper quadrant (789.01) (R10.11)07/11/2008Problem resolvedconfirmed Comment:if sever vomiting we told pt to go to ER. f/u with GI. She does not want to see niko murray another Doctor. she will call and check with Nurse desk.,Story:she has been having abdominal pain ,postprandial andfeeling nuaseous . this pain is sharp and sever located to R upper abd area and worse jorge post food intake. sever nausea but not vomintg .She feels tired and she is not constipated as before. loose stool but not bloody.some low grade fever and chills. worse today.abdominal u/s RUQ was unremarkable.CMP and CBC were normal.bdominal u/s RUQ was unremarkable.CMP and CBC were normal.CT abdomen, Stool O and P and stool WBC's .Coplete hepatic panel.amylase lipase all are normal. she is on conitnue w clear BRAT diet .tylenol prn pain. still waiting referral to GI, ProblemGastroesophageal reflux disease (886337824)Reflux, esophageal (530.81) (530.81)11/20/2008Problem resolvedconfirmed Comment:continue meds . diet precautions. f/u with GI for possible evaluation after she goes back to the [facility] in [place] for possible hip replacement.,Story:there could be a relaxed sphincter. she was fine on omeprazole 40 po daily. now sxs are worse . a lot of stress in her life. she is and take care pf six children together., ProblemMalaise and fatigue (881091466)Symptom, malaise and fatigue (780.7) (780.7)08/22/2009Problem resolvedconfirmed Encounters Encounter Location Date Provider Diagnosis [facility] [address] [place] [id number] 11/22/2024 Yamile Willis Plan Of Treatment Pending Test Test Name Order Date Culture, Stool (47675) 11/27/2011 Insurance Providers Payer Name Payer Address Payer Phone Subscriber Number Group Number Insured Name Patient Relationship to Insured Coverage Start Date Coverage End Date Medicare NGS PPS [address] [place], [place] [phone] [id number] Ayaz TruongBarbaraelf - patient is the [id number] 2011Medicaid [address] [place], [place] [id number], TruongBarbarakarolyn - patient is the [id number] 2019 Medical (General) History Medical History History ICD Code [place] disease, COMMENTS: dxn at OSH on Fludricortisoen . thor .Anxiety, generalized, DESCRIPTION: Generalized anxiety disorderBipolar affective disorder, mixed (296.6)BPPV (benign paroxysmal positional vertigo) (386.11)Degeneration of lumbar or lumbosacral intervertebral disc (722.52), COMMENTS: she is on pain management .on multiple meds.she does not have fibromylagia due to her organic reasons to be in pain.she will continue wi pain meds .but will try to taper savella and other drugs.Depression motion, DESCRIPTION: Depressive disorderEDS (Arden-Danlos syndrome) (756.83), COMMENTS: she had extensive labs work up ,benedicto ,anti isbell ,electropforesisisshe was started on Vit D and savella by rheum. she is supposed to start on a new meds and she does not want to take it for now,she has a recent dxn with Gentry Calvillo., ProblemStatus: Active, ,Fibromyalgia, COMMENTS: she saw rheumhad extensive labs work up ,benedicto ,anti isbell ,electropforesisisshe was started on Vit D and savella by rheum.prior to her dxn with Gentry Calvillo.so far, no indication of inflamm arthritisextensive lab work up.Functional bowel disease, DESCRIPTION: Irritable bowel syndromeArthritisBipolar disorderDepressionMigraine headaches Pain in joint, pelvic region and thigh (719.45), COMMENTS: refused sux by [facility].worried about its outcome.i talked to pt and convinced her to try to go for it bec she has yes commplication but her medical negative predicment is worth studying her options.Reflux, esophageal (530.81), COMMENTS: there could be a relaxed sphincter.she was fine on omeprazole 40 po daily.now sxs are worse .a lot of stress in her life.she is and take care pf six children together. Dizziness (resolved 12/16/2022)undefinedBleeding gastrointestinal (578.9) (resolved 12/16/2022)Hair loss (704.00) (resolved 12/16/2022)Ankle sprain (resolved 12/16/2022)Pain in joint, forearm (719.43) (resolved 12/16/2022)Spasm, muscle (728.85) (resolved 12/16/2022)Allergic rhinitis (resolved 12/16/2022) Abdominal pain (resolved 12/16/2022)Epicondylitis, lateral (726.32) (resolved 12/16/2022)Sweating increase (resolved 12/16/2022)BPPV (benign paroxysmal positional vertigo) (386.11) (resolved 12/16/2022)Chronic allergic conjunctivitis (resolved 12/16/2022)Local superficial swelling, mass or lump (resolved 12/16/2022)CN (constipation) (resolved 12/16/2022)Thoracic or lumbosacral neuritis or radiculitis (724.4) (resolved 12/16/2022)Bruising (924.9) (resolved 12/16/2022)Migraine (346.) (resolved 12/16/2022)Bursitis disorder (727.3) (resolved 12/16/2022)Neck swelling (resolved 12/16/2022) Arthralgia (resolved 12/16/2022)Abdominal pain, right upper quadrant (789.01) (resolved 12/16/2022)Reflux, esophageal (530.81) (resolved 12/16/2022)Gastritis and gastroduodenitis (resolved 11/21/2009)Infectious otitis externa (resolved 01/19/2012)Chest pain (resolved 11/21/2009)Awareness of heartbeats (resolved 11/21/2009)Cannot sleep (resolved 11/21/2009)Pain in joint, lower leg (719.46) (resolved 01/19/2012)D (diarrhea) (resolved 01/19/2012)Bronchitis, acute (466.0) (resolved 01/19/2012)Sinusitis, acute (461.) (resolved 11/21/2009) Conjunctivitis, acute (372.0) (resolved 11/21/2009)Symptom, malaise and fatigue (780.7) (resolved 11/21/2009)Surgical History Surgery Date(Month/Year) Lumpectomy, Right 02/2002 Colonoscopy LaparoscopyCesarean sectionright hip surgery, COMMENTS: repaired torn cartilidge 11/13/2010narciso fx [id number] tunnelEXTENSIVE HYSTERECTOMY- has 1 ovary 2007
--- OUTSIDE RECORDS SUMMARY | 2024-12-02 14:38 | XMS_ITS | Clinical Summary ---
Author Organization [facility] Address [facility] [place] [address] Care Team Providers Care Residential Real Estate Sales Manager Name Role Phone Unavailable Primary Care Provider Unavailabl e Allergies Active AllergyReactionsCriticalityNoted DateCommentsSulfamethoxazoleShortness of Edfsnf0508/29/2010 swelling CodeineShortness of Zifqdx2208/29/2010 swelling Prochlorperazine EdisylateShortness of Zdvend8608/29/2010 swelling SumatriptanShortness of Jwepez0508/29/2010 swelling PenicillinsShortness of Ieidyf0508/29/2010 swelling ZolmitriptanShortness of Cxmuip2908/29/2010 swelling Medications MedicationSigDispense QuantityRefillsLast FilledStart DateEnd DateStatus CALCIUM GLYCEROPHOSPHATE (PRELIEF ORAL) Take 2 tablets by mouth daily at bedtime.Active loratadine 10 mg tablet Take 10 mg by mouth once daily. Takes every dayActive MYRBETRIQ 50 mg Tb24 Take 50 mg by mouth daily at bedtime.Active omeprazole (PRILOSEC) 40 mg capsule Take 40 mg by mouth two times a day.Active tiZANidine (ZANAFLEX) 4 mg tablet Take 8 mg by mouth two times a day as needed. Takes at bedtime nightlyActive dextroamphetamine-amphetamine (ADDERALL) 10 mg tablet Take 10 mg by mouth once daily.0Active linaclotide (LINZESS) 145 mcg capsule Take 145 mcg by mouth once daily. Take capsule on an empty stomach at least 30 minutes before a meal at the same time each day. Capsule should be swallowed whole. DO NOT chew or crushActive guanFACINE (TENEX) 1 mg tablet Take 1 mg by mouth once daily.Active busPIRone (BUSPAR) 5 mg tablet Take 5 mg by mouth two times a day.Active melatonin 10 mg cap Take 10 mg by mouth daily at bedtime.Active lacosamide (VIMPAT) 100 mg tab Indications:Focal epilepsy (HCC)Take 1 tablet by mouth two times a day for 7 days. 14 tablet 12/01/2024 11:35 AM EDT1/5Active lacosamide (VIMPAT) 150 mg tab Indications:Focal epilepsy (HCC)Take 1 tablet by mouth two times a day for 180 days. Patient should start on December 05, 2024. 180 tablet /ctive clonazePAM orally disintegrating (KLONOPIN WAFER) 0.5 mg disintegrating tablet Indications:Focal epilepsy (HCC)Take one tablet as needed for 3 or more seizure/auras in 8 hours. Do not exceed 2 tablets in 24 hours. 10 tablet /ctive cholecalciferol, vitamin D3, (VITAMIN D3 ORAL) Take 2,000 Units by mouth once daily.11/28/2024Discontinued albuterol HFA (PROVENTIL HFA, VENTOLIN HFA) 90 mcg/actuation inhaler Inhale 2 Puffs as instructed every 6 hours as needed./ Discontinued(Other) ondansetron (ZOFRAN) 4 mg tablet Take 1 tablet by mouth every 8 hours as needed for nausea/vomiting. 6 tablet /Discontinued(Other) clonazePAM orally disintegrating (KLONOPIN WAFER) 0.5 mg disintegrating tablet Indications:Focal epilepsy (HCC)Take one tablet as needed at onset of aura/seizure. Do not exceed 2 tablets in 24 hours. 10 tablet Discontinued OXcarbazepine (TRILEPTAL) 600 mg tablet Indications:Partial epilepsy with impairment of consciousness (HCC)Take 1 tablet by mouth every morning AND 1.5 tablets daily at bedtime. 225 tablet //Discontinued clonazePAM orally disintegrating (KLONOPIN WAFER) 0.5 mg disintegrating tablet Indications:Focal epilepsy (HCC)Take one tablet as needed at onset of aura/seizure. Do not exceed 2 tablets in 24 hours. 10 tablet Discontinued Active Problems ProblemNoted DateDiagnosed UganXbtpmufdaqxs80/21/2025 Assessment & Plan (12/01/2024 7:31 AM EDT): Na 134 on admission lab work, can be side effect of Oxcarbazepine Results reviewed with patient - Will NOT resume Oxcarbazepine at discharge Assessment & Plan (2024 7:55 AM EDT): Na 134 on admission lab work, can be side effect of Oxcarbazepine Results reviewed with patient Assessment & Plan (11/29/2024 9:07 AM EDT): Na 134 on admission lab work, can be side effect of Oxcarbazepine Results reviewed with patient Adult ADHD07/08/2024 Assessment & Plan (12/01/2024 7:31 AM EDT): - Continue home Adderall ER 10 mg once daily - Do not carry home Guanfacine Assessment & Plan (2024 7:55 AM EDT): - Continue home Adderall ER 10 mg once daily - Do not carry home Guanfacine Assessment & Plan (11/29/2024 9:07 AM EDT): - Continue home Adderall ER 10 mg once daily - Do not carry home Guanfacine Assessment & Plan (11/29/2024 9:07 AM EDT): - Continue home Adderall ER 10 mg once daily - Do not carry home Guanfacine Focal vscckqyb51/01/2024 Assessment & Plan (12/01/2024 11:48 AM EDT): ASSESSMENT: 43 yo RH nonbinary (female at [...] 24 hours - Possible discharge later today Assessment & Plan (12/01/2024 11:49 AM EDT): ASSESSMENT: 43 yo RH nonbinary (female at [...] Lovenox 40 mg subcutaneously every 24 hours Assessment & Plan (11/29/2024 9:07 AM EDT): ASSESSMENT: 43 yo RH nonbinary (female at [...] Lovenox 40 mg subcutaneously every 24 hours Assessment & Plan (11/29/2024 9:07 AM EDT): ASSESSMENT: 43 yo RH nonbinary (female at [...] Lovenox 40 mg subcutaneously every 24 hours PTSD (post-traumatic stress disorder)07/09/2023 Assessment & Plan (12/01/2024 7:31 AM EDT): - SW assessment during admission Assessment & Plan (2024 7:55 AM EDT): - SW assessment during admission Assessment & Plan (11/29/2024 9:07 AM EDT): - SW assessment during admission Assessment & Plan (11/29/2024 9:07 AM EDT): - SW assessment during admission Sssffie7107/09/2023 Assessment & Plan (12/01/2024 7:31 AM EDT): - Continue home Buspar 5 mg BID Assessment & Plan (2024 7:55 AM EDT): - Continue home Buspar 5 mg BID Assessment & Plan (11/29/2024 9:07 AM EDT): - Continue home Buspar 5 mg BID Assessment & Plan (11/29/2024 9:07 AM EDT): - Continue home Buspar 5 mg BID Seizure-like gogglwwy53/29/2024Cannabis use, unspecified, uncomplicated 09/01/2019Chronic pgravsffyb89/23/2020Chronic migraine without aura without status migrainosus, not wnhxtexpowd11/23/2020MTHFR gene /11/2018 Arden-Danlos syndrome type III09/26/2013HTN (hypertension)11/08/2010GERD (gastroesophageal reflux disease)11/08/2010 Assessment & Plan (12/01/2024 7:31 AM EDT): - Home Omeprazole substituted with Pantoprazole based on pharmacy formulary Assessment & Plan (2024 7:55 AM EDT): - Home Omeprazole substituted with Pantoprazole based on pharmacy formulary Assessment & Plan (11/29/2024 9:07 AM EDT): - Home Omeprazole substituted with Pantoprazole based on pharmacy formulary Assessment & Plan (11/29/2024 9:07 AM EDT): - Home Omeprazole substituted with Pantoprazole based on pharmacy formulary Interstitial vffbsazc47/30/2011 Assessment & Plan (12/01/2024 7:31 AM EDT): History noted on admission Takes Mybetriq at home for OAB, substituted with Sanctura per formulary Reports dark urine, no other symptoms, lab work showed BUN and Cr WNL Continue to monitor symptoms Assessment & Plan (2024 7:55 AM EDT): History noted on admission Takes Mybetriq at home for OAB, substituted with Sanctura per formulary Reports dark urine, no other symptoms, lab work showed BUN and Cr WNL Continue to monitor symptoms Assessment & Plan (11/29/2024 9:07 AM EDT): History noted on admission Takes Mybetriq at home for OAB, substituted with Sanctura per formulary Reports dark urine, no other symptoms, lab work showed BUN and Cr WNL Continue to monitor symptoms Enhexyq6411/08/2010 Overview (11/08/2010): With positive tilt table testing in [place] many years ago, last syncope 8 years ago, Encounters DateTypeDepartmentCare VzfvTsrrpxluqta62/24/2025 Get Medical Advice Neurology [address] [phone] Erica Morrison MD I???m phngramen21/20/2025 11:02 AM EDT - 12/01/2024 4:17 PM EDTHospital Encounter HOSP MAIN [id number] [address] [place], [place] [id number] Jesus Alberto Uriostegui V, MD Neme Mercante, Silvia, MD Epilepsy, unspecified, not intractable, without status epilepticus (HCC) [G40.909] Discharge Disposition: Home11/28/20241418Pmaqus14/16/2025 Get Medical Advice Neurology [address] [phone] Theodore Jones APRN.SHEET TAILER Seizures are lqehgo4411/03/2024 Patient Msg Neurology [address] [place] [address] Provider, [facility] EMU Ulykngjro60/25/2025 Patient Msg Neurology [address] [place] [address] Provider, [facility] Schedule Xxksyymyz92/22/2025 Get Medical Advice Neurology [address] [phone] Erica Morrison MD Continued seizuresfrom Last 3 Months Family History Medical HistoryRelationCommentsDepressionBrotherbipolarBrotherHeart disease FatherHypertensionFatherDiabetesMaternal GrandfatherHypertensionMaternal GrandfatherArthritisMaternal GrandmotherAsthmaMaternal GrandmotherCOPDMaternal GrandmotherDiabetesMaternal GrandmotherHeart diseaseMaternal Grandmother HyperlipidemiaMaternal GrandmotherHypertensionMaternal GrandmotherIBSMaternal GrandmotherbipolarMaternal Grandmotherblood clotsMaternal GrandmotherArthritis MotherDiabetesMotherHyperlipidemiaMotherHypertensionMotherIBSMotherblood clots Motherdegenerative disc diseaseMotherheadachesMotherCancerPaternal Grandfather CancerPaternal GrandmotherHeart diseasePaternal GrandmotherRelationStatus CommentsBrotherAliveFatherAliveMaternal GrandfatherDeceasedMaternal Grandmother MotherAlivePaternal GrandfatherDeceasedPaternal GrandmotherDeceased Social History Tobacco UseTypesPacks/DayYears UsedDateSmoking Tobacco: NeverSmokeless Tobacco: Never Tobacco Cessation:Counseling Given: No Alcohol UseStandard Drinks/WeekCommentsNot Currently0 (1 standard drink = 0.6 oz pure alcohol)PHQ-2AnswerDate RecordedPHQ-2 toxmt012Hunger Vital Sign AnswerDate RecordedWithin the past 12 months, you worried [...] were you homeless or living in a mcfp (including now)?No11/29/2024HC UtilitiesAnswer Date RecordedIn the past 12 months has the electric, gas, oil, or water company threatened to shut off services in your home?No5Area Deprivation Index AnswerDate RecordedNational Score (1-100), lower number is lower risk92 07/02/2023State Score (1-10), lower number is lower yutz5274Data from: https://www.neighborhoodatlas.medicine.[facility].edu/. Last address used for itscamxrzdb[address] 4CommentsNoSex and Gender InformationValueDate RecordedSex Assigned at BirthNot on fileLegal SexFemale 01/11/2012 8:35 AM ESTGender IotphqziJfommmkfm77/20/2025 11:41 AM EDTSexual OrientationLesbian or Gay09/14/2023 10:48 AM EDT Last Filed Vital Signs Vital SignReadingTime TakenCommentsBlood Hmxhddbb355/7912/01/2024 11:29 AM EDT Wnyjk3516/23/2025 11:29 AM ROEFxihlxqbwrk99.7 ??C (98.1 ??F)12/01/2024 11:29 AM EDTRespiratory Lmbn7205 11:29 AM EDTOxygen Owvklbzozv021%12/01/2024 11:29 AM EDTInhaled Oxygen Concentration--Bssslx67.2 kg (148 lb 2.4 oz) 11/28/2024 11:18 AM BIRPhdsmx280.6 cm (5' 4 )11/28/2024 11:23 AM EDTBody Mass Index25.431 11:18 AM EDT Plan of Treatment DateTypeDepartmentCare Team (Latest Contact Info)Jlpgmgbjdwa02/05/2025 3:00 PM [facility] [address] [place] [address] Monse Johnson APRN.SHEET TAILER [address] [facility] [address] [place] [address] EMU Follow-up Visit04/14/2025 9:20 AM [facility] Neurology [address] [place] [address] Erica Morrison MD [address] [place] [address] EMU Follow upHealth MaintenanceDue DateLast DoneCommentsDTaP,Tdap,Td Vaccine (6 - Tdap), 11/26/1984, 06/12/1981, Additional history exists Annual PCP Team Chronic Disease Visit11/29/1997HIV Wovpfnttr58/21/1998Hepatitis C Bdcshtbwc81/21/1998Hepatitis B Vaccine (3 of 3 - 3-dose series)02/26/1998 12/11/1997, 11/06/1997Cervical Cancer Rkoqmaxfs77/21/2001HPV Vaccine (1 - 3-dose SCDM series)11/29/2006Medicare Annual Wellness Visit10/11/2011Mammogram Dflcvzzrn42/, 06/25/2022, 02/05/2022, Additional history exists Covid-19 Vaccine (2024- season)2024Influenza Vaccine (#1)[address] Swbswttinoso79/21/2025Cologuard (FIT-DNA)6512Zzjrurzcvks34/21/2025 1Colorectal Cancer Qbwmqxbqf25/21/2025Fecal Occult Blood11/29/2024 Fjsmsdtmkpclg01/21/2025Lipid Fnsoverdl79, 07/12/2020, 11/05/2018Diabetes Dpgtftmzw42, 10/11/2024, 06/03/2024, Additional history exists Procedures Procedure NamePriorityDate/TimeAssociated DiagnosisCommentsEPIL VEEG MONITORING ADULT ZBSUvllfma62/23/2025ECG CETTPSQPWsiprci32/22/2025 11:15 AM EDTEPIL VEEG MONITORING ADULT KZJUavwuiz64/22/2025EPIL VEEG MONITORING ADULT EMURoutine 11/29/2024OXCARBAZEPINE SMUHkdrb02/20/2025 7:25 PM EDT TSH HBCYtqqcym23/20/2025 7:25 PM EDT ACTIVATED PVQUiezrbg41/20/2025 7:25 PM EDT PROTHROMBIN YLBGBzrsbhu30/20/2025 7:25 PM EDT PHOSPHORUS GFXCXYVWTOcalqcx76/20/2025 7:25 PM EDT MAGNESIUM PPFQvbomvp37/20/2025 7:25 PM EDT COMPREHENSIVE METABOLIC NDRJXUqaaopu77/20/2025 7:25 PM EDT CBC + NSJNCodwzwf65/20/2025 7:25 PM EDT HCG QUAL HRINNV76 3:02 PM EDT TOX SCREEN ROUT HUOhxnajs69/20/2025 3:02 PM EDT EPIL VEEG MONITORING ADULT GNVThidemh41/20/2025EMMI WHAT TO EXPECT DURING YOUR HOSPITAL STAY11/04/2024 LUCIEN DIAG W AMARILIS BURQQAACPLlunrxq93/15/2024 3:17 PM EDT COLONOSCOPY - WJIWCMHCHGBsulaex60/02/2021 12:41 PM EST Generalized abdominal pain Weight loss from Last 3 Months or Most Recently Relevant to Health Maintenance Results * MAGNESIUM (11/28/2024 7:25 PM EDT)ComponentValueRef RangeTest MethodAnalysis TimePerformed AtPathologist SignatureMagnesium2.11.7 - 2.3 mg/dL11/28/2024 8:46 PM EDTCLEVELAND CLINIC MAIN LABSpecimen (Source)Anatomical Location / LateralityCollection Method / VolumeCollection TimeReceived TimeBloodBLOOD SPECIMEN / UnknownVenipuncture / Wksifsf10/ 7:25 PM EDT1 7:33 PM EDT Narrative Authorizing ProviderResult TypeResult StatusElinehal CERNASELECT SPECIALTY [facility] UPMCBORATORYFinal ResultPerforming OrganizationAddressCity/State/ZIP CodePhone Number [facility] [address] [phone], * (ABNORMAL) OXCARBAZEPINE BLD (11/28/2024 7:25 PM EDT)ComponentValueRef Range Test MethodAnalysis TimePerformed AtPathologist Jinzkuima89Vzfqlcnwqgnlakhokn 38.8(H)3.0 - 35.0 ug/mL2024 5:40 AM EDTCPARKVIEW HEALTH [facility]ONTPELIER [facility] MAIN LABComment: This test was developed, and its performance characteristics determined by the [facility] Department of Pathology and Laboratory Medicine. It has not been cleared or approved by the FDA. The [facility] Department of Pathology and Laboratory Medicine is regulated under CLIA as qualified to perform high-complexity testing. This test is used for clinical purposes. It should not be regarded as investigational or for research.Specimen (Source) Anatomical Location / LateralityCollection Method / VolumeCollection Time Received TimeBloodBLOOD SPECIMEN / UnknownVenipuncture / Vzylgpc6011/28/2024 7:25 PM EDT1 7:33 PM EDT Narrative Authorizing ProviderResult TypeResult StatusLesli PRAEDESBORATORYBeth David Hospitalal ResultPerforming OrganizationAddressCity/State/ZIP CodePhone Number [facility] [address] [phone], [place] * THYROID STIMULATING HORMONE (11/28/2024 7:25 PM EDT)ComponentValueRef Range Test MethodAnalysis TimePerformed AtPathologist SignatureTSH2.4100.270 - 4.200 mIU/L1 8:53 PM EDTCMEMORIAL HOSPITAL LABSpecimen (Source) Anatomical Location / LateralityCollection Method / VolumeCollection Time Received TimeBloodBLOOD SPECIMEN / UnknownVenipuncture / Krgjhap6811/28/2024 7:25 PM EDT1 7:33 PM EDT Narrative Authorizing ProviderResult TypeResult StatusElizamichael DEE-CLABORATORYFinal ResultPerforming OrganizationAddressCity/State/ZIP CodePhone Number [facility] [address] [place] [address], * PROTHROMBIN TIME (11/28/2024 7:25 PM EDT)ComponentValueRef RangeTest Method Analysis TimePerformed AtPathologist SignaturePT Sec10.49.7 - 13.0 sec 11/28/2024 7:50 PM EDTCPARKVIEW HEALTH MONTPELIER [facility] MAIN LABINR1.00.9 - 1.310/ 7:50 PM EDTCPARKVIEW HEALTH MONTPELIER [facility] MAIN LABComment: Vitamin K Antagonist (VKA) Therapeutic Range: INR 2 to 3 (Target INR of 2.5) Note: For patients treated with VKA drugs, such as warfarin, the [place] [employer] 2012 Guideline recommends [...] 2.5 to 3.5 (target INR of 3). Rosi GH, et al. Chest 2012, 141:7S-47S Sen RA, et al. [facility] 2017, 70: 252-289 Specimen (Source)Anatomical Location / LateralityCollection Method / Volume Collection TimeReceived TimeBloodBLOOD SPECIMEN / UnknownVenipuncture / Unknown 11/28/2024 7:25 PM EDT1 7:33 PM EDT Narrative Authorizing ProviderResult TypeResult StatusElizabeth Campos DEE-ROBERTATORYFinal ResultPerforming OrganizationAddressCity/State/ZIP CodePhone Number [facility] [address] [phone], * PHOSPHORUS INORGANIC (11/28/2024 7:25 PM EDT)ComponentValueRef RangeTest MethodAnalysis TimePerformed AtPathologist SignaturePhosphorus2.8mg/dL 11/28/2024 8:46 PM EDTCPARKVIEW HEALTH [facility]ONTPELI[facility] MAIN LABSpecimen (Source)Anatomical Location / LateralityCollection Method / VolumeCollection TimeReceived Time BloodBLOOD SPECIMEN / UnknownVenipuncture / Njfioro9711/28/2024 7:25 PM EDT 11/28/2024 7:33 PM EDT Narrative Authorizing ProviderResult TypeResult StatusElizabedali DEE-CLABORATORYFinal ResultPerforming OrganizationAddressCity/State/ZIP CodePhone Number [facility] [address] [place] [address], * (ABNORMAL) COMPREHENSIVE METABOLIC PANEL (11/28/2024 7:25 PM EDT)Component ValueRef RangeTest MethodAnalysis TimePerformed AtPathologist Signature Protein, Total7.16.3 - 8.0 g/dL11/28/2024 8:46 PM EDGEORGETOWN [facility] LAB Albumin4.53.9 - 4.9 g/dL11/28/2024 8:46 PM [facility] Calcium, Total9.28.5 - 10.2 mg/dL11/28/2024 8:46 PM [facility] LABBilirubin, Total0.30.2 - 1.3 mg/dL11/28/2024 8:46 PM [facility] LABAlkaline Loizdhwogvq1493 - 113 U/L1 8:46 PM [facility] XZWMOX47(L)14 - 40 U/L1 8:46 PM [facility] WRNSDK0558 - 54 U/L1 8:46 PM [facility] KEQVtrjvzu145 (H)74 - 99 mg/dL11/28/2024 8:46 PM [facility] LABComment: The [place] Diabetes Association (ADA) provides guidance for cutoff [...] Standards of Medical Care in Diabetes 2016, [place] [employer] Association. Diabetes Care. 2016.39(Suppl 1). BUN87 - 21 mg/dL11/28/2024 8:46 PM EDTCPARKVIEW [facility]ALTH [facility]PELI[facility] MAIN LABCreatinine0.67(L) 0.73 - 1.22 mg/dL11/28/2024 8:46 PM EDTCBLANCHARD VALLEY [facility] LNMGgbial407(L)136 - 144 mmol/L1 8:46 PM EDGEORGETOWN BE[facility]IORAL [facility] MAIN LABPotassium4.63.7 - 5.1 mmol/L1 8:46 PM EDTCPARKVIEW [facility] TIEHzyvbodh1350 - 107 mmol/L 11/28/2024 8:46 PM EDGEORGETOWN [facility]IORAL [facility] RFQOK76909 - 30 mmol/L1 8:46 PM EDGEORGETOWN BEHAVIORAL H[facility] MAIN LABAnion Mfz486 - 15 mmol/L1 8:46 PM EDGEORGETOWN BEHAVIORAL [facility]OS[facility] MAIN LABEstimated Glomerular Filtration Ctyp082>=60 mL/min/1.73m 11/28/2024 8:46 PM [facility] LABComment:Estimated Glomerular Filtration Rate (eGFR) [...] VolumeCollection TimeReceived TimeBloodBLOOD SPECIMEN / UnknownVenipuncture / Xktdcpc6911/28/2024 7:25 PM EDT1 7:33 PM EDT Narrative Authorizing ProviderResult TypeResult StatusElizabeth Campos DEE-CLABORATORYFinal ResultPerforming OrganizationAddressCity/State/ZIP CodePhone Number [facility] [address] [place] [address], * (ABNORMAL) COMPLETE BLOOD COUNT AND DIFFERENTIAL (11/28/2024 7:25 PM EDT) ComponentValueRef RangeTest MethodAnalysis TimePerformed AtPathologist SignatureWBC7.983.70 - 11.00 k/uL11/28/2024 7:54 PM EDTCLEVELAND CLINIC MAIN LABRBC4.08(L)4.20 - 6.00 m/uL11/28/2024 7:54 PM EDTCKET[facility] Jcgsdcjnie53.313.0 - 17.0 g/dL11/28/2024 7:54 PM EDTCKETTER[facility] LAB Trmsofovoc68.2(L)39.0 - 51.0 %11/28/2024 7:54 PM EDTCLEVELAND CLINIC [facility] LAB MCV93.680.0 - 100.0 fL11/28/2024 7:54 PM EDTCKET[facility] OMBGAJ08.6 26.0 - 34.0 pg11/28/2024 7:54 PM EDTCKET[facility] ZPWZKRL11.830.5 - 36.0 g/dL11/28/2024 7:54 PM EDTCKET[facility] LABRDW-CV12.311.5 - 15.0 %11/28/2024 7:54 PM EDTCKETTERING [facility] MA[facility] LABPlatelet Sujrx645(H)150 - 400 k/uL11/28/2024 7:54 PM EDTCKET[facility] LABMPV8.8(L)9.0 - 12.7 fL 11/28/2024 7:54 PM EDTCLEVELAND CLINIC MAIN LABNeutrophils %66.1%11/28/2024 7:54 PM EDTCKETTER[facility] LABAbs Neut5.281.45 - 7.50 k/uL11/28/2024 7:54 PM EDTCKET[facility] LABLymphocytes %27.3%11/28/2024 7:54 PM EDT [facility] LABAbs Lymph2.181.00 - 4.00 k/uL11/28/2024 7:54 PM EDT [facility] LABMonocytes %5.8%11/28/2024 7:54 PM EDTCKET[facility] LABAbs Mono0.46<0.87 k/uL11/28/2024 7:54 PM EDTCKET[facility] Eosinophils %0.1%11/28/2024 7:54 PM EDTCLEVELAND CLINIC MAIN LABAbs Eosin<0.03 <0.46 k/uL11/28/2024 7:54 PM EDTCKET[facility] LABBasophils %0.4% 11/28/2024 7:54 PM EDTCPARKVIEW [facility] MAIN LABAbs Baso0.03<0.11 k/uL 11/28/2024 7:54 PM EDTCKET[facility] LABImmature Granulocytes %0.3% 11/28/2024 7:54 PM EDTCPARKVIEW [facility] MAIN LABAbs Immature Gran<0.03<0.10 k/uL11/28/2024 7:54 PM EDTCKET[facility] LABNRBC0.0/100 WBC11/28/2024 7:54 PM EDTCPARKVIEW [facility] MA[facility] LABAbsolute nRBC<0.01<0.01 k/uL11/28/2024 7:54 PM EDTCPARKVIEW [facility] MAIN LABDiff HmfuVaro69/20/2025 7:54 PM EDT [facility] LABSpecimen (Source)Anatomical Location / Laterality Collection Method / VolumeCollection TimeReceived TimeBloodBLOOD SPECIMEN / UnknownVenipuncture / Dfpjnwe2411/28/2024 7:25 PM EDT1 7:33 PM EDT Narrative Authorizing ProviderResult TypeResult StatusElizabedali DEE-CLABORATORYFinal ResultPerforming OrganizationAddressCity/State/ZIP CodePhone Number [facility] [address] [place] [address], * ACTIVATED PARTIAL THROMBOPLASTIN TIME (11/28/2024 7:25 PM EDT)ComponentValue Ref RangeTest MethodAnalysis TimePerformed AtPathologist TvdmnvsloHLUJ72.823.0 - 32.4 sec11/28/2024 7:50 PM EDTCPARKVIEW [facility] LABSpecimen (Source) Anatomical Location / LateralityCollection Method / VolumeCollection Time Received TimeBloodBLOOD SPECIMEN / UnknownVenipuncture / Igltayw6811/28/2024 7:25 PM EDT1 7:33 PM EDT Narrative [facility] - 11/28/2024 7:50 PM EDT Unfractionated [...] of laboratory APTT reagentin use throughout the [facility]. Authorizing ProviderResult TypeResult StatusElizabeth Campos DEE-CLABORATORYFinal ResultPerforming OrganizationAddressCity/State/ZIP CodePhone Number [facility] [address] [place] [address], * (ABNORMAL) TOXICOLOGY SCREEN, ROUTINE URINE (11/28/2024 3:02 PM EDT)Component ValueRef RangeTest MethodAnalysis TimePerformed AtPathologist Signature Amphetamines, NicrwJedgwfofOooypcnq71/20/2025 4:55 PM EDTCPARKVIEW [facility] MAIN LABComment:Cutoff threshold at 1000 ng/mL.Barbiturates, UrineNegativeNegative 11/28/2024 4:55 PM EDGEORGETOWN BEHAVIORAL [facility]OSPITAL MAIN LABComment:Cutoff threshold at 200 ng/mL.Benzodiazepines, UznhzOvqjjiweOpvlnioy81/20/2025 4:55 PM EDGEORGETOWN BEHAVIORAL HOSPITAL MAIN LABComment:Cutoff threshold at 200 ng/mL.Cannabinoids, Urine Preliminary positive(A)Rwrdypwf78/20/2025 4:55 PM EDGEORGETOWN [facility]IORAL [facility] LAB Comment:Cutoff threshold at 50 ng/mL.Cocaine, XwiwdFdvluyknLkixczay79/20/2025 4:55 PM EDGEORGETOWN BEHAVIORAL HOSPITAL MAIN LABComment:Cutoff threshold at 300 ng/mL. Ethanol, Urine<11<11 mg/dL11/28/2024 4:55 PM EDTCKETTERING [facility] Fentanyl, SrviwNirozhmwCfnxbxth60/20/2025 4:55 PM EDGEORGETOWN [facility] LAB Comment:Cutoff threshold at 5 ng/mL.Opiates, ZupzmUkihlfhlSgmhrmls79/20/2025 4:55 PM EDGEORGETOWN [facility]HAVIORAL HOSPITAL MAIN LABComment:Cutoff threshold at 300 ng/mL. Oxycodone, WfjuuZysoguifAtjgatjb21/20/2025 4:55 PM [facility] LABComment:Cutoff threshold at 100 ng/mL.Phencyclidine, UrineNegativeNegative 11/28/2024 4:55 PM [facility]:Cutoff threshold at 25 ng/mL.Specimen (Source)Anatomical Location / LateralityCollection Method / VolumeCollection TimeReceived TimeUrineURINE SPECIMEN / UnknownNon Blood / Inxecgi3811/28/2024 3:02 PM EDT1 3:11 PM EDT Narrative [facility] - 11/28/2024 4:55 PM EDT Immunoassay [...] on the same specimen through Client Services ([phone]) if contacted within 48 hours of initial testing. [1]Substance Abuse and Mental Health Services Administration (2012). Clinical Drug Testing in Primary Care Technical Assistance Publication Series 32. Department of Health and Human Services, [place], p.10. Authorizing ProviderResult TypeResult StatusElizabeth Campos DEE-CLABORATORYFinal ResultPerforming OrganizationAddressCity/State/ZIP CodePhone Number [facility] [address] [place] [address], * HCG, QUALITATIVE, URINE (11/28/2024 3:02 PM EDT)ComponentValueRef RangeTest MethodAnalysis TimePerformed AtPathologist SignatureHCG Qualitative, WbxreEsnwhhdaNtakqnqx75/20/2025 3:54 PM [facility] LABComment: This test is intended to aid in the early detection of . Very dilute urine samples, as indicated by a low specific gravity, may not contain in home sales representative levels of hCG. This test [...] TimeReceived TimeUrineURINE SPECIMEN / UnknownNon Blood / Ivvqxvs2811/28/2024 3:02 PM EDT1 3:12 PM EDT Narrative Authorizing ProviderResult TypeResult StatusElizabedali DEE-CLABORATORYFinal ResultPerforming OrganizationAddressCity/State/ZIP CodePhone Number [facility] [address] [place] [address], * [facility] WHAT TO EXPECT DURING YOUR HOSPITAL STAY (11/04/2024)Specimen (Source) Anatomical Location / LateralityCollection Method / VolumeCollection Time Received Time11/04/2024 Narrative [facility] - 11/29/2024 Provider TAMY your patient IDA JACOME has not started their Cristofer program, time has . [facility] program: [employer]AF[employer] PATIENT VIDEO Authorizing ProviderResult TypeResult StatusAndNOAH VaughnMIFinal ResultPerforming OrganizationAddressCity/State/ZIP CodePhone Number [facility] * LUCIEN DIAG W AMARILIS BILATERAL (08/24/2023 3:17 PM EDT)Anatomical RegionLaterality ModalityBreastBilateralMammographySpecimen (Source)Anatomical Location / LateralityCollection Method / VolumeCollection TimeReceived Time08/24/2023 3:17 PM EDT Impressions 08/24/2023 4:15 PM EDT IMPRESSION: INCOMPLETE: NEEDS ADDITIONAL IMAGING EVALUATION There is no abnormality seen in the right breast to correspond with the palpable abnormality at 8 o'clock, however, ultrasound is recommended. ?? There is no abnormality seen in the right breast to correspond with the pain at 3 o'clock, however, ultrasound is recommended. ??There is no abnormality seen in the left breast to correspond with the palpable abnormality at 9 o'clock, however, ultrasound is recommended. ??There is no abnormality seen in the left breast to correspond with the pain at 3 o'clock, however, ultrasound is recommended. SUMMARY: BILATERAL ULTRASOUNDS WERE PERFORMED TODAY, AND WILL BE DICTATED SEPARATELY. Latosha sifuentes/jamey:08/24/2023 16:14:52 Surveillance Agent(s): Stephani ??RT Rachelle(R)(M), [facility] Mammogram BI-RADS: 0 Incomplete: needs additional imaging evaluation Multiple national specialty organizations have released breast cancer screening guidelines for women at average risk for developing breast cancer - guidelines that are based on both evidence and opinion, yet differ on when to start and how often to screen for breast cancer. With representation from Breast Imaging, Internal Medicine, Women's Health, Family Medicine, and Medical/Surgical Oncology, the [facility] has carefully reviewed the data and reached the following consensus: 1) All women should engage in shared decision-making with their providers to decide when to start and how often to screen; 2) All women should have the opportunity to start screening mammography at age 40; 3) For women ages 45-55, we recommend annual screening mammograms; 4) For women ages 55 and over, we support both the transition from an annual to a biennial interval if this aligns more with patient's values and preferences, or continuation with annual screening; 5) All women should discuss with their providers when to stop screening mammograms. Art Dealer: Jamey Transcribe Date/Time: Aug 24 2023 ??2:45P Dictated by: LATOSHA CARABALLO MD This examination was interpreted and the report reviewed and electronically signed by: LATOSHA CARABALLO MD on Aug 24 2023 ??4:14PM ??EST Narrative 08/24/2023 4:15 PM EDT * * *Final Report* * * DATE OF EXAM: Aug 24 2023 ??3:17PM ?? [facility] ?? 0627 ??- ??LUCIEN DIAG W AMARILIS AMPARO ??/ PROCEDURE REASON: multiple diagnoses ? * * * * Physician Interpretation * * * * RESULT: #[id number] - LUCIEN DIAG W AMARILIS AMPARO BILATERAL DIGITAL DIAGNOSTIC MAMMOGRAM TOMOSYNTHESIS WITH CAD: 08/24/2023 HISTORY: Multiple Diagnoses. Bilateral breast pain. Right diffuse pain. Left focal pain /SEE TECH NOTE. RESULT: TECHNIQUE: The study was acquired using full field digital technology and interpreted from soft copy. Digital Breast Tomosynthesis (DBT) images were obtained and used to assist in the interpretation of this examination. Current study was also evaluated with a Computer Aided Detection (CAD). Comparison is made to exams dated: 02/05/2022 mammogram, 06/25/2022 mammogram, 06/25/2022 ultrasound, and 06/25/2022 ultrasound - [facility]. ??The breasts are heterogeneously dense, which may obscure small masses. No significant masses, calcifications, or other findings are seen in either breast. Procedure Note Provider, [facility] - 08/24/2023 * * *Final Report* * * DATE OF EXAM: Aug 24 2023 3:17PM [facility] 0627 - LUCIEN BEATRICEPatricio Carter AMARILIS AMPARO / PROCEDURE REASON: multiple diagnoses * * * * Physician Interpretation * * * * RESULT: #[id number] - LUCIEN DIAG W AMARILIS AMPARO BILATERAL DIGITAL DIAGNOSTIC MAMMOGRAM TOMOSYNTHESIS WITH CAD: 08/24/2023 HISTORY: Multiple Diagnoses. Bilateral breast pain. Right diffuse pain. Left focal pain /SEE TECH NOTE. RESULT: TECHNIQUE: The study was acquired using full field digital technology and interpreted from soft copy. Digital Breast Tomosynthesis (DBT) images were obtained and used to assist in the interpretation of this examination. Current study was also evaluated with a Computer Aided Detection (CAD). Comparison is made to exams dated: 02/05/2022 mammogram, 06/25/2022 mammogram, 06/25/2022 ultrasound, and 06/25/2022 ultrasound - [facility]. The breasts are heterogeneously dense, which may obscure small masses. No significant masses, calcifications, or other findings are seen in either breast. IMPRESSION IMPRESSION: INCOMPLETE: NEEDS ADDITIONAL IMAGING EVALUATION There is no abnormality seen in the right breast to correspond with the palpable abnormality at 8 o'clock, however, ultrasound is recommended. There is no abnormality seen in the right breast to correspond with the pain at 3 o'clock, however, ultrasound is recommended. There is no abnormality seen in the left breast to correspond with the palpable abnormality at 9 o'clock, however, ultrasound is recommended. There is no abnormality seen in the left breast to correspond with the pain at 3 o'clock, however, ultrasound is recommended. SUMMARY: BILATERAL ULTRASOUNDS WERE PERFORMED TODAY, AND WILL BE DICTATED SEPARATELY. Latosha sifuentes/jamey:08/24/2023 16:14:52 Surveillance Agent(s): RT Manjinder(Yessi)(M), [facility] Mammogram BI-RADS: 0 Incomplete: needs additional imaging evaluation Multiple national specialty organizations have released breast cancer screening guidelines for women at average risk for developing breast cancer - guidelines that are based on both evidence and opinion, yet differ on when to start and how often to screen for breast cancer. With representation from Breast Imaging, Internal Medicine, Women's Health, Family Medicine, and Medical/Surgical Oncology, the [facility] has carefully reviewed the data and reached the following consensus: 1) All women should engage in shared decision-making with their providers to decide when to start and how often to screen; 2) All women should have the opportunity to start screening mammography at age 40; 3) For women ages 45-55, we recommend annual screening mammograms; 4) For women ages 55 and over, we support both the transition from an annual to a biennial interval if this aligns more with patient's values and preferences, or continuation with annual screening; 5) All women should discuss with their providers when to stop screening mammograms. Art Dealer: Jamey Transcribe Date/Time: Aug 24 2023 2:45P Dictated by: LATOSHA CARABALLO MD This examination was interpreted and the report reviewed and electronically signed by: LATOSHA CARABALLO MD on Aug 24 2023 4:14PM EST Authorizing ProviderResult TypeResult StatusDaad Tal DEE-CMAM-PAMA Final Result * COLONOSCOPY - DIAGNOSTIC (04/10/2020 12:41 PM EST)ComponentValueRef RangeTest MethodAnalysis TimePerformed AtPathologist AjniryxpnBzrinylyohfkzK72 Gastrointestinal Endoscopy Patient Name: Ida Jacome Procedure Date: 04/10/2020 12:41 PM Date of : 1980 Admit Type: Outpatient Age: 39 Room: A31 Procedure [facility] Gender: Female Note Status: Finalized Attending MD: Axel Negrete MD Procedure: ?Upper GI endoscopy Indications: ?Epigastric abdominal pain Providers: ?Axel Negrete MD Patient Profile: ?This is a 39 year old female. Refer to note in ?patient chart for documentation of history and ?physical. Referring Physician: Medicines: ?Midazolam 4 mg IV, Fentanyl 100 micrograms IV Complications: ?No immediate complications. Requesting Provider: Procedure: ?Pre-Anesthesia Assessment: ?- Prior to the procedure, a History and Physical was ?performed, and patient medications and allergies ?were reviewed. The patient is competent. The risks ?and benefits of the procedure and the sedation ?options and risks were discussed with the patient. ?All questions were answered and informed consent was ?obtained. Patient identification and proposed ?procedure were verified by the physician in the ?pre-procedure area. Mental Status Examination: alert ?and oriented. Airway Examination: normal ?oropharyngeal airway and neck mobility. Respiratory ?Examination: clear to auscultation. CV Examination: ?normal. Prophylactic Antibiotics: The patient does ?not require prophylactic antibiotics. Prior ?Anticoagulants: The patient has taken no previous ?anticoagulant or antiplatelet agents. ASA Grade ?Assessment: II - A patient with mild systemic ?disease. After reviewing the risks and benefits, the ?patient was deemed in satisfactory condition to ?undergo the procedure. The anesthesia plan was to ?use moderate sedation / analgesia (conscious ?sedation). Immediately prior to administration of ?medications, the patient was re-assessed for ?adequacy to receive sedatives. The heart rate, ?respiratory rate, oxygen saturations, blood ?pressure, adequacy of pulmonary ventilation, and ?response to care were monitored throughout the ?procedure. The physical status of the patient was ?re-assessed after the procedure. ?After obtaining informed consent, the endoscope was ?passed under direct vision. Throughout the ?procedure, the patient's blood pressure, pulse, and ?oxygen saturations were monitored continuously. The ?Endoscope was introduced through the mouth, and ?advanced to the second part of duodenum. The upper ?GI endoscopy was accomplished without difficulty. ?The patient tolerated the procedure well. Moderate Sedation: ? The administration of moderate sedation was initiated at 13:15 PM. ? Moderate (conscious) sedation was administered by the endoscopy nurse ? and supervised by the endoscopist. The following parameters were ? monitored: oxygen saturation, heart rate, blood pressure, and ? response to care. Findings: ? The examined esophagus was normal. ? The entire examined stomach was normal. Biopsies were taken with a ? cold forceps for Helicobacter pylori testing. ? The examined duodenum was normal. Biopsies for histology were taken ? with a cold forceps for evaluation of celiac disease. Impression: ? - Normal esophagus. ?- Normal stomach. Biopsied. ?- Normal examined duodenum. Biopsied. Estimated Blood Loss: Estimated blood loss: none. Recommendation: ? - Await pathology results. ?- Return to referring physician as previously ?scheduled. Attending Participation: ? I personally performed the entire procedure. Scope In: 1:21:26 PM Scope Out: 1:26:51 PM MD Axel Zuñiga MD 04/10/2020 1:33:38 PM This report has been signed electronically by Axel Negrete MD Number of Addenda: 0 Note Initiated On: 04/10/2020 12:41 PMDIGESTIVE DISEASE INSTITUTEAnatomical Region LateralityModalityOtherSpecimen (Source)Anatomical Location / Laterality Collection Method / VolumeCollection TimeReceived Time04/10/2020 12:41 PM EST Narrative Authorizing ProviderResult TypeResult StatusRadha Zhu APRN.CNPDIGESTIVE DISEASEFinal Result from Last 3 Months or Most Recently Relevant to Health Maintenance Insurance * Guarantor: Ida Jacome TypeRelation to PatientDate of BirthPhone Billing AddressPersonal/JyyvwhOzjy93/21/1981 na (Home) na (Work) [address] [place] [address] MemberSubscriberPlan / Payer (Effective 2020-Present)Name:Ida Jacome Relation to Subscriber:SelfName:Ida Jacome Payer ID:Not on file Group ID:Not on file Type:Medicaid Address: [place] [id number]
--- OUTSIDE RECORDS SUMMARY | 2024-12-02 14:38 | XMS_ITS | Clinical Summary ---
Author Organization [facility] Address [address] [place] [address] Phone Care Team Providers Care Loss Prevention Analyst Name Role Phone Unavailable Primary Care Provider Unavailabl e Social History Tobacco UseTypesPacks/DayYears UsedDateSmoking Tobacco: Never Assessed CommentsUnknownSex and Gender InformationValueDate RecordedSex Assigned at Not on fileLegal AkxIqmpfl37/26/2022 7:14 AM ESTGender IdentityNot on fileSexual OrientationNot on file Last Filed Vital Signs Vital SignReadingTime TakenCommentsBlood Opfsdbym811/8309 1:40 PM EDT Ywulk7329 1:40 PM ZBMThsghljxhmk05.6 ??C (97.9 ??F)10/30/2021 1:40 PM EDTRespiratory Rbkm6888 1:40 PM EDTOxygen Saturation--Inhaled Oxygen Concentration--Syteyl88.7 kg (129 lb 5 oz)10/30/2021 1:40 PM VRNHafkvi546.6 cm (5' 4 )10/30/2021 1:40 PM EDTBody Mass Index22.209 1:40 PM EDT Plan of Treatment Not on file
--- OUTSIDE RECORDS SUMMARY | 2024-12-02 14:38 | XMS_ITS | Encounter Summary ---
Author Organization [facility] Address [id number] [address] [place] [address] Care Team Providers Care Couturiere Name Role Phone Jaja Hanson CONCERT PIANIST-SECURITY SITE SUPERVISOR Primary Care Provider + Encounter Details DateTypeDepartmentCare Team (Latest Contact Info)Ldipndkkkqd53/23/2025Travel Social History Tobacco UseTypesPacks/DayYears UsedDateSmoking Tobacco: NeverSmokeless Tobacco: NeverAlcohol UseStandard Drinks/WeekCommentsNot Currently0 (1 standard drink = 0.6 oz pure alcohol)ChildcareAnswerDate MhljgheuYbizwdlgkHhfourj38/04/2019 EmploymentAnswerDate GwfijphkLngingdmfhZetkjto92/04/2019Hunger ScreeningAnswer Date RecordedWithin the past 12 months we worried whether our food would run out before we got money to buy more.Never True12/01/2024Within the past 12 months the food we bought just didn't last and we didn't have money to get more.Never True12/01/2024Purpose - LifeAnswerDate RecordedPurpose and direction in life Ydonvzr1902/22/2020CommentsNoSex and Gender InformationValueDate Recorded Sex Assigned at WfapeUobxft31/22/2023 12:54 PM EDTLegal ZgzBuoqhv74/06/2015 11:32 AM EDTGender IdentityNON-RWVMDW3212/25/2021 12:52 PM ESTSexual Orientation Choose not to vedulxyp76/22/2023 10:50 AM EDTdocumented as of this encounter Plan of Treatment DateTypeDepartmentCare Team (Latest Contact Info)Ybwiwoiokch45/14/2026 1:15 PM EDTOffice Visit [facility] [address] [place] [address] [address] [facility] [place] [phone] Ida Casanova I, PA [address] [place] [id number] documented as of this encounter Goals GoalPatient Goal TypeAssociated ProblemsRecent ProgressPatient-Stated?Author <enter goal here> Ling Del Toro RN Note: Evaluation of progress towards goal: home self care and family support documented as of this encounter Visit Diagnoses Not on filedocumented in this encounter Care Teams Team MemberRelationshipSpecialtyStart DateEnd Date Jaja Hanson, CONCERT PIANIST-SECURITY SITE SUPERVISOR [address] [place] [address] PCP - GeneralNurse Practitioner09/07/23documented as of this encounter
--- OUTSIDE RECORDS SUMMARY | 2024-12-02 14:38 | XMS_ITS | Encounter Summary ---
Author Organization [facility] Address [id number] [address] [place] [address] Care Team Providers Care Field Crop Harvest Worker Name Role Phone Jaja Hanson STOCK WETTER-CLINICAL AIDE Primary Care Provider + Encounter Details DateTypeDepartmentCare Team (Latest Contact Info)Dpoepsridmr07/13/2025Travel Social History Tobacco UseTypesPacks/DayYears UsedDateSmoking Tobacco: NeverSmokeless Tobacco: NeverAlcohol UseStandard Drinks/WeekCommentsNot Currently0 (1 standard drink = 0.6 oz pure alcohol)ChildcareAnswerDate JnrvvnifDtqscfsseOasezpw36/04/2019 EmploymentAnswerDate SqgtlxezDluatubzzoBkfltho77/04/2019Hunger ScreeningAnswer Date RecordedWithin the past 12 months we worried whether our food would run out before we got money to buy more.Never True11/15/2024Within the past 12 months the food we bought just didn't last and we didn't have money to get more.Never True11/15/2024Purpose - LifeAnswerDate RecordedPurpose and direction in life Vkrecbl64/13/2021CommentsNoSex and Gender InformationValueDate Recorded Sex Assigned at JnppuKfogvp07/22/2023 12:54 PM EDTLegal HqrPezthh57/06/2015 11:32 AM EDTGender IdentityNON-ZIWIMO3112/25/2021 12:52 PM ESTSexual Orientation Choose not to fvrynjqv06/22/2023 10:50 AM EDTdocumented as of this encounter Plan of Treatment DateTypeDepartmentCare Team (Latest Contact Info)Vloasjdeimi72/14/2026 1:15 PM EDTOffice Visit [facility] [address] [place] [address] [address] [facility] [place] [phone] Ida Casanova I, PA [address] [place] [id number] documented as of this encounter Goals GoalPatient Goal TypeAssociated ProblemsRecent ProgressPatient-Stated?Author <enter goal here> Ling Del Toro RN Note: Evaluation of progress towards goal: home self care and family support documented as of this encounter Visit Diagnoses Not on filedocumented in this encounter Care Teams Team MemberRelationshipSpecialtyStart DateEnd Date Jaja Hanson, STOCK WETTER-CLINICAL AIDE [address] [place] [address] PCP - GeneralNurse Practitioner09/07/23documented as of this encounter
--- OUTSIDE RECORDS SUMMARY | 2024-12-02 14:38 | XMS_ITS | Clinical Summary ---
Author Organization [employer] s tem Address [id number] [address] [place] [address] Care Team Providers Care Parts Identifier Name Role Phone Jaja Hanson MACADAM RAKER-JAVA [employer] DEVELOPER Primary Care Provider + Allergies Active AllergyReactionsCriticalityNoted DateComments Sulfamethoxazole-XnyyitpadxuuZldwx08/24/1877SshtbemSzvaUrl36/24/2017 Prochlorperazine Zgkphpmbs03/16/7192QvqtnyxdupqDjkuLza02/24/2017Phenothiazines 05/02/2016SulfamethoxazoleShortness Of JcgigsWokx16/21/2011 swelling Sumatriptan SuccinateShortness Of Breath,Other (See Comments),SwellingHigh 05/02/2016ZolmitriptanShortness Of WmuaetPids18/24/2017 Medications * This document contains information received from the source organization and may not represent a complete record from that organization. MedicationSigDispense QuantityRefillsLast FilledStart DateEnd DateStatus omeprazole (PriLOSEC) 40 mg capsule Take 1 capsule (40 mg total) by mouth every morning before breakfast.Active LORATADINE ORAL Take by mouth in the morning.Active NON FORMULARY Medical rbonlusmx92/06/2020Active calcium glycerophosphate (PRELIEF ORAL) Take by mouth in the morning.Active tiZANidine (ZANAFLEX) 4 mg tablet Take 1 tablet (4 mg total) by mouth 2 (two) times a day as needed for muscle spasms. 60 tablet ctive MELATONIN ORAL Take by mouth nightly.Active albuterol (PROVENTIL HFA;VENTOLIN HFA) 90 mcg/actuation inhaler Indications:History of asthmaInhale 2 puffs every 6 (six) hours as needed for wheezing. 18 g 1103Active Additional Information Patient not taking.Reported on 11/15/2024 oxcarbazepine (TRILEPTAL ORAL) Take 600 mg by mouth in the morning and 600 mg before bedtime.Active guanfacine HCl (GUANFACINE ORAL) Take by mouth.Active busPIRone (BUSPAR) 5 mg tablet Take 1 tablet (5 mg total) by mouth in the morning and 1 tablet (5 mg total) before bedtime.Active amphetamine-dextroamphetamine XR (ADDERALL XR) 30 mg 24 hr capsule Take 1 capsule (30 mg total) by mouth every morning.Active MYRBETRIQ 50 mg tablet extended release 24 hr TAKE 1 TABLET(50 MG) BY MOUTH IN THE MORNING 90 tablet 5Active LINZESS 145 mcg capsule Take 1 capsule (145 mcg total) by mouth every morning before breakfast. 5Active lacosamide (VIMPAT) 100 mg tablet Take 1 tablet (100 mg total) by mouth in the morning and 1 tablet (100 mg total) before bedtime.Active Active Problems ProblemNoted DateDiagnosed DateAdult ADHD07/08/2024Seizure ufxgxgjc02/18/2025 History of hrqkdj6807/03/2022NSTEMI (non-ST elevated myocardial infarction) 04/29/2022issociative /07/2023Major depressive disorder, recurrent episode, tumgasam34/07/2023Lumbosacral spondylosis without embnyrguda69/16/2021 Overview (04/24/2020): Added automatically from request for surgery [id number] Abnormal facial hair08/02/2019Asthma, mild08/02/2019Bilateral carpal tunnel /23/2020Chronic jldrbqxjki39/23/2020Chronic migraine without aura without status migrainosus, not ykpzykzykgw08/23/2020Connective tissue disease 08/02/2019Constipation, xrltaxz7608/02/2019Cyst of breast, right, diffuse nyoeinodeko26/23/2020Family history of blood clots08/02/20190806Obeiygf02/23/2020 Vtazmswdvthe00/23/2020Genital herpes in women08/02/2019Genital lesion, female 08/02/2019Hot lumvnoa0408/02/2019Menopausal nnionyxg11/23/2020Increased frequency of etearfvjc54/23/2020Vulvar hitnkp3508/02/2019RUQ abdominal pain08/02/2019POTS (postural orthostatic tachycardia syndrome)08/02/2019Posterior vaginal wall kumxovlx48/23/2020Other disturbances of skin pluaxuxnt05/23/2020Obesity (BMI 30-39.9)08/02/2019Cervical spondylosis without vdkkuxhuoo53/10/2020 Overview (04/19/2019): Added automatically from request for surgery [id number] Disorder of risxxu7501/19/20193394Sirlmauuv63/10/2019 Overview (11/25/2022): 01/18/19: Painless gross hematuria. Ct negative. Plan for cysto. The risks and benefits as outlinedin the consent were discussed. All relevant drawings were reviewed. All questions were answered. The patient expressed understanding and wished to proceed 02/22/19: Cysto normal 10/08/22: Recent gross hematuria and pain with urination. CT and C&S negative. Still seeing blood daily. Agrees to cystoscopy/[facility] under local. 11/25/22: Cysto, [facility] instillation. Cystoscopy was normal. She is continuing to have some double voiding. Significant constipation which needs to be addressed Interstitial muydrkae60/10/2019 Overview (11/15/2024): 01/18/19: Hx of IC - cysto with hydrodistention 2011 with relief for 1 month Had used Elmiron but no longer covered by insurance. Trial oxybutynin 5 mg 2015 - dry mouth Using Prelief and myrbetriq 50 mg Plan pelvic floor therapy 10/08/22: Has been off medication. Interested in restarting Myrbetriq 50mg. Will avoid acidic foods 04/12/24: stable using myrbetriq 50 mg. Prelief bid. Offereded [facility] instillation if symptoms worsenor consider atarax. She is reluctanct to take more medications at this point Lumbar vexcidqwesjgh79/26/2019 Overview (11/04/2018): Added automatically from request for surgery [id number] Left leg pain06/04/2017 Overview (06/04/2017): Added automatically from request for surgery [id number] Shortness of bjeege9411/21/2016Severe episode of recurrent major depressive disorder, without psychotic /03/2017Generalized anxiety disorder 09/11/2016Other cervical disc displacement, mid-cervical region, unspecified level05/02/2016Other cervical disc displacement, unspecified cervical region 05/02/2016Spondylosis without myelopathy or radiculopathy, cervical region 05/02/2016Other muscle spasm05/02/2016Radiculopathy, cervical qkrgag9605/02/2016 Blood coagulation /18/2014Ehlers-Danlos syndrome type III09/26/2013 Disorder of autonomic nervous yyorph4909/26/20134145Hixwrti03/30/2011 Overview (11/20/2016): Overview: With positive tilt table testing in many years ago, last syncope 8 years ago, HTN (hypertension)11/08/2010Sinus tachycardiaOther chest pain Resolved Problems ProblemNoted DateDiagnosed DateResolved DateOther acute ycjtvfbpqij30/11/2023 03/29/2024Weight gain Encounters * This document contains information received from the source organization and may not represent a complete record from that organization. DateTypeDepartmentCare EjybXkqeckagwff57/23/2025 11:43 PM EDT - 12/02/2024 4:05 AM EDTEmergency [facility] [address] [place] [address] Liza Hernandez MD Chest pain, unspecified type (Primary Dx) Discharge Disposition: Home12/01/20246923Vrbgvm83/13/2891Tyfgka27/07/2025 2:30 PM EDTOffice Visit [facility] [address] [phone] Richar Henderson MD Interstitial cystitis (Primary Dx)11/15/20249118Zkuorb16/29/5699Dyvjwv84/22/2025 Xgqsrl0110/20/20246609Shnsyo34/05/5632Lqmslc60/02/2025 1:00 PM EDTSupport Visit [facility] - Diabetes and Nutrition Education [address] [place] [phone] Adelia Ruiz LD Other adverse food reactions, not elsewhere classified, wzzehbb6710/11/2024Travel 10/03/20246338Zudxbm40/14/4092Hncksi13/07/5001Ekvwrl33/29/2025Travelfrom Last 3 Months Immunizations No known immunizations Family History Medical HistoryRelationNameCommentsCoronary artery diseaseFatherDiabetesMother Heart diseaseMotherCancerPaternal GrandmotherBreast cancerNeg HxRelationName StatusCommentsFatherAliveMotherAlivePaternal GrandmotherDeceased Social History Tobacco UseTypesPacks/DayYears UsedDateSmoking Tobacco: NeverSmokeless Tobacco: Never Tobacco Cessation:Counseling Given: Not Answered Alcohol UseStandard Drinks/WeekCommentsNot Currently0 (1 standard drink = 0.6 oz pure alcohol)ChildcareAnswerDate FmcuzmjeHhqcguwenWvwcocr78/04/2019Employment AnswerDate JkdysdknTzulhgonnoKhbzech50/04/2019Hunger ScreeningAnswerDate RecordedWithin the past 12 months we worried whether our food would run out before we got money to buy more.Never True12/01/2024Within the past 12 months the food we bought just didn't last and we didn't have money to get more.Never True12/01/2024Purpose - LifeAnswerDate RecordedPurpose and direction in life Hzfwixi96/13/2021CommentsNoSex and Gender InformationValueDate Recorded Sex Assigned at YtzspEqavyi18/22/2023 12:54 PM EDTLegal NdfGooquq30/06/2015 11:32 AM EDTGender IdentityNON-SCHQVK2812/25/2021 12:52 PM ESTSexual Orientation Choose not to vxldrujl94/22/2023 10:50 AM EDT Last Filed Vital Signs Vital SignReadingTime TakenCommentsBlood Mbhiqhmd922/8412/02/2024 3:15 AM EDT Qxwjc9617/24/2025 3:15 AM BGENanwggnbezo40.9 ??C (98.5 ??F)12/01/2024 11:46 PM EDTRespiratory Cabo984512/02/2024 3:15 AM EDTOxygen Aqfpbftzys83%12/02/2024 3:15 AM EDTInhaled Oxygen Concentration--Wdaxmh12.8 kg (145 lb)12/01/2024 11:46 PM OIEZbzyej794.6 cm (5' 4 )12/01/2024 11:46 PM EDTBody Mass Index24.8912/01/2024 11:46 PM EDT Plan of Treatment DateTypeDepartmentCare Team (Latest Contact Info)Nsllntblhfk31/14/2026 1:15 PM EDTOffice Visit [facility] [address] [place] [address] [address] [facility] [place] [address] Ida Casanova I, [place] [address] [place] [address] Health MaintenanceDue DateLast DoneCommentsStatin Use: Jckxzmrnkbxhhy57/21/1980 Depression Nvllxbnqn01/21/1992DTaP,Tdap and Td Vaccines (1 - Tdap)11/29/1998 Influenza Kzxptda4210/10/2024dult BMI Pqobxtiwi71Tobacco Iuwprsbfn61olonoscopy/03/2020, 04/10/2020, 07/31/2006 Goals GoalPatient Goal TypeAssociated ProblemsRecent ProgressPatient-Stated?Author <enter goal here> Ling Del Toro, ANSELMO Note: Evaluation of progress towards goal: home self care and family support Medical Devices Not on file Procedures Procedure NamePriorityDate/TimeAssociated DiagnosisCommentsPOCT NURSING URINE MACROSCOPIC UXWxdjyin08/24/2025 2:[address] HUMERUS RT WO KFGEGFBH97/24/2025 2:36 AM EDT ER EXTRA URINE BDSNBDRTHZV89/24/2025 2:36 AM EDT ER EXTRA GJROSBLTU43/24/2025 2:36 AM EDT XR HUMERUS RT MIN 2 NXNXZSL86/24/2025 1:48 AM EDT XR FOREARM RT 2 CTPQTGC11/24/2025 1:[address] CTA ABD AND MJDVOFQEXY47/24/2025 1:[address] CTA VBUHJZTXN98/24/2025 1:43 AM EDT EXTRA TUBES BLUE FPCRuijgts60/24/2025 12:00 AM EDT TROPONIN I, HIGH SENSITIVITY 0 HOURAdd-On12/02/2024 12:00 AM EDT TROPONIN I, HIGH SENSITIVITY 0 HOURAdd-On12/02/2024 12:00 AM EDT EXTRA LXCFMUedgpks02/24/2025 12:00 AM EDT ITRUXYMWJL57/24/2025 12:00 AM EDT COMPREHENSIVE METABOLIC HXKUMDWKO95/24/2025 12:00 AM EDT CBC WITH AUTO UBVHYYGTEOSSFJGO96/24/2025 12:00 AM EDT PM AMB POCT URINALYSIS AUTO, W/O MLKWSGBAPBVilmpmn09/07/2025 2:54 PM EDT Interstitial cystitis AMB REFERRAL TO DIABETIC FNIBKBUEAKqwlotw43/02/2025 2:12 PM EDT Other adverse food reactions, not elsewhere classified, sequela T3, NCHDTxrhcks19/02/2025 2:10 PM EDT Encounter for general adult medical examination without abnormal findings Attention-deficit hyperactivity disorder, predominantly inattentive type Chronic idiopathic constipation Chronic fatigue, unspecified Generalized anxiety disorder THYROID PROFILE INCLUDES TSH BV2Bbfhzzt39/02/2025 2:10 PM EDT Encounter for general adult medical examination without abnormal findings Attention-deficit hyperactivity disorder, predominantly inattentive type Chronic idiopathic constipation Chronic fatigue, unspecified Generalized anxiety disorder COMPREHENSIVE METABOLIC AUQLHHtapnac64/02/2025 2:10 PM EDT Encounter for general adult medical examination without abnormal findings Attention-deficit hyperactivity disorder, predominantly inattentive type Chronic idiopathic constipation Chronic fatigue, unspecified Generalized anxiety disorder CBC WITH AUTO GTKQWEVRTMEHGqqbqdf60/02/2025 2:10 PM EDT Encounter for general adult medical examination without abnormal findings Attention-deficit hyperactivity disorder, predominantly inattentive type Chronic idiopathic constipation Chronic fatigue, unspecified Generalized anxiety disorder NJJNVBQBGUXHnijyqr96/22/2007from Last 3 Months or Most Recently Relevant to Health Maintenance Results * (ABNORMAL) POCT Nursing Urine Macroscopic UA (12/02/2024 2:39 AM EDT)Component ValueRef RangeTest MethodAnalysis TimePerformed AtPathologist [facility] Urine Specific Gravity1.0101.010, 1.015, 1.020, 1.34294 2:40 AM EDT [facility] Urine Leukocyte EsteraseNegative Vmglphod92/24/2025 2:40 [facility] Urine IzyznvtJajwpmemVdippebp49/24/2025 2:40 AM [facility] Urine pH7.05.0, 6.0, 6.5, 7.0, 7.5, 8.0, 8.5, 5.510 2:40 AM [facility] Urine ProteinNegativeNegative 12/02/2024 2:40 AM [facility] Urine Glucose HqjpfybuBzjdmeph03/24/2025 2:40 AM [facility] Urine Ctejbzi35 mg/dL(A)Uggiivbg90/24/2025 2:40 AM [facility] Urine Urobilinogen0.2 E.U./dL12/02/2024 2:40 AM EDT [facility] Urine BilirubinNegativeNegative 12/02/2024 2:40 AM [facility] Urine Blood/HGB Moderate(A)Ibjezhio19/24/2025 2:40 AM [facility] Specimen (Source)Anatomical Location / LateralityCollection Method / Volume Collection TimeReceived GocnVgsvj12/24/2025 2:39 AM EDT1 2:40 AM EDT Narrative Authorizing ProviderResult TypeResult StatusStacy Dybas MDPOINT OF CARE TEST ORDERABLESFinal ResultPerforming OrganizationAddressCity/State/ZIP CodePhone Number [facility] [address] [place] [address], [place] * CT humerus right without contrast (12/02/2024 [...] MD on 12/02/2024 3:13 AM Procedure Note Gaeln Nagy MD - 12/02/2024 CT RIGHT HUMERUS [...] on 12/02/2024 3:13 AM Authorizing ProviderResult TypeResult StatusStdanita Hernandez MDIMG CT ORDERABLESFinal Result * Extra Urine Culture (12/02/2024 2:36 AM EDT)ComponentValueRef RangeTest Method Analysis TimePerformed AtPathologist SignatureExtra TubeAuto Resulted 12/02/2024 4:02 AM [facility] (Source) Anatomical Location / LateralityCollection Method / VolumeCollection Time Received TimeUrineUrine specimen collection, clean catch / Cwrvjmg2112/02/2024 2:36 AM EDT1 2:57 AM EDT Narrative Authorizing ProviderResult TypeResult StatusStdanita Hernandez MDURINE ORDERABLESFinal ResultPerforming OrganizationAddressCity/State/ZIP CodePhone Number [address] [place] [address], [place] * Extra Urine (12/02/2024 2:36 AM EDT)ComponentValueRef RangeTest MethodAnalysis TimePerformed AtPathologist SignatureExtra TubeAuto Zyilpizd88/24/2025 4:02 AM [facility] (Source)Anatomical Location / LateralityCollection Method / VolumeCollection TimeReceived TimeUrineUrine specimen collection, clean catch / Darlxri0312/02/2024 2:36 AM EDT1 2:57 AM EDT Narrative Authorizing ProviderResult TypeResult StatusStdanita Hernandez MDURINE ORDERABLESFinal ResultPerforming OrganizationAddressty/State/[facility] CodePhone Number [address] [place] [address], [place] * X-ray humerus right minimum 2 [...] on 12/02/2024 1:51 AM Authorizing ProviderResult TypeResult StatusStdanita KAY DIAGNOSTIC IMAGING ORDERABLESFinal Result * X-ray forearm [...] 12/02/2024 1:50 AM Authorizing ProviderResult TypeResult StatusStdanita KAY DIAGNOSTIC IMAGING ORDERABLESFinal Result * CT angiogram chest (12/02/2024 [...] on 12/02/2024 1:55 AM Authorizing ProviderResult TypeResult StatusStacy [facility] CT ORDERABLESFinal Result * CT angiogram abdomen and [...] on 12/02/2024 2:01 AM Authorizing ProviderResult TypeResult StatusStdanita Hernandez MDIMG CT ORDERABLESFinal Result * Troponin I, High Sensitivity 0 Hour (12/02/2024 12:00 AM EDT)ComponentValueRef RangeTest MethodAnalysis TimePerformed AtPathologist SignatureTROPONIN I, HIGH SENSITIVITY5<16 ng/L1 1:24 AM [facility] Specimen (Source)Anatomical Location / LateralityCollection Method / Volume Collection TimeReceived TimeBloodVenous blood / UnknownVenipuncture / Unknown 12:04 AM EDT Narrative Authorizing ProviderResult TypeResult StatusStdanita Hernandez MDLAB BLOOD ORDERABLES Final ResultPerforming OrganizationAddressCity/State/ZIP CodePhone Number [address] [place] [address], [place] * Light Blue Top (12/02/2024 12:00 AM EDT)ComponentValueRef RangeTest Method Analysis TimePerformed AtPathologist SignatureExtra TubeAuto Resulted 12/02/2024 1:01 AM [facility] (Source) Anatomical Location / LateralityCollection Method / VolumeCollection Time Received TimeBloodVenous blood / Uakfsld80 12:07 AM EDT Narrative Authorizing ProviderResult TypeResult StatusDunia Colón DOLAB BLOOD ORDERABLESFinal ResultPerforming OrganizationAddressCity/State/ZIP CodePhone Number [address] [address], [place] * (ABNORMAL) CBC auto differential (12/02/2024 12:00 AM EDT) Only the most recent of2 resultswithin the time period is included. ComponentValueRef RangeTest MethodAnalysis TimePerformed AtPathologist Signature WBC13.1(H)4 - 11 x10E9/L1 12:09 AM [facility]USRBC Count4.654.1 - 5.2 X10E12/L1 12:09 AM [facility]AMPUSHemoglobin15.112 - 15.5 g/dL12/02/2024 12:09 AM [facility]USHematocrit42.735 - 47 %12/02/2024 12:09 AM [facility]USMCV92fL12/02/2024 12:09 AM [facility]USMCH32.5pg1 12:09 AM [facility]AMPUSMCHC35.4g/dL12/02/2024 12:09 AM [facility] RDW13.0%12/02/2024 12:09 AM [facility]AMPUSPlatelet Count 479(H)150 - 450 X10E9/L1 12:09 AM [facility]AMPUSMPV7.4fL1 12:09 AM [facility] Neutrophils %76.4%12/02/2024 12:09 AM [facility] Lymphocytes %16.8%12/02/2024 12:09 AM [facility] Monocytes %6.2%12/02/2024 12:09 AM [facility] Eosinophils %0.1%12/02/2024 12:09 AM [facility] Basophils %0.5%12/02/2024 12:09 AM [facility] Neutrophils Absolute (A)10.0(H)1.5 - 6.6 10*3/uL12/02/2024 12:09 AM [facility]USLymphocytes Absolute2.21.0 - 3.5 10*3/uL12/02/2024 12:09 AM [facility]USMonocytes Absolute0.80.0 - 0.9 10*3/uL12/02/2024 12:09 AM [facility] CAMPUSEosinophils Absolute0.00.0 - 0.4 10*3/uL12/02/2024 12:09 AM EDSELECT [facility], INCBasophils Absolute0.10.0 - 0.2 10*3/uL12/02/2024 12:09 AM [facility]AMPUSDifferential TypeAUTOMATED RYZGVWZGXMYA64/24/2025 12:09 AM [facility] SYSTEMpecimen (Source)Anatomical Location / LateralityCollection Method / VolumeCollection TimeReceived TimeBloodVenous blood / UnknownVenipuncture / Wbchkpy82/24/ 12:04 AM EDT Narrative Authorizing ProviderResult TypeResult StatusStacy David MDLAB BLOOD ORDERABLES Final ResultPerforming OrganizationAddressCity/State/ZIP CodePhone Number [address] [place] [address], [place] * Lipase (12/02/2024 12:00 AM EDT)ComponentValueRef RangeTest MethodAnalysis TimePerformed AtPathologist XjtskvnqvQTSHIW4798 - 40 U/L1 12:20 AM [facility] (Source)Anatomical Location / LateralityCollection Method / VolumeCollection TimeReceived TimeBloodVenous blood / UnknownVenipuncture / Aequrge02/24/ 12:04 AM EDT Narrative Authorizing ProviderResult TypeResult StatusStacy Dysharif MDLAB BLOOD ORDERABLES Final ResultPerforming OrganizationAddressty/State/ZIP CodePhone Number [address] [place] [address], [place] * (ABNORMAL) Comprehensive metabolic panel (12/02/2024 12:00 AM EDT) Only the most recent of2 resultswithin the time period is included. ComponentValueRef RangeTest MethodAnalysis TimePerformed AtPathologist Signature VJPCSQ731(L)134 - 146 mmol/L1 12:22 AM EDSELECT MED[facility]DM[facility], INCPOTASSIUM3.73.5 - 5.0 mmol/L1 12:22 AM [facility]AMPUSCHLORIDE93(L)98 - 109 mmol/L1 12:22 AM [facility] CAMPUSCARBON GPSBJHX1267 - 32 mmol/L1 12:22 AM EDT [facility]ATIONANION IIE85bckz/L1 12:22 AM EDT [facility]AB[facility]ATIONBLOOD UREA GKPURMXK396 - 23 mg/dL12/02/2024 12:22 AM [facility] CAMPUSCREATININE0.720.70 - 1.00 mg/dL 12/02/2024 12:22 AM [facility] CAMPUSComment:METHOD TRACEABLE TO IDMS FDEVXJEOVBRJMAF944(H)65 - 99 mg/dL12/02/2024 12:22 AM EDT [facility]ABIL[facility]ATIONCALCIUM10.08.5 - 10.5 mg/dL12/02/2024 12:22 AM [facility] CAMPUSTOTAL PROTEIN8.7(H)6.0 - 8.0 g/dL 12/02/2024 12:22 AM [facility] CAMPUSALBUMIN5.13.2 - 5.3 g/dL12/02/2024 12:22 AM [facility] CAMPUSALKALINE UFLDYXFBZMI5821 - 130 U/L1 12:22 AM [facility]USAST28<=41 U/L1 12:22 AM [facility] ALT25<=31 U/L1 12:22 AM [facility] BILIRUBIN,TOTAL0.60.3 - 1.2 mg/dL12/02/2024 12:22 AM [facility] CAMPUSEGFR Non-Race Dependent>90>=60 ml/min/1.73sq.m1 12:22 AM [facility]AMPUSComment: eGFR not reported due to non-numeric value for Creatinine. Reported eGFR is based on the CKD-EPI 2020 equation that does not use a race coefficient. Specimen (Source)Anatomical Location / LateralityCollection Method / Volume Collection TimeReceived TimeBloodVenous blood / UnknownVenipuncture / Unknown 12:04 AM EDT Narrative Authorizing ProviderResult TypeResult StatusLiza Hernandez MDLAB BLOOD ORDERABLES Final ResultPerforming OrganizationAddSt. Clair Hospital/State/[place] [address], * POCT Urinalysis Auto, W/O Microscopy (11/15/2024 2:54 PM EDT)ComponentValueRef RangeTest MethodAnalysis TimePerformed AtPathologist SignatureExternal Poct Urine GlucoseNegativeMANUALLY TRANSCRIBED RESULTSExternal Poct Urine Ketones NegativeMANUALLY TRANSCRIBED RESULTSExternal Poct Urine BloodModerateMANUALLY TRANSCRIBED RESULTSExternal Poct Urine Ph5.5MANUALLY TRANSCRIBED RESULTS External Poct Urine ProteinNegativeMANUALLY TRANSCRIBED RESULTSExternal Poct Urine NitriteNegativeMANUALLY TRANSCRIBED RESULTSExternal Poct Urine Leukocyte EsteraseNegativeMANUALLY TRANSCRIBED RESULTSSpecimen (Source)Anatomical Location / LateralityCollection Method / VolumeCollection TimeReceived Time Urine11/15/2024 2:54 PM EDT Narrative Authorizing ProviderResult TypeResult StatusRichar Henderson MDPOINT OF CARE TEST ORDERABLESFinal ResultPerforming OrganizationAddressty/State/ZIP Code Phone Number MANUALLY TRANSCRIBED RESULTS * Ambulatory referral to Diabetic Education (10/11/2024 2:12 PM EDT) Narrative Authorizing ProviderResult TypeResult StatusBill Craven MDOUTPATIENT REFERRAL ORDERABLESFinal ResultPerforming OrganizationAddressCity/State/ZIP Code Phone Number MANUALLY TRANSCRIBED RESULTS * (ABNORMAL) Thyroid profile includes TSH FT4 (10/11/2024 2:10 PM EDT)Component ValueRef RangeTest MethodAnalysis TimePerformed AtPathologist SignatureFREE T4 0.59(L)0.61 - 1.60 ng/dL10/11/2024 6:44 PM [facility] LABORATORYTSH1.300.49 - 4.67 uIU/mL10/11/2024 6:44 PM [facility] LABORATORYSpecimen (Source)Anatomical Location / LateralityCollection Method / VolumeCollection TimeReceived TimeBloodVenous blood / Unknown Venipuncture / Vavzioh6510/11/2024 2:10 PM EDT10/11/2024 2:11 PM EDT Narrative Authorizing ProviderResult TypeResult StatusAinevin Hanson MACADAM RAKER-CNPLAB BLOOD ORDERABLESFinal ResultPerforming OrganizationAddressCity/State/ZIP CodePhone Number [facility] [address] [place] [address], * T3, free (10/11/2024 2:10 PM EDT)ComponentValueRef RangeTest MethodAnalysis TimePerformed AtPathologist SignatureFREE T33.102.50 - 3.90 pg/mL10/11/2024 6:41 PM EDTTSOUTHWEST [facility] LABORATORYSpecimen (Source)Anatomical Location / LateralityCollection Method / VolumeCollection TimeReceived Time BloodVenous blood / UnknownVenipuncture / Gzpwjsz3910/11/2024 2:10 PM EDT 10/11/2024 2:11 PM EDT Narrative Authorizing ProviderResult TypeResult StatusAinevin Hanson MACADAM RAKER-CNPLAB BLOOD ORDERABLESFinal ResultPerforming OrganizationAddressCity/State/ZIP CodePhone Number [facility] [address] [place] [address], * Colonoscopy (07/31/2006) Narrative Authorizing ProviderResult TypeResult StatusNot In System Ref ProvGI PROCEDURE ORDERABLESFinal ResultPerforming OrganizationAddressCity/State/ZIP CodePhone Number [facility] [address] [facility] [place] [address] from Last 3 Months or Most Recently Relevant to Health Maintenance Insurance Advance Directives * Full Code (Latest Code Status on File) Date ActivatedDate InactivatedComments04/29/2022 8:12 PM05/02/2022 12:11 PM Care Teams Team MemberRelationshipSpecialtyStart DateEnd Date Jaja Hanson, MACADAM RAKER-JAVA JSF DEVELOPER [address] [place] [address] PCP - GeneralNurse Practitioner09/07/23
--- OUTSIDE RECORDS SUMMARY | 2024-12-02 14:38 | XMS_ITS | Clinical Summary ---
Author Organization [facility] Address [address] [place] [address] Care Team Providers Care Intel Analyst Name Role Phone Unallocated, Noms Provider MD Primary Care Provi karolina Allergies Active AllergyReactionsCriticalityNoted DateCommentsCodeineRash,Shortness of eirkhfJppq82/21/2011 Other Reaction(s): other swelling PenicillinsRash,Shortness of kpwykeFwvt73/21/2011 Other Reaction(s): Other swelling Other Reaction(s): other PhenothiazinesShortness of ueqaolSaan86/21/2011 Other Reaction(s): other swelling SulfamethoxazoleShortness of upfyclYpbq61/21/2011 swelling Sulfamethoxazole-UnqfaqocybwrXfhne02/19/2014 Other Reaction(s): other SumatriptanShortness of breath,RjhiqnfeCiic51/21/2011 Other Reaction(s): other swelling ZolmitriptanShortness of zmgforKenr38/21/2011 Other Reaction(s): other swelling Medications MedicationSigDispense QuantityRefillsLast FilledStart DateEnd DateStatus topiramate 50 MG tablet 50 mg DailyActive tiZANidine (Zanaflex) 4 MG capsule Take 4 mg by mouth in the morning and 4 mg in the evening.Active omeprazole (PriLOSEC) [address] capsule Take 40 mg by mouth in the morning. Take before meals.Active Myrbetriq 50 MG 24 hr tablet Take 50 mg by mouth DailyActive metoprolol succinate XL (Toprol-XL) 25 MG 24 hr tablet Take 25 mg by mouth in the morning.05/11/2023Active melatonin 5 MG tablet 1 (one) time each day at the same timeActive loratadine (Claritin) 10 MG tablet Take 10 mg by mouth if neededActive metroNIDAZOLE (Metrogel) 0.75 % vaginal gel Indications:BV (bacterial vaginosis),Vaginal dischargeUse 1 applicator vaginally every month 70 g ctive estradiol (Estrace) 1 MG tablet Indications:Hot flashes,Symptomatic menopausal or female climacteric statesTAKE 1 TABLET(1 MG) BY MOUTH DAILY 90 tablet ctive Active Problems ProblemNoted DateDiagnosed HcwtBumwszqeovl25/20/2024Sensory rxvges1306/29/2023 Other chronic pain06/29/2023 Family History Medical HistoryRelationNameCommentsAsthmaOtherCancerOtherDepressionOtherDiabetes OtherHeart diseaseOtherHyperlipidemiaOtherHypertensionOtherIrritable bowel syndromeOtherMigrainesOtherblood diseaseOtherRelationNameStatusCommentsOther Social History Tobacco UseTypesPacks/DayYears UsedDateSmoking Tobacco: NeverSmokeless Tobacco: NeverAlcohol UseStandard Drinks/WeekCommentsYes0 (1 standard drink = 0.6 oz pure alcohol)AUDIT-CAnswerDate RecordedQ1: How often do you have a drink containing alcohol?Monthly or less05/29/2023Q2: How many drinks containing alcohol do you have on a typical day when you are drinking?1 or Q3: How often do you have six or more drinks on one occasion?Never05/29/2023HQ-2AnswerDate Recorded Patient Health Questionnaire-2 Qozyx393CommentsNoSex and Gender InformationValueDate RecordedSex Assigned at BirthNot on fileLegal SexFemale 04/23/2022 6:47 PM EDTGender IdentityNot on fileSexual OrientationNot on file Last Filed Vital Signs Vital SignReadingTime TakenCommentsBlood Ebzoiyds523/64005/29/2023 11:43 AM EDT Pulse--Temperature--Respiratory Rate--Oxygen Saturation--Inhaled Oxygen Concentration--Xjtrgz21.4 kg (153 lb)05/29/2023 11:43 AM UESIjntpt806 cm (5' 3 ) 05/29/2023 11:43 AM EDTBody Mass Index27. 11:43 AM EDT Plan of Treatment Health MaintenanceDue DateLast DoneCommentsCT Iuzlzlwfttgz05/21/1980FIT-DNA 1979FIT1979FOBT1979 7394Otmqdnstcaanh85/21/1980Medicare Annual Wellness (AWV)5005/29/20237783Xmoqnvkji43/15/98309808/24/2023, 06/25/2022, 02/05/2022, Additional history existsInfluenza Vaccine (#1)5Colonoscopy /olorectal Cancer Sfpluospj86/02/2031ervical Cancer ScreeningDiscontinuedPap UpxjxVzsylgiwsoap06/19/2024, 11/07/2021HPV/Cotest Discontinued Procedures Procedure NamePriorityDate/TimeAssociated DiagnosisCommentsTHINPREP IMAGING PAP AND HPV DNA REFLEX HPV 16,20Ooiqqvf30/19/2024 12:00 AM EDT Encounter for gynecological examination with abnormal finding Screening for cervical cancer BI MAMMOGRAM SCREENING TOMOSYNTHESIS LQRBZRGCFGwdargm51/28/2022 12:00 PM EST Menopausal and female climacteric states Encounter for screening for human papillomavirus (HPV) Encounter for gynecological examination (general) (routine) without abnormal findings Encounter for screening mammogram for malignant neoplasm of breast Encounter for screening for malignant neoplasm of vagina from Last 3 Months or Most Recently Relevant to Health Maintenance Results * THINPREP IMAGING PAP AND HPV DNA REFLEX HPV 16,18 (05/29/2023 12:00 AM EDT) ComponentValueRef RangeTest MethodAnalysis TimePerformed AtPathologist SignatureCLINICAL INFORMATIONQUESTComment:None givenLMPQUESTComment:None given PREV. PAPQUESTComment:None givenPREV. BXQUESTComment:None givenSOURCEQUEST Comment:None givenSTATEMENT OF ADEQUACYQUESTComment: Satisfactory for evaluation. Endocervical/transformation zone component absent. INTERPRETATION/RESULTQUESTComment: Cytology Results: Negative for intraepithelial lesion or malignancy. COMMENTQUESTComment: This Pap test has been evaluated with computer assisted technology. CYTOTECHNOLOGISTQUESTComment: CANDELARIAK, CT(ASCP) CT screening location: [facility] [place], [address] [place] [address]. REVIEW CYTOTECHNOLOGISTQUESTComment: LLT, CT(ASCP) CT screening location: [facility] [place], [address] [place] [address]. (ALWAYS MESSAGE)QUESTComment: EXPLANATORY NOTE: The Pap is a screening test for cervical cancer. It is not a diagnostic test and is subject to false negative and false positive results. It is most reliable when a satisfactory sample, regularly obtained, is submitted with relevant clinical findings and history, and when the Pap result is evaluated along with historic and current clinical information. HPV DNA, HIGH RISK, CERVICALNot DetectedNOT DETECTEDQUESTComment: Not Detected High Risk HPV types (16,18,31,33,35,39,45,51,52, 56,58,59,66,68) were not detected. Other HPV types which cause anogenital lesions may be present. The significance of the other types of HPV in malignant processes has not been established. Methodology: Real Time PCR Specimen (Source)Anatomical Location / LateralityCollection Method / Volume Collection TimeReceived IerbJstu61/ 3:17 AM EDT Narrative Resulting Agency Comment Performing Organization Information ?Site ID: AMD ?Name: [facility] ?Address: [address] [place] [address] ?Director: Hugo Jang M.D.,PhD ?Site ID: [id number] ?Name: [facility] ?Address: [address] [place] [phone] ?Director: Devin Ceja MD Authorizing ProviderResult TypeResult StatusRichard A Visci DOLAB CYTOLOGY ORDERABLESFinal ResultPerforming OrganizationAddressCity/State/ZIP CodePhone Number [facility] * Bilateral screening mammogram with tomosynthesis (02/05/2022 12:00 PM EST) Anatomical RegionLateralityModalityBreastBilateralMammographySpecimen (Source) Anatomical Location / LateralityCollection Method / VolumeCollection Time Received Time Narrative 02/05/2022 12:00 PM EST PERFORMED AT [facility] LOCATION:[id number] Procedure Note CONVERSION, GENERIC - 08/15/2022 PERFORMED AT [facility] LOCATION:[id number] Authorizing ProviderResult TypeResult StatusAditya KAY BI PROCEDURES Final Result from Last 3 Months or Most Recently Relevant to Health Maintenance Insurance Care Teams Team MemberRelationshipSpecialtyStart DateEnd Date Unallocated, Noms MD Javier [address] [facility] [place] [address] PCP - GeneralFamily Medicine05/29/23
--- OUTSIDE RECORDS SUMMARY | 2024-12-02 14:38 | XMS_ITS | Clinical Summary ---
Author Organization [facility] Address [address] [place] [address] Care Team Providers Care Trustee Of Estate Name Role Phone Tevin Stahl MD Primary Care Provider Allergies Active AllergyReactionsCriticalityNoted DateCommentsCodeineOther,Rash,Shortness of ilfhmsNirp02/21/2011 swelling PenicillinsOther,Rash,Shortness of kzunxrYewm58/21/2011 swelling PhenothiazinesOther,Shortness of odqlirEmau62/21/2011 swelling SulfamethoxazoleShortness of bqlxtmMssh62/21/2011 swelling Sulfamethoxazole-TrimethoprimHives,Other01/27/2014SumatriptanOther,Shortness of breath,VgypjilcBjhx97/21/2011 swelling ZolmitriptanOther,Shortness of zzfficZkci97/21/2011 swelling Medications MedicationSigDispense QuantityRefillsLast FilledStart DateEnd DateStatus metoprolol succinate XL (Toprol-XL) 25 mg 24 hr tablet Take 25 mg by mouth every 12 (twelve) hours.05/27/2021ctive atenolol (Tenormin) 25 mg tablet atenolol 25 mg tabletActive loratadine (Claritin) 10 mg tablet Take 10 mg by mouth.Active omeprazole (PriLOSEC) [address] capsule omeprazole 40 mg capsule,delayed releaseActive tiZANidine (Zanaflex) 4 mg tablet tizanidine 4 mg tabletActive topiramate 50 mg tablet topiramate 50 mg tabletActive midodrine (Proamatine) 2.5 mg tablet midodrine 2.5 mg yurduo4801/19/2017Active Active Problems ProblemNoted DateDiagnosed DateLeft wrist sprain, initial ozxdkcjin78/28/2022 Family History Medical HistoryRelationNameCommentsHeart diseaseFatherDiabetesMotherHypertension MotherRelationNameStatusCommentsFatherMother Social History Tobacco UseTypesPacks/DayYears UsedDateSmoking Tobacco: NeverSmokeless Tobacco: Never Tobacco Cessation:Counseling Given: Not Answered Alcohol UseStandard Drinks/WeekCommentsNever0 (1 standard drink = 0.6 oz pure alcohol)UT Safety & EnvironmentAnswerDate RecordedFear of Current or Ex-Partner Not on file04/02/2023Emotionally AbusedNot on file04/02/2023hysically AbusedNot on file04/02/2023Sexually AbusedNot on file04/02/2023hysically or Sexually AbusedNot on file04/02/2023CommentsUnknownSex and Gender Information ValueDate RecordedSex Assigned at JsjirWwrsdz52/28/2022 7:46 AM EDTLegal Sex Qzgzun9308/07/2021 9:42 PM EDTGender SpjhrbmaPxnfab14/28/2022 7:46 AM EDTSexual OrientationHeterosexual or Uqitlvqy89/28/2022 7:46 AM EDT Last Filed Vital Signs Vital SignReadingTime TakenCommentsBlood Pressure--Pulse--Temperature-- Respiratory Rate--Oxygen Saturation--Inhaled Oxygen Concentration--Gokpra77.7 kg (125 lb)12/31/2021 9:06 AM MEWKlkhga427.6 cm (5' 4 )12/31/2021 9:06 AM ESTBody Mass Index21.4612/31/2021 9:06 AM EST Plan of Treatment Health MaintenanceDue DateLast DoneCommentsCT Fzhhgipigiuz01/21/1980FIT-DNA 1979FIT1979FOBT1979Medicare Annual Wellness (AWV)1979 Nuxvdlpkqhqae54/21/1980Depression Iwmonkxsa85/21/1992Hepatitis B Vaccines (1 of 3 - 19+ 3-dose series)11/29/1998Pneumococcal Vaccine: Pediatrics (0 to 5 Years) and At-Risk Patients (6 to 64 Years) (1 of 2 - PCV)10/21/1999Pap Smear11/29/2000 Adult Oipsbvv8411/29/2001HPV Vaccines (1 - 3-dose SCDM series)11/29/2006Cervical Cancer Dksdgikna40/21/2010HPV/Vqrefr1811/29/20090595Jppgplnfa00/21/2020Influenza Vaccine (#1)2024Zoster Vaccines (1 of 2)11/29/20292381Ayfrohqervl77/02/2031 04/10/2020olorectal Cancer Sfbwwtgns57/02/2031HIB VaccinesAged OutNo longer eligible based on patient's age to complete this topicIPV VaccinesAged OutNo longer eligible based on patient's age to complete this topicMeningococcal B VaccineAged OutNo longer eligible based on patient's age to complete this topic Meningococcal VaccineAged OutNo longer eligible based on patient's age to complete this topicRotavirus VaccinesAged OutNo longer eligible based on patient's age to complete this topic Insurance MemberSubscriberPlan / Payer (Effective 2011-Present)Name:Ida Jacome Member ID:[id number] Relation to Subscriber:SelfName:Ida Jacome Subscriber ID:[id number] Payer ID:[id number] Group ID:Not on file Type:Medicare Address: [facility] [place] [id number] Care Teams Team MemberRelationshipSpecialtyStart DateEnd Date Tevin Stahl MD [address] [place] [phone] [facility]12/06/21
--- OUTSIDE RECORDS SUMMARY | 2024-12-02 14:39 | XMS_ITS | Encounter Summary ---
Author Organization [facility] Address [facility] [place] [address] Care Team Providers Care Flakeboard Line Tender Name Role Phone Unavailable Primary Care Provider Unavailabl e Source Comments In the event this information is protected by the Federal Confidentiality of Alcohol and Drug AbusePatient Records regulations: The Federal rules restrict any use of the information to criminally investigate or prosecute any alcohol or drug abuse patient.[facility] Encounter Details DateTypeDepartmentCare Team (Latest Contact Info)Tclxxkbjmyv45/20/2025Travel Social History Tobacco UseTypesPacks/DayYears UsedDateSmoking Tobacco: NeverSmokeless Tobacco: NeverAlcohol UseStandard Drinks/WeekCommentsNot Currently0 (1 standard drink = 0.6 oz pure alcohol)PHQ-2AnswerDate RecordedPHQ-2 bcoqn619Hunger Vital SignAnswerDate RecordedWithin the past 12 months, [...] were you homeless or living in a retirement (including now)?No11/29/2024HC UtilitiesAnswerDate RecordedIn the past 12 months has the electric, gas, oil, or water company threatened to shut off services in your home?No11/29/2024rea Deprivation IndexAnswerDate RecordedNational Score (1-100), lower number is lower ksix458107/02/2023State Score (1-10), lower number is lower flgl210 Data from: https://www.neighborhoodatlas.[facility].edu/. Last address used for [address]/02/2023CommentsNoSex and Gender InformationValueDate RecordedSex Assigned at BirthNot on fileLegal SexFemale 01/11/2012 8:35 AM ESTGender QencnpnlWlbztahex05/20/2025 11:41 AM EDTSexual OrientationLesbian or Gay09/14/2023 10:48 AM EDTdocumented as of this encounter Functional Status * Are you deaf or do you have serious difficulty hearing?AnswerDate of EubkrxashyRufadbAk82/01/2024 11:06 AM Angelica Gibson RN * Are you blind or do you have serious difficulty seeing, even when wearing glasses?AnswerDate of PlaxrbmoevNvwxlhKm42/01/2024 11:06 AM Angelica Gibson RN * Do you have serious difficulty walking or climbing stairs?AnswerDate of RwjgiakwfrJxmtdtIx34/01/2024 11:06 AM Angelica Gibson RN * Because of a physical, mental, or emotional condition, do you have difficulty doing errands alone such as visiting a doctor's office or shopping?AnswerDate of UyxcveowgtUvcgjdNn21/01/2024 11:06 AM Angelica Gibson RN documented as of this encounter Mental Status * Because of a physical, mental, or emotional condition, do you have serious difficulty concentrating, remembering, or making decisions?AnswerEntry Date JwewtbKl54/01/2024 11:06 AM Angelica Gibson RN documented in this encounter Plan of Treatment DateTypeDepartmentCare Team (Latest Contact Info)Jexkeoaoktj84/05/2025 3:[address] [facility] Neurology [address] [place] [phone] Monse Johnson APRN.HUMAN RESOURCES OPERATIONS COORDINATOR [address] [facility] [address] [place] [id number] EMU Follow-up Visit04/14/2025 9:[address] [facility] Neurology [address] [phone] Erica Morrison MD [address] [place] [address] EMU Follow updocumented as of this encounter Visit Diagnoses Not on filedocumented in this encounter
--- OUTSIDE RECORDS SUMMARY | 2024-12-02 14:39 | XMS_ITS | Patient Health Record ---
Author Organization [facility] [place] Address [address] [place] [address] Support Name Relationship Address Phone Ida Jacome Guarantor Unknown [phone] Reason For Referral No Information Medications Medication SIG (Take, Route, Frequency, Duration) Notes Start Date End Date Status Savella 50 MG 1 Oral two times daily 01/17/2014ctiveTopamax 200 MGOral daily ActiveAtenolol 25 MGOral daily ActiveOmeprazole 40 MGOral four times daily, as vzfesz6002/09/1899Active Lyrica 75 MG1 Capsule Oral two times daily01/16/2014ctiveLaMICtal 100 MGOral at osccgza3302/09/1899ActiveEtodolac 400 MGOral two times daily Active tiZANidine HCl 2 MGOral 1 twice a day, 2 at akogqlo2402/09/1899ActiveKlor-Con M20 20 MEQOral daily ActiveFludrocortisone Acetate 0.1 MGOral 2 tablets twice a day02/09/18995912NylmiwKunxp85/01/1900ActivePeri-Colace 8.6-50 MGOral 2 tablets once a day ActiveVoltaren 1 %Transdermal two times daily ActiveVitamin D 2000 UNITOral daily ActiveMelatonin 5 MGOral at bpwrjjr4402/09/1899ActivePrelief 340 (65-50) MG (CA-P)Oral 2 tablets daily Active Plan Of Treatment No Information Insurance Providers Payer Name Payer Address Payer Phone Subscriber Number Group Number Insured Name Patient Relationship to Insured Coverage Start Date Coverage End Date [employer] [id number] Ornelas - patient is the spouse of the insuredSELECT [id number], AlvvqvHlubw88/01/2012 Medical (General) History Surgical History Surgery Date(Month/Year) Removal of benign lump from the right br east Right hip arthroscopy Comments: Labral tearHysterectomyCesarean section Comments: X 3Tonsils and adenoids
--- OUTSIDE RECORDS SUMMARY | 2024-12-02 14:39 | XMS_ITS | Encounter Summary ---
Author Organization [facility] Address [address] [place] [address] Care Team Providers Care Mastic Floor Layer Name Role Phone Unavailable Primary Care Provider Unavailabl e Source Comments In the event this information is protected by the Federal Confidentiality of Alcohol and Drug AbusePatient Records regulations: The Federal rules restrict any use of the information to criminally investigate or prosecute any alcohol or drug abuse patient.[facility] Encounter Details DateTypeDepartmentCare Team (Latest Contact Info)Hslmockmwzz10/16/2025 Get Medical Advice Neurology [address] [place] [address] Theodore Jones APRN.AMBULATORY TECHNOLOGIST [address] [place] [address] Seizures are coming Social History Tobacco UseTypesPacks/DayYears UsedDateSmoking Tobacco: NeverSmokeless Tobacco: NeverAlcohol UseStandard Drinks/WeekCommentsNot Currently0 (1 standard drink = 0.6 oz pure alcohol)PHQ-2AnswerDate RecordedPHQ-2 zflhy8475Area Deprivation IndexAnswerDate RecordedNational Score (1-100), lower number is lower ijzv8922State Score (1-10), lower number is lower qbmy10507/02/2023 Data from: https://www.neighborhoodatlas.medicine.[facility]/. Last address used for [address]/02/2023CommentsNoSex and Gender InformationValueDate RecordedSex Assigned at BirthNot on fileLegal SexFemale 01/11/2012 8:35 AM ESTGender LagrmcntDhcrhxqij53/20/2025 11:41 AM EDTSexual OrientationLesbian or Gay09/14/2023 10:48 AM EDTdocumented as of this encounter Functional Status * Are you deaf or do you have serious difficulty hearing?AnswerDate of OdpcjmxknhZbbpgjLl83/01/2024 11:06 AM Angelica Gibson RN * Are you blind or do you have serious difficulty seeing, even when wearing glasses?AnswerDate of FcjosysytjJngdkmJo37/01/2024 11:06 AM Angelica Gibson RN * Do you have serious difficulty walking or climbing stairs?AnswerDate of FmnyjrrtjiQgqarqSu84/01/2024 11:06 AM Angelica Gibson RN * Because of a physical, mental, or emotional condition, do you have difficulty doing errands alone such as visiting a doctor's office or shopping?AnswerDate of MgyxicerzyWsctsaWn99/01/2024 11:06 AM Angelica Gibson RN documented as of this encounter Mental Status * Because of a physical, mental, or emotional condition, do you have serious difficulty concentrating, remembering, or making decisions?AnswerEntry Date GgauarSg25/01/2024 11:06 AM Angelica Gibson RN documented in this encounter Miscellaneous Notes * Telephone Encounter - Mary Ann Snowden PA-C - 11/25/2024 11:14 AM EDT Patient called back to notify she does not have a ride for today, will come for admission on Thursday. Mary Ann Snowden PA-C documented in this encounter Plan of Treatment DateTypeDepartmentCare Team (Latest Contact Info)Rpzhoykkmgf27/05/2025 3:00 PM [facility] Neurology [address] [place], [place] [phone] Monse Johnson APRN.AMBULATORY TECHNOLOGIST [address] [facility] [address] [place] [address] EMU Follow-up Visit04/14/2025 9:20 AM [facility] Neurology [address] [place] [address] Erica Morrison MD [address] [place] [address] EMU Follow updocumented as of this encounter Visit Diagnoses Not on filedocumented in this encounter
--- OUTSIDE RECORDS SUMMARY | 2024-12-02 14:39 | XMS_ITS | Encounter Summary ---
Author Organization [facility] Address [address] [place] [address] Care Team Providers Care Ballet Professor Name Role Phone Unavailable Primary Care Provider Unavailabl e Source Comments In the event this information is protected by the Federal Confidentiality of Alcohol and Drug AbusePatient Records regulations: The Federal rules restrict any use of the information to criminally investigate or prosecute any alcohol or drug abuse patient.[facility] Encounter Details DateTypeDepartmentCare Team (Latest Contact Info)Eoyvvebykgb36/24/2025 Get Medical Advice Neurology [address] [place] [address] Erica Morrison MD [address] [place] [address] I???m terrified Social History Tobacco UseTypesPacks/DayYears UsedDateSmoking Tobacco: NeverSmokeless Tobacco: NeverAlcohol UseStandard Drinks/WeekCommentsNot Currently0 (1 standard drink = 0.6 oz pure alcohol)PHQ-2AnswerDate RecordedPHQ-2 gwmbm633Hunger Vital SignAnswerDate RecordedWithin the past 12 months, [...] RecordedIn the past 12 months has the [employer], gas, oil, or water [employer] threatened to shut off services in your home?No11/29/2024rea Deprivation IndexAnswerDate RecordedNational Score (1-100), lower number is lower kvsf838207/02/2023State Score (1-10), lower number is lower qvfw770 Data from: https://www.neighborhoodatlas.[facility].edu/. Last address used for [address] 07/02/2023CommentsNoSex and Gender InformationValueDate RecordedSex Assigned at BirthNot on fileLegal SexFemale 01/11/2012 8:35 AM ESTGender EpqvztbjHrrucndlf35/20/2025 11:41 AM EDTSexual OrientationLesbian or Gay09/14/2023 10:48 AM EDTdocumented as of this encounter Functional Status * Are you deaf or do you have serious difficulty hearing?AnswerDate of EosaawbjrsSigvokPe82/01/2024 11:06 AM EDTNotAngelica solorzano RN * Are you blind or do you have serious difficulty seeing, even when wearing glasses?AnswerDate of WeqzbncmvcCtrjfyPk44/01/2024 11:06 AM Angelica Gibson RN * Do you have serious difficulty walking or climbing stairs?AnswerDate of CiiffqefkhPycazuHp66/01/2024 11:06 AM Angelica Gibson RN * Because of a physical, mental, or emotional condition, do you have difficulty doing errands alone such as visiting a doctor's office or shopping?AnswerDate of EmhruxekaqCusjifZz44/01/2024 11:06 AM Angelica Gibson RN documented as of this encounter Mental Status * Because of a physical, mental, or emotional condition, do you have serious difficulty concentrating, remembering, or making decisions?AnswerEntry Date JynpkdKf38/01/2024 11:06 AM Angelica Gibson RN documented in this encounter Plan of Treatment DateTypeDepartmentCare Team (Latest Contact Info)Wntjlajipmd65/05/2025 3:[address] [facility] Neurology [address] [phone] Monse Johnson APRN.COMPUTER NUMERICAL CONTROL MACHINIST [address] [facility] [address] [place] [id number] EMU Follow-up Visit04/14/2025 9:[address] [facility] Neurology [address] [place] [address] Erica Morrison MD [address] [place] [address] EMU Follow updocumented as of this encounter Visit Diagnoses Not on filedocumented in this encounter
--- NOTE | 2024-12-02 16:40 | PC.NURSE ---
ptt anxious in room awaiting results. this RN checking in to see if she needs anything at this time. warm blanket given. reassured we will let her know when results are back.
[2024-12-02 17:11] VITALS: BP 134/95; PULSE 90; O2SAT 100
== END 2024-12-02 17:13 | disposition home or self-care (01) ==
PROVIDERS: Emergency Provider Student in an Organized Health Care Education/Training Program; PCP Nurse Practitioner Family
DX: Z03.823 Encounter for observation for suspected inserted (injected) foreign body ruled out (principal)
CPT/HCPCS: 76882; 93971; 99284